=== PATIENT | female | born 1960 | race Caucasian/White ===

== ENCOUNTER 2019-07-25 11:08 | Outpatient (CLI) | payer OTHER, SELFPAY ==
--- NOTE | ~2019-07-25 | US_ITS ---
EXAMINATION: US abdomen limited EXAM DATE: 07/25/2019 11:52 INDICATION: Nausea, right upper quadrant pain, symptoms one week. TECHNIQUE: Multiple grayscale and Doppler images of the abdomen right upper quadrant were obtained (b y a technologist who performed the scan) and subsequently reviewed. There is no prior study for kiesha mock. FINDINGS: The pancreatic head and body are normal in appearance. The pancreatic tail is not visualized. The l iver has normal echogenicity and contour. There are no focal liver lesions identified. There is no evidence of intrahepatic biliary duct dilation. Portal venous flow was seen in the hepatopedal, nor mal direction and has normal Doppler waveform. No right-sided hydronephrosis. Common bile duct measures 5 mm, which is normal. The gallbladder wall is normal in thickness, with ex pected amount of distention. No sonographic evidence of pericholecystic fluid. There is no cholelit hiases. Technologist performing exam reports patient did not demonstrate sonographic Morrison's sign. Please note that this sign is less reliable in patients who have received pain medication. IMPRESSION: 1. Unremarkable abdominal ultrasound exam. Reviewed, dictated and finalized at location B. ODUCTION TECHNICIAN
--- NOTE | ~2019-07-25 | XR_ITS ---
EXAMINATION: XR abdomen/kub 1V EXAM DATE: 07/25/2019 11:35 INDICATION: Nausea. Right-sided abdominal pain. History of hernia repair. TECHNIQUE: Frontal projection(s) of the abdomen for interpretation. There is no prior study for kiesha mock. FINDINGS: There is expected amount of colonic stool and gas. No small bowel dilation, nonobstructiv e bowel gas pattern. There are no suspicious calcifications identified. There is no organomegaly suspected. Moderate disc disease L4-5. IMPRESSION: Unremarkable abdomen x-ray exam. Reviewed, dictated and finalized at location B. RONMENTAL COORDINATOR
== END 2019-07-25 11:09 | disposition home or self-care (01) ==
PROVIDERS: PCP Family Medicine; Visit Provider Family Medicine
DX: R10.11 Right upper quadrant pain (principal)
CPT/HCPCS: 74018; 76705

== ENCOUNTER 2020-11-23 10:15 | Emergency (ER) | payer OTHER, SELFPAY ==
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
[2020-11-23 10:23] VITALS: BP 116/70; PULSE 71; RESP 16; TEMP 36.3; O2SAT 99
== END 2020-11-23 10:44 | disposition home or self-care (01) ==
PROVIDERS: Emergency Provider Nurse Practitioner Family; PCP Family Medicine
DX: S05.02XA Injury of conjunctiva and corneal abrasion without foreign body, left eye, initial encounter (principal); X58.XXXA Exposure to other specified factors, initial encounter; Z85.3 Personal history of malignant neoplasm of breast
CPT/HCPCS: 99213; A9270; G0463

== ENCOUNTER 2021-01-13 11:58 | Outpatient (CLI) | payer OTHER, SELFPAY ==
--- NOTE | ~2021-01-13 | XR_ITS ---
EXAMINATION: XR chest 2V DATE: 01/13/2021 12:17 INDICATION: Shortness of breath. TECHNIQUE: Frontal and lateral views of the chest were obtained. COMPARISON: Chest 2 views 03/03/2018, CT abdomen and pelvis 03/03/2018 FINDINGS: There is mild atelectasis in left lower lung zone. No pleural effusion or pneumothorax. The heart size is normal. IMPRESSION: 1. Mild atelectasis in left lower lung zone. Reviewed, dictated and finalized at location B.
== END 2021-01-13 11:59 | disposition home or self-care (01) ==
LOC: ANHIMG 12:04
PROVIDERS: PCP Family Medicine; Visit Provider Family Medicine
DX: R09.89 Other specified symptoms and signs involving the circulatory and respiratory systems (principal); R06.02 Shortness of breath; R91.8 Other nonspecific abnormal finding of lung field
CPT/HCPCS: 71046

== ENCOUNTER → 2021-05-27 01:50 | Outpatient (CLI) | payer OTHER, SELFPAY ==
[2021-05-28 03:59] LABS: SARS-CoV-2 RNA PCR Negative
== END ==
PROVIDERS: PCP Family Medicine; Visit Provider Physician Assistant
DX: J02.9 Acute pharyngitis, unspecified (principal); R51.9 Headache, unspecified; Z20.822 Contact with and (suspected) exposure to COVID-19
CPT/HCPCS: C9803; U0003; U0005

== ENCOUNTER 2021-07-07 15:06 | Emergency (ER) | payer OTHER, SELFPAY ==
[2021-07-07 15:15] VITALS: BP 138/80; PULSE 74; RESP 16; TEMP 36.7; O2SAT 98
--- NOTE | 2021-07-07 15:16 | ED.URI ---
HPI - URI/Sore Throat General Chief Complaint: Upper Respiratory Infection Stated Complaint: Sinus headache, tight chest. Time Seen by Provider: 07/07/21 15:06 Source: patient and RN notes reviewed History of Present Illness HPI Narrative: Patient is 61-year-old female who presents the urgent care with complaints of 3-week history of sinus headache and drainage. Patient states that 2 weeks ago she was placed on a Z-Sandor and steroids. States that she finished a Z-Sandor and took 3 days of the steroids. States that ever since she took the steroid she has had a funny tight feeling in the chest . Patient states that her upper respiratory symptoms are her typical allergy-like symptoms . Denies of any recent fevers, nausea, vomiting or shortness of breath. Patient states that her PCP was supposed to order her an outpatient x-ray, which was not found in the computer system. Patient denies of any recent cough or exposures to illness. Denies of any chest pain or cardiac history. No other acute complaints. No acute distress noted. Patient read the plan of care. Some parts of this dictation were generated by voice recognition software and may contain typographical and/or grammatical inaccuracies. Related Data Home Medications Medication Instructions Recorded Confirmed alprazolam 0.5 mg tablet 0.5 mg PO DAILY 04/06/19 07/07/21 calcium carbonate 600 mg-vitamin 1 tablet PO DAILY 04/06/19 07/07/21 D3 20 mcg (800 unit) chewable tablet clonazepam 1 mg tablet 1 mg PO DAILY 04/06/19 07/07/21 coenzyme Q10 200 mg capsule 200 mg PO DAILY 04/06/19 07/07/21 famotidine 20 mg tablet 20 mg PO DAILY 04/06/19 07/07/21 fluticasone propionate 50 2 spray NASAL DAILY 04/06/19 07/07/21 mcg/actuation nasal spray,suspension sertraline 100 mg tablet 100 mg PO DAILY 04/06/19 07/07/21 Allergies Allergy/AdvReac Type Severity Reaction Status Date / Time Barbiturates Allergy Severe ANALPHALAXI Verified 07/07/21 15:20 S belladonna alkaloids Allergy Severe ANALPHALAXI Verified 07/07/21 15:20 S Cephalosporins Allergy Severe RASH Verified 07/07/21 15:20 cortisone Allergy Severe HIVES Verified 07/07/21 15:20 phenobarbital Allergy Severe ANALPHALAXI Verified 07/07/21 15:20 S cat dander Allergy Unknown Sneezing Verified 07/07/21 15:20 cephalexin Allergy Unknown serum Verified 07/07/21 15:20 sickness Corticosteroids Allergy Unknown Skin Verified 07/07/21 15:20 (Glucocorticoids) Reaction docetaxel Allergy Unknown Asthma Verified 07/07/21 15:20 mold Allergy Unknown Sneezing Verified 07/07/21 15:20 Penicillins Allergy Unknown Rash Verified 07/07/21 15:20 prochlorperazine Allergy Unknown dystonic Verified 07/07/21 15:20 reaction ciprofloxacin [From Cipro] Allergy Unknown Verified 07/07/21 15:20 ANTICHOLINERGICS,OTHER Allergy Severe ANALPHALAXI Uncoded 07/07/21 15:20 S Review of Systems Review of Systems: CONSTITUTIONAL: Denies fever, chills, or sweats. EYES: Denies visual changes, redness, or discharge. ENT: Reports of sinus pressure/headache, congestion and postnasal drainage CARDIOVASCULAR: Reports of a funny feeling in the chest . Denies chest pain, palpitations, or edema. RESPIRATORY: Denies cough or dyspnea. GASTROINTESTINAL: Denies abdominal pain, nausea, vomiting, or diarrhea. GENITOURINARY: Denies dysuria or hematuria. SKIN: Denies rash or itching. MUSCULOSKELETAL: Denies back pain, joint pain, or myalgia. NEUROLOGIC: Denies headache, numbness, or weakness. All other systems reviewed are negative, except as documented in HPI. [facility] Past Medical History Medical History (Updated 07/07/21 @ 16:10 by ÁNGELA Alex) Breast cancer (~2012) Cyst (~10/24/08) Encounter for HCV screening test for low risk patient (~09/24/17) History of bone density study (~07/19/12) Mammogram normal (~07/02/11) Surgical History Surgical History History of breast biopsy (~07/29/12) Hist
[2021-07-07 15:21] VITALS: BP 138/80; PULSE 74; RESP 16; TEMP 36.7; O2SAT 98
--- NOTE | 2021-07-07 15:39 | ECG_ITS ---
Measurements Intervals [place] Rate: 63 P: 23 VT: 179 QRS: -67 QRSD: 114 T: 1 QT: 465 QTc: 479 Interpretive Statements SINUS RHYTHM INCOMPLETE RIGHT BUNDLE BRANCH BLOCK LEFT ANTERIOR FASCICULAR BLOCK BORDERLINE T WAVE ABNORMALITY- INFERIOR LEADS BASELINE ARTIFACT- I, II, III, AVR, AVL, AVF ABNORMAL ECG Electronically Signed On 07-07-2021 16:44:06 CONTROL CLERK HEAD by Ady Still D.O.
== END 2021-07-07 16:15 | disposition home or self-care (01) ==
PROVIDERS: Emergency Provider Nurse Practitioner Family; PCP Family Medicine
DX: J32.9 Chronic sinusitis, unspecified (principal); Z85.3 Personal history of malignant neoplasm of breast
CPT/HCPCS: 93005; 99213; G0463

== ENCOUNTER → 2021-07-23 02:19 | Outpatient (CLI) | payer OTHER, SELFPAY ==
[2021-07-23 12:41] LABS: SARS-CoV-2 RNA PCR Positive
== END ==
PROVIDERS: PCP Family Medicine; Visit Provider Family Medicine
DX: U07.1 COVID-19 (principal)
CPT/HCPCS: C9803; U0003; U0005

== ENCOUNTER 2021-10-28 10:16 | Emergency (ER) | payer OTHER, SELFPAY ==
--- NOTE | ~2021-10-28 | CT_ITS ---
EXAMINATION: CT abdomen pelvis wo con DATE: 10/28/2021 11:38 INDICATION: Right lower quadrant abdominal pain TECHNIQUE: Computed tomography (CT) of the abdomen and pelvis was performed without intravenous contr ast. Automated exposure control and iterative reconstruction technique were employed. The dose-length product was 788.89 mGy-cm. COMPARISON: 03/03/2018 FINDINGS: Mild linear discoid atelectasis at the lingula. Heart size is normal. Atherosclerotic coronary artery calcific location. Aortic valve calcification. No pericardial or pleural effusion. Persistent wall t hickening at the distal esophagus. Changes consistent with prior right mastectomy and right breast im plant reconstruction. Liver, gallbladder, spleen, pancreas, right adrenal gland and kidney are normal . Postoperative changes interval left nephrectomy and adrenalectomy. Bladder is normal. The uterus an d right ovary are not identified and have likely been surgically resected. There are few scattered cl onic diverticula without adjacent inflammatory change to suggest diverticulitis. Small bowel and appe ndix are normal. No free intraperitoneal gas or fluid. No pathologically enlarged abdominal or pelvic lymphadenopathy. Severe spondylosis at L4-L5. IMPRESSION: 1. Normal appendix. No acute intra-abdominal/pelvic process. 2. Persistent wall thickening the distal esophagus suggestive of esophagitis which could be due to re flux. 3. Multiple postoperative changes as detailed above. Reviewed, dictated and finalized at location B. IMPRESSION: 1. Normal appendix. No acute intra-abdominal/pelvic process. 2. Persistent wall thickening the distal esophagus suggestive of esophagitis wh ich could be due to reflux. 3. Multiple postoperative changes as detailed above.
[2021-10-28 10:37] VITALS: BP 122/56; PULSE 65; RESP 14; TEMP 36.2; O2SAT 98
[2021-10-28 10:56] LABS: Basophils Absolute Auto 0.1 K/mm3 (0.0-0.1); Basophils Percent Auto 1.5 % (0.2-1.2); Eosinophils Absolute Auto 0.4 K/mm3 (0-0.3); Hematocrit 42.1 % (37.0-47.0); Hemoglobin 13.2 g/dL (12.0-15.0); Immature Granulocyte Absolute 0.05 K/mm3 (0.00-0.031); Immature Granulocyte Percent A 0.6 % (0-0.5); Lymphocytes Absolute Auto 2.93 K/mm3 (0.9-3.2); Lymphocytes Percent Auto 33.4 % (18.3-44.2); Mean Corpuscular HGB Conc 31.4 g/dl (32-36); Mean Corpuscular Volume 92.5 fl (80-100); Mean Platelet Volume 10.1 fl (7.4-10.4); Monocytes Absolute Auto 0.8 K/mm3 (0.1-0.6); Monocytes Percent Auto 8.8 % (2.6-8.5); Neutrophils Absolute Auto 4.5 K/mm3 (1.3-6.7); Neutrophils Percent Auto 50.7 % (45.5-73.1); Platelet Count Result 325 k/mm3 (150-375); Red Blood Count 4.55 M/mm3 (4.2-5.4); Red Cell Distribution Width 13.2 % (11.5-14.5); White Blood Count 8.8 K/mm3 (4.5-10.0)
[2021-10-28 11:04] LABS: Appearance Urine Clear (Clear); Bilirubin Urine Negative (Negative); Blood Urine Negative (Negative); Color Urine Yellow (Yellow); Glucose Urine UA Negative (Negative); Ketones Urine Negative (Negative); Leukocyte Esterase Ur Negative LEU/UL (Negative); Nitrate Urine Negative (Negative); Protein Urine Negative (Negative); Specific Grav Ur 1.015 (1.001-1.035); Urobilinogen Urine 0.2 mg/dL (<2.0); pH Urine 5.5 (5.0-9.0)
[2021-10-28 11:06] LABS: Chloride 104 mmol/L (98-107); Potassium 4.4 mmol/L (3.4-5.0); Sodium 139 mmol/L (137-145)
[2021-10-28 11:07] LABS: Add Urine Microscopic? NO; Alanine Aminotransferase 37 U/L (6-35); Albumin Level 4.6 g/dL (3.5-5.1); Alkaline Phosphatase 97 U/L (38-126); Anion Gap 9 mmol/L (8-16); Aspartate Amino Transferase 30 U/L (14-36); Bilirubin,Total 0.3 mg/dL (0.2-1.3); Blood Urea Nitrogen 18 mg/dL (7-17); Calcium 9.5 mg/dL (8.4-10.2); Carbon Dioxide 26 mmol/L (22-30); Estimated Glomerular Filt Rate 50; Glucose 94 mg/dL (65-110); Lipase 203 U/L (23-300)
[2021-10-28 12:25] VITALS: BP 123/69; PULSE 65; RESP 18; O2SAT 98
--- NOTE | 2021-10-28 12:44 | ED.ABDPAIN ---
HPI - Abdominal Pain General Chief Complaint: Abdominal Pain Stated Complaint: abd pain Time Seen by Provider: 10/28/21 11:26 History of Present Illness HPI narrative: 61-year-old female presenting with left lower quadrant pain, she has occasionally had pain like this before but this time she came in because it wasn't going away. She describes it as less of a pain and more like an annoyance, it does not radiate anywhere, she does not have any nausea, vomiting, or diarrhea or constipation, she is having normal bowel movements, no fevers no chills. No dysuria. Has taken some Tylenol at home which did improve her symptoms. Related Data Home Medications Medication Instructions Recorded Confirmed alprazolam 0.5 mg tablet (Xanax) 0.5 mg PO DAILY 04/06/19 10/13/21 calcium carbonate 600 mg-vitamin 1 tablet PO DAILY 04/06/19 10/13/21 D3 20 mcg (800 unit) chewable tablet (Caltrate 600 plus D) coenzyme Q10 200 mg capsule (Co 200 mg PO DAILY 04/06/19 10/13/21 Q-10) famotidine 20 mg tablet 20 mg PO DAILY 04/06/19 10/13/21 fluticasone propionate 50 2 spray intranasal DAILY 04/06/19 10/13/21 mcg/actuation nasal spray,suspension sertraline 100 mg tablet 100 mg PO DAILY 04/06/19 10/13/21 clonazepam 0.5 mg tablet (Klonopin) 0.5 mg PO DAILY 07/21/21 10/13/21 estradiol (Estrace) See Rx Instructions vaginal DAILY 07/21/21 10/13/21 Allergies Allergy/AdvReac Type Severity Reaction Status Date / Time Barbiturates Allergy Severe ANALPHALAXI Verified 10/13/21 09:30 S belladonna alkaloids Allergy Severe ANALPHALAXI Verified 10/13/21 09:30 S Cephalosporins Allergy Severe RASH Verified 10/13/21 09:30 cortisone Allergy Severe HIVES Verified 10/13/21 09:30 phenobarbital Allergy Severe ANALPHALAXI Verified 10/13/21 09:30 S cat dander Allergy Unknown Sneezing Verified 10/13/21 09:30 cephalexin Allergy Unknown serum Verified 10/13/21 09:30 sickness Corticosteroids Allergy Unknown Skin Verified 10/13/21 09:30 (Glucocorticoids) Reaction docetaxel Allergy Unknown Asthma Verified 10/13/21 09:30 mold Allergy Unknown Sneezing Verified 10/13/21 09:30 Penicillins Allergy Unknown Rash Verified 10/13/21 09:30 prochlorperazine Allergy Unknown dystonic Verified 10/13/21 09:30 reaction ciprofloxacin [From Cipro] Allergy Unknown Verified 10/13/21 09:30 ANTICHOLINERGICS,OTHER Allergy Severe ANALPHALAXI Uncoded 10/13/21 09:30 S Review of Systems Review of Systems: CONST: No fever. HEENT: No sore throat C/V: No chest pain RESP: No cough GI: Reports abdominal discomfort in the left lower quadrant : No dysuria. M/S: No joint pain. SKIN: No rash. NEURO: [No headache or focal numbness or weakness] PSYCH: [No depression] [facility] Past Medical History Medical History Breast cancer (~2012) Cyst (~10/24/08) Encounter for HCV screening test for low risk patient (~09/24/17) History of bone density study (~07/19/12) Mammogram normal (~07/02/11) Surgical History Surgical History History of breast biopsy (~07/29/12) History of section (~1987) History of colonoscopy (~06/21/09) History of hernia surgery (~05/29/19) History of kidney removal (~02/2018) History of shoulder surgery (~2004) History of vaginal hysterectomy (~09/24/17) Family History Family History Grandparent Family history of mental disorder Malignant neoplasm of prostate Family history of malignant neoplasm of breast Mother Hypertension Family history of malignant neoplasm Sibling Hypertension Cerebrovascular accident Father Cerebrovascular accident Malignant neoplasm of prostate Family history of coronary artery disease Diabetes mellitus Family history of cardiovascular disease Family history of malignant neoplasm of thyroid Other Family history of elevated blood lipids Soci
== END 2021-10-28 13:03 | disposition home or self-care (01) ==
PROVIDERS: Emergency Provider Emergency Medicine; PCP Family Medicine
DX: R10.32 Left lower quadrant pain (principal); Z85.3 Personal history of malignant neoplasm of breast
CPT/HCPCS: 36415; 74176; 80053; 81003; 83690; 85025; 99284

== ENCOUNTER → 2022-08-14 11:30 | Outpatient (CLI) | payer OTHER, SELFPAY ==
--- NOTE | ~2022-08-14 | XR_ITS ---
Lumbosacral Spine: AP, oblique, and lateral views Clinical History: Pain Findings: The normal lordotic curve is maintained. No fracture or subluxation seen. There is advanced degenerative disc narrowing at L4-L5. There is mild facet arthropathy from L4 through S1. The sacroi liac joints are normally outlined. Impression: Overall mild to moderate degenerative spondylosis, as detailed above. Reviewed, dictated and finalized at location . Impression: Overall mild to moderate degenerative spondylosis, as detailed above.
--- NOTE | ~2022-08-14 | XR_ITS ---
Thoracic spine: Clinical Indication: Back pain AP and lateral views were performed. No fracture is seen. There is normal alignment of the vertebrae. There is probable DISH of the lower thoracic spine. The intervertebral disc spaces appear normal. Paravertebral soft tissues appear norm al. Impression: DISH of the lower thoracic spine. Reviewed, dictated and finalized at location . Impression: DISH of the lower thoracic spine.
== END ==
PROVIDERS: PCP Family Medicine; Visit Provider Family Medicine
DX: M48.14 Ankylosing hyperostosis [Forestier], thoracic region (principal); M47.896 Other spondylosis, lumbar region
CPT/HCPCS: 72070; 72110

== ENCOUNTER 2023-02-04 08:41 | Outpatient (CLI) | payer OTHER, SELFPAY ==
--- NOTE | ~2023-02-04 | DEXA_ITS ---
Bone Density Report Name: JERROD MCCRAY Age: 62 Sex: Female Ethnicity: White Date of : 1960 Indication: postmenopausal; screening for osteoporosis; Referring Provider: IVELISSE BLEDSOE Study: Bone densitometry was performed. Exam Date: February 04, 2023 Accession number: [id number] Bone Density: Region BMD T-score Z-score Classification AP Spine(L1-L4) 0.994 -0.5 1.3 Normal Femoral Neck (Left) 0.696 -1.4 0.1 Osteopenia Total Hip (Left) 0.832 -0.9 0.3 Normal Femoral Neck (Right) 0.646 -1.8 -0.3 Osteopenia Total Hip (Right) 0.752 -1.6 -0.4 Osteopenia Total Hip Mean 0.792 -1.3 -0.1 Osteopenia World Health Organization criteria for BMD impression classify patients as: Normal (T-score at or above -1.0), Osteopenia (T-score between -1.0 and -2.5), or Osteoporosis (T-score at or below -2.5). 10-year Fracture Risk(1): Major Osteoporotic Fracture 9.2% Hip Fracture 1.1% Reported Risk Factors: [place] (), Neck BMD=0.646, BMI=34.4 (1) FRAX(R) Version 3.08. Fracture probability calculated for an untreated patient. Fracture probability may be lower if the patient has received treatment. Clinical Information Provided by Patient: Menopause Age: 38 Impression: The patient has low bone mass, based on the Right Femoral Neck T-score. The patient has an estimated ten-year risk of hip fracture of 1.1% and an estimated ten-year risk of major fracture of 9.2%, based on the WHO FRAX algorithm. Discussion: BONE DENSITY IS LOW AT ONE OR MORE SKELETAL SITES. This patient's lowest T-score is low at one or more skeletal sites. It meets the World Health Organization's (WHO) criteria for ?low bone mass? (T-score between -1.0 and -2.5). The patient's 10-year risk of fracture as calculated by FRAX is less than the threshold where pharmacological therapy is recommended by the National Osteoporosis Foundation (NOF). However, all treatment decisions require clinical judgment and consideration of individual patient factors, including patient preferences, comorbidities, previous drug use, risk factors not captured in the FRAX model (e.g., frailty, falls, vitamin D deficiency, increased bone turnover, interval significant decline in bone density) and possible under or overestimation of fracture risk by FRAX. The patient should follow a healthful lifestyle (good nutrition with adequate calcium and vitamin D, and appropriate weight-bearing exercise). Follow-Up: Consider repeating this study in 2 to 3 years to reassess this patient's status, or sooner if there is some new clinical indication. Reported by: DESIREE on 02/04/2023 9:27:00 AM. Reviewed, dictated and finalized at location AArthur SUNSHINE
--- NOTE | ~2023-02-04 | MM_ITS ---
CORRECTED REPORT Exam description change [facility] 02/04/23 This report was recreated on 02/04/23. Original report was EXAMINATION: MM screening primitivo LT w matt HISTORY: Screening mammogram TECHNIQUE: Craniocaudal and mediolateral oblique 3-D tomosynthesis images were obtained and synthetic 2-D images were generated. CAD analysis was submitted and interpreted. COMPARISON: July 22, 2012 diagnostic right mammogram and right breast ultrasound examination July 19, 2012 bilateral screening mammogram BREAST PARENCHYMAL COMPOSITION: The left breast is heterogeneously dense, which may obscure small masses. FINDINGS: There are a few scattered punctate benign-appearing microcalcifications. There is no evidence of suspicious mass, calcification, or architectural distortion to suggest malignancy. There has been no suspicious interval change. IMPRESSION: 1. Status post right mastectomy for breast cancer No mammographic evidence of malignancy of left breast. 2. Recommend routine screening mammography in one year. BI-RADS Category 2: Benign finding(s). Reviewed, dictated and finalized at location A. MTDD IMPRESSION: 1. Status post right mastectomy for breast cancer No mammographic evidence of m alignancy of left breast. 2. Recommend routine screening mammography in one year. BI-RADS Category 2: Benign finding(s).
== END 2023-02-04 08:42 | disposition home or self-care (01) ==
PROVIDERS: PCP Family Medicine; Visit Provider Family Medicine
DX: Z12.31 Encounter for screening mammogram for malignant neoplasm of breast (principal); Z78.0 Asymptomatic menopausal state; M85.852 Other specified disorders of bone density and structure, left thigh; M85.851 Other specified disorders of bone density and structure, right thigh
CPT/HCPCS: 77063; 77067; 77080

== ENCOUNTER → 2023-03-25 10:47 | Outpatient (CLI) | payer OTHER, SELFPAY ==
--- NOTE | ~2023-03-25 | US_ITS ---
EXAMINATION: US thyroid DATE: 03/25/2023 11:05 INDICATION: Nontoxic single thyroid nodule. TECHNIQUE: Multiple ultrasound images of the thyroid were obtained. COMPARISON: None. FINDINGS: The right thyroid lobe measures 5.3 x 2.1 x 1.6 cm. The left thyroid lobe measures 4.1 x 1.6 x 1.4 c m. There is normal echotexture and echogenicity throughout the thyroid gland. No discrete nodules id entified. Normal vascular flow is present. IMPRESSION: 1. Normal thyroid. Reviewed, dictated and finalized at location E. IMPRESSION: 1. Normal thyroid.
== END ==
PROVIDERS: PCP Nurse Practitioner; Visit Provider Nurse Practitioner
DX: E04.1 Nontoxic single thyroid nodule (principal)
CPT/HCPCS: 76536

== ENCOUNTER 2023-12-28 09:25 | Emergency (ER) | payer BC, SELFPAY ==
[2023-12-28] VITALS (39 sets, daily range): BP systolic 120–155; BP diastolic 59–88; PULSE 72–101; RESP 12–29; TEMP 36.3–37.4; O2SAT 96–100
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
--- NOTE | 2023-12-28 09:27 | ECG_ITS ---
Test Date: 2023-12-28 09:42:34 Measurements Intervals [place] Rate: 70 P: 17 WI: 169 QRS: -57 QRSD: 109 T: -1 QT: 422 QTc: 458 Interpretive Statements SINUS RHYTHM INCOMPLETE RIGHT BUNDLE BRANCH BLOCK LEFT ANTERIOR FASCICULAR BLOCK BORDERLINE T WAVE ABNORMALITY- INFERIOR LEADS BASELINE ARTIFACT- I, II, III, AVR, AVL, AVF, V1-V5 ABNORMAL ECG No previous ECG available for comparison Electronically Signed On 12-28-2023 10:22:16 CDT by Ady Still D.O.
[2023-12-28 09:56] LABS: Basophils Absolute Auto 0.1 K/mm3 (0.0-0.1); Basophils Percent Auto 0.9 % (0.2-1.2); Eosinophils Absolute Auto 0.6 K/mm3 (0-0.3); Eosinophils Percent Auto 4.2 % (0-4.4); Hematocrit 22.8 % (37.0-47.0); Immature Granulocyte Percent A 0.7 % (0-0.5); Lymphocytes Absolute Auto 2.62 K/mm3 (0.9-3.2); Lymphocytes Percent Auto 19.4 % (18.3-44.2); Mean Corpuscular HGB Conc 28.1 g/dl (32-36); Mean Corpuscular Hemoglobin 20.4 pg (26-34); Mean Corpuscular Volume 72.6 fl (80-100); Mean Platelet Volume 9.7 fl (7.4-10.4); Monocytes Absolute Auto 1.1 K/mm3 (0.1-0.6); Monocytes Percent Auto 7.8 % (2.6-8.5); Platelet Count Result 541 k/mm3 (150-375); Red Blood Count 3.14 M/mm3 (4.2-5.4); Red Cell Distribution Width 16.4 % (11.5-14.5); White Blood Count 13.5 K/mm3 (4.5-10.0)
--- NOTE | 2023-12-28 10:00 | ED.RECABL ---
HPI - Recheck/Abnormal Lab/Rx General Chief Complaint: Recheck/Abnormal Lab/Rx <Luann Schrader PA-C - Last Filed: 12/29/23 09:20> Stated Complaint: hgb recheck <Luann Schrader PA-C - Last Filed: 12/29/23 09:20> Time Seen by Provider: 12/28/23 09:27 <LEANNE Whitman Last Filed: 12/29/23 09:20> Source: patient <LEANNE Whitman Last Filed: 12/29/23 09:20> Mode of arrival: ambulatory <LEANNE Whitman Last Filed: 12/29/23 09:20> Limitations: no limitations <LEANNE Whitman Last Filed: 12/29/23 09:20> History of Present Illness HPI narrative: Patient is a 63-year-old female who presents the ED with report of abnormal labs. Patient reports over the last few weeks she has noticed increased fatigue, muscle fatigue with simple exercises, shortness of breath with exertion, chest tightness, intermittent lightheadedness. She had a routine appointment with her primary care doctor today and had labs drawn yesterday which showed a hemoglobin of 6.5. She was then return to the ED for further evaluation. Patient reports history of anemia as a child and after a hysterectomy several years ago, but denies known history recently. She had routine labs drawn in July which showed hemoglobin of 12.4. Patient denies any recent bleeding, vaginal bleeding, hematuria, epistaxis, rectal bleeding, melena. She had a colonoscopy in 2019 which was normal. States she is due for 1 next year. Denies current chest pain, nausea, vomiting, abdominal pain, headache, vision changes, focal weakness or numbness. <LEANNE Whitman Last Filed: 12/29/23 09:20> Related Data Home Medications: Home Medications Medication Instructions Recorded Confirmed calcium carbonate 600 mg-vitamin 1 tablet PO DAILY 04/06/19 12/22/23 D3 20 mcg (800 unit) chewable tablet (Caltrate 600 plus D) coenzyme Q10 200 mg capsule (Co 200 mg PO DAILY 04/06/19 12/22/23 Q-10) fluticasone propionate 50 2 spray intranasal DAILY 04/06/19 12/22/23 mcg/actuation nasal spray,suspension sertraline 100 mg tablet 100 mg PO DAILY 04/06/19 12/22/23 estradiol 0.01% (0.1 mg/gram) See Rx Instructions vaginal DAILY 07/21/21 12/22/23 vaginal cream (Estrace) clonazepam 0.5 mg tablet (Klonopin) 0.5 mg PO DAILY 02/12/22 12/22/23 alprazolam 0.5 mg tablet (Xanax) 0.5 mg PO DAILY PRN 03/09/22 12/22/23 cholecalciferol (vitamin D3) 25 25 mcg PO DAILY 07/07/22 12/22/23 mcg (1,000 unit) tablet Saccharomyces boulardii 250 mg 250 mg PO BID 03/29/23 12/22/23 capsule (Daily Probiotic (S. boulardii)) <Luann Schrader PA-C - Last Filed: 12/29/23 09:20> Allergies/Adverse Reactions: Allergies Allergy/AdvReac Type Severity Reaction Status Date / Time Barbiturates Allergy Severe ANALPHALAXI Verified 12/28/23 08:49 S belladonna alkaloids Allergy Severe ANALPHALAXI Verified 12/28/23 08:49 S Cephalosporins Allergy Severe RASH Verified 12/28/23 08:49 cortisone Allergy Severe HIVES Verified 12/28/23 08:49 phenobarbital Allergy Severe ANALPHALAXI Verified 12/28/23 08:49 S cat dander Allergy Unknown Sneezing Verified 12/28/23 08:49 cephalexin Allergy Unknown serum Verified 12/28/23 08:49 sickness Corticosteroids Allergy Unknown Skin Verified 12/28/23 08:49 (Glucocorticoids) Reaction docetaxel Allergy Unknown Asthma Verified 12/28/23 08:49 mold Allergy Unknown Sneezing Verified 12/28/23 08:49 Penicillins Allergy Unknown Rash Verified 12/28/23 08:49 prochlorperazine Allergy Unknown dystonic Verified 12/28/23 08:49 reaction ciprofloxacin [From Cipro] Allergy Unknown Verified 12/28/23 08:49 hydromorphone [From Dilaudid] AdvReac Severe hallucinati Verified 12/28/23 08:49 on ANTICHOLINERGICS,OTHER Allergy Severe ANALPHALAXI Uncoded 12/28/23 08:49 S <Luann Schrader PA-C - Last Filed: 12/29/23 09:20> Review of Systems Review of Sys
[2023-12-28 10:07] LABS: Alanine Aminotransferase 25 U/L (6-35); Albumin Level 4.3 g/dL (3.5-5.1); Alkaline Phosphatase 135 U/L (38-126); Anion Gap 8 mmol/L (4-12); Aspartate Amino Transferase 29 U/L (14-36); Bilirubin,Total 0.3 mg/dL (0.2-1.3); Blood Urea Nitrogen 17 mg/dL (7-17); Calcium 9.6 mg/dL (8.4-10.2); Carbon Dioxide 28 mmol/L (22-30); Chloride 99 mmol/L (98-107); Estimated CRCL calculation 61 ml/min; Estimated Glomerular Filt Rate > 60; Glucose 102 mg/dL (65-110); Potassium 4.5 mmol/L (3.4-5.0); Sodium 135 mmol/L (137-145)
[2023-12-28 10:08] LABS: Partial Thromboplastin Time 22.8 Seconds (22.3-36.8); Prothrombin Time 13.4 Seconds (11.1-14.7)
[2023-12-28 10:12] LABS: Iron 20 ug/dL (37-170)
[2023-12-28 10:13] LABS: Transferrin 416 mg/dL (206-381)
[2023-12-28 10:17] LABS: Hemoglobin 6.4 g/dL (12.0-15.0); Hypochromasia 3+; Platelet Estimate Increased (Adequate)
[2023-12-28 10:18] LABS: Anisocytosis 2+; Microcytosis 1+ (NORMAL); Ovalocytes 2+; Poikilocytosis 2+; Schistocytes None Seen; Target Cells 1+
[2023-12-28 10:25] LABS: NT Pro B Type Natriuretic Pept 61 pg/mL (19.9-100); Percent Iron Saturation 4 % (20-50); Troponin I < 0.012 ng/mL (0.000-0.034)
[2023-12-28 10:43] LABS: Thyroid Stimulating Hormone Reflex 0.638 uIU/mL (0.465-4.68)
[2023-12-28 10:47] LABS: Ferritin 4.05 ng/mL (11.1-264)
[2023-12-28 11:09] LABS: Appearance Urine Clear (Clear); Bilirubin Urine Negative (Negative); Blood Urine Negative (Negative); Color Urine Yellow (Yellow); Glucose Urine UA Negative (Negative); Ketones Urine Negative (Negative); Leukocyte Esterase Ur Negative LEU/UL (Negative); Nitrate Urine Negative (Negative); Protein Urine Negative (Negative); Specific Grav Ur 1.019 (1.001-1.035); Urobilinogen Urine 0.2 mg/dL (<2.0); pH Urine 6.5 (5.0-9.0)
[2023-12-28 11:13] LABS: Folic Acid 6.5 ng/mL (2.76->20)
[2023-12-28 11:18] LABS: Add Urine Microscopic? NO
--- NOTE | 2023-12-28 11:30 | PC.NURSE ---
blood consent signed and in chart
[2023-12-28] MEDS: SODIUM CHLORIDE 0.9% IV 250 ML 30 ML IV CONT (11:45)
--- NOTE | 2023-12-28 17:42 | PC.NURSE ---
1740 Spoke with Manuela from [facility]. Gave her an updated set of vitals and she states we should get a bed tonight.
--- NOTE | 2023-12-28 18:00 | PC.NURSE ---
Dinner tray ordered for pt.
[2023-12-28 18:58] LABS: Hematocrit 27.5 % (37.0-47.0); Hemoglobin 8.2 g/dL (12.0-15.0)
--- NOTE | 2023-12-28 19:53 | PC.NURSE ---
This RN assumed care of pt @[id number]
[2023-12-28] MEDS: ACETAMINOPHEN 500 MG TABLET 1000 MG PO (19:59)
== END 2023-12-29 00:27 | disposition short-term general hospital (02) ==
PROVIDERS: Physician Assistant; Emergency Provider Student in an Organized Health Care Education/Training Program; PCP Family Medicine
DX: D64.9 Anemia, unspecified (principal); R16.0 Hepatomegaly, not elsewhere classified; K92.2 Gastrointestinal hemorrhage, unspecified; Z85.3 Personal history of malignant neoplasm of breast; Z90.710 Acquired absence of both cervix and uterus; Z90.5 Acquired absence of kidney; Z79.899 Other long term (current) drug therapy; I45.2 Bifascicular block; R94.31 Abnormal electrocardiogram [ECG] [EKG]
CPT/HCPCS: 36415; 36430; 71046; 74177; 80053; 81003; 82607; 82728; 82746; 83540; 83550; 83880; 84443; 84466; 84484; 85014; 85018; 85025; 85610; 85730; 86850; 86900; 86901; 86920; 93005; 96360; 99285; A9270; J7050; P9016; Q9967

== ENCOUNTER 2024-06-10 14:04 | Emergency (ER) | payer OTHER, BC, SELFPAY ==
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
[2024-06-10 14:35] VITALS: BP 118/54; PULSE 78; RESP 18; TEMP 36.7; O2SAT 98
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
[2024-06-10 20:22] VITALS: BP 120/62; PULSE 73; RESP 18; O2SAT 98
== END 2024-06-10 20:59 | disposition home or self-care (01) ==
PROVIDERS: Emergency Provider Physician Assistant; PCP Family Medicine
DX: S16.1XXA Strain of muscle, fascia and tendon at neck level, initial encounter (principal); V49.40XA Driver injured in collision with unspecified motor vehicles in traffic accident, initial encounter
CPT/HCPCS: 70450; 72125; 72128; 72131; 73030; 99284

== ENCOUNTER 2024-10-19 08:19 | Outpatient (CLI) | payer BC, SELFPAY ==
--- NOTE | ~2024-10-19 | MM_ITS ---
EXAMINATION: MM screening primitivo LT w matt HISTORY: Screening TECHNIQUE: Craniocaudal and mediolateral oblique 3-D tomosynthesis images were obtained and synthetic 2-D images were generated. CAD analysis was submitted and interpreted. COMPARISON: Comparison to multiple prior studies sequentially, with oldest reviewed study dated 07/19. BREAST PARENCHYMAL COMPOSITION: Dense: The breasts are heterogeneously dense, which may obscure small masses FINDINGS: There is a new focal asymmetry in the upper outer quadrants of the left breast, posterior t hird. There are adjacent new calcifications which are indeterminate. There are no suspicious areas of architectural distortion. IMPRESSION: 1. New focal left breast asymmetry upper outer quadrant of the left breast, posterior third. There ar e adjacent indeterminate clustered calcifications. 2. Additional mammographic views and possible breast ultrasound are recommended. BI-RADS Category 0: Incomplete: Needs additional imaging evaluation. Reviewed, dictated and finalized at location [] IMPRESSION: 1. New focal left breast asymmetry upper outer quadrant of the left breast, pos terior third. There are adjacent indeterminate clustered calcifications. 2. Additional mammographic views and possible breast ultrasound are recommended . BI-RADS Category 0: Incomplete: Needs additional imaging evaluation.
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
--- OUTSIDE RECORDS SUMMARY | 2024-10-19 08:24 | XMS_ITS | Continuity of Care Document ---
Author Organization [facility] Address [address] [place] [address] Phone Care Team Providers Care Ap Operator Name Role Phone Myers OD, Farzad Unavailable Unavailable Advance Directives Directive Yes / No Effective Date File Name No Information Encounters Encounter Description Practice Location Reason(s) For Visit Diagnoses Date Provider Providers Copied on Encounter [facility], [address], [place], [place], [id number], [place] tel:[phone] [facility] No Information Sep-0 5-200 6 Myers OD Farzad. [address] , [address], [place], [address], [place]. tel:[phone] Family History Family Member Type Diagnosis Age At Onset No Information Payers Payer name Insurance type Covered green party ID Authoriza tion(s) No Information Social History Type Description Quantity Date Captured Comments Sex Female Smoking Status No Information Chief Complaint And Reason For Visit No Information Reason For Referral Reason For Referral No Information History Of Present Illness Encounter Date Complaint History Of Prese nt Illness No Information Functional Status Date Functional Assessmen t No Information Instructions Date Instruction Additional Infor mation No Information Assessments Type Assessment Date No Information Patient Care Teams Name Effective Dates (start - stop) Status Members No Information
--- OUTSIDE RECORDS SUMMARY | 2024-10-19 08:24 | XMS_ITS | Clinical Summary ---
Author Organization [facility] Medical [facility] 1 Address [address] [place] [address] Care Team Providers Care Stable Helper Name Role Phone Ashwini Enciso DO Primary Care Provider [phone] Allergies Active Allergy Reactions Criticality Noted Date Comments Cat Hair Std Allergenic Ext Other (See comments) Low 07/28/2012 Hay Fever Cephalexin Other (See comments),Rash Medium 10/29/2007 Red serum syndrome Ciprofloxacin Rash Medium 08/29/2012 And burning Cortisone Hives,Rash Medium 07/28/2012 Cortisone injection Hydrocortisone Urticaria Medium 10/29/2007 Injection only Docetaxel Nausea And Vomiting,Other (See comments),Shortness of breath High 10/13/2012 Facial flushing Mold Extracts Other (See comments) Low 07/28/2012 Hay fever Penicillins Rash Medium 07/28/2012 Prochlorperazine Anaphylaxis High 10/29/2007 Medications ALPRAZolam (XANAX) 1 mg tabletIndicatio ns:anxiety Take 1 mg by mouth daily as needed. 3 01/24/2018 Active cholecalciferol (VITAMIN D-3) 2,000 unit capsuleIndicati ons:Vitamin D Deficiency Take 1 capsule by mouth every morning. 02/13/2016 Active clonazePAM (KlonoPIN) 1 mg tabletIndicatio ns:Panic Disorder,Also takes 0.5mg nightly Take 1 mg by mouth 2 (two) times a day 1mg in am and 0.5 nightly Active coenzyme Q10 100 mg capsule Take 200 mg by mouth every morning. Active famotidine (PEPCID) 20 mg tabletIndicatio ns:gastroesopha geal reflux disease Take 20 mg by mouth every morning 08/31/2012 Active sertraline (ZOLOFT) 100 mg tabletIndicatio ns:Generalized Anxiety Disorder Take 100 mg by mouth nightly. Active metoprolol (LOPRESSOR) 50 mg tabletIndicatio ns:hypertension Take 50 mg by mouth 2 (two) times a day. Active calcium carbonate (CALCIUM 600 ORAL)Indication s:SUPPLEMENT Take 1 tablet by mouth nightly. Active estradiol (ESTRACE) 0.01 % (0.1 mg/gram) vaginal cream Insert 2 g into the vagina as needed Active lisinopril-hydr oCHLOROthiazide (ZESTORETIC) 10-12.5 mg per tablet Take by mouth 10/29/2007 Active atorvastatin (LIPITOR) 20 mg tablet TK 1 T PO D 04/11/2020 Active Active Problems Problem Noted Date Diagnosed Date Incisional hernia, without obstruction or gangre ne 02/16/2019 Overview (02/16/2019): Added automatically from request for surgery [id number] Renal mass 03/04/2018 Overview (03/04/2018): Added automatically from request for surgery [id number] Acute postoperative abdominal pain Hx of total cystectomy Immunizations Immunization Administration Dates Next Due Influenza, Unspecified 02/14/2019 Surgical History Surgery Date Site/Laterality Comments HYSTERECTOMY SECTION OOPHERECTOMY 05/31/2007 - 05/30/2008 MASTECTOMY Right BREAST RECONSTRUCTION SHOULDER SURGERY Left for shoulder adhesiolysis PORTACATH PLACEMENT PORT REMOVAL 09/28/2013 - 10/28/2013 COLONOSCOPY EMBOLIZATION ORGAN ISCHEMIA OR INFARCTION 03/10/2018 N/A NEPHRECTOMY RADICAL 03/10/2018 Left TONSILLECTOMY 05/31/1963 - 05/30/1964 INCISIONAL HERNIA REPAIR 05/29/2019 Robotic repair Medical History Medical History Date Comments Hypertension Breast cancer (HCC) Anxiety History of chemotherapy 08/2013 right br east cancer Depression Hyperlipidemia Anemia Renal mass GERD (gastroesophageal reflux disease) Panic attacks Hernia of abdominal cavity incis ional-LLQ Motion sickness PONV (postoperative nausea and vomiting) has not occurred with her most recent surgeries Gastric reflux Family History Medical History Relation Name Comments Coronary artery disease Brother Cancer Father Coronary artery disease Father Hypertension Father Stomach cancer Father Stroke Father Thyroid cancer Father Anemia Mother Heart failure Mother Heart disease Other Stroke Sister Anesthesia problems Neg Hx Relation Name Status Comments Brother Father Mother Other Sister Social History Tobacco Use Types Packs/Day Years Used Date Smoking Tobacco: Never Smokeless Tobacco: Never Alcohol Use Standard Drinks/Week Comments Yes 0 (1 standard drink = 0.6 oz pur e alcohol) rare/social Comments No Sex and Gender Information Value Date Recorded Sex Assigned at Not on file Legal Sex Female 6:25 AM [employer] Gender Identity Not on file Sexual Orientation Not on file Obstetrics History Last Filed Vital Signs Vital Sign Reading Time Taken Comments Blood Pressure 113/73 06/18/2020 8:35 AM [employer] Pulse 72 06/18/2020 8:35 AM [employer] Temperature 36.4 C (97.5 F) 06/18/2020 8:35 AM [employer] Respiratory Rate 15 06/01/2019 9:05 AM CLERK [employer] Oxygen Saturation 93% 06/01/2019 9:05 AM [employer]ERK [employer] Inhaled Oxygen Concentration - - Weight 93.9 kg (207 lb) 06/18/2020 8:35 AM [employer] Height 167.6 cm (5' 6 ) 06/18/2020 8:35 AM CL[employer] Body Mass Index 33.41 06/18/2020 8:35 AM CLERK [employer] Plan of Treatment Health Maintenance Due Date Last Done Comments Breast Cancer Screening-Mammogram 1958 Colon Cancer Screening-Colonoscopy 1960 Depression Screening 1958 Fall Risk Assessment 1958 Hepatitis C Screening 1958 Osteoporosis Screening-Bone Density Scan 1958 DTaP/Tdap/Td Vaccine (1 - Tdap) 1969 Hepatitis B Screening 1976 Pneumococcal vaccine 65+ (1 of 1 - PCV) 2008 Zoster Vaccine (1 of 2) 2008 Well Visit 65+ 2023 Influenza Vaccine (Season Ended) 2025 02/28/2019, 02/14/2019, 04/18/2018 Medical Devices Implanted Type Area [employer]er [employer] Dies Device Identifier Shelf Expiration Date Model / Serial / Lot [employer] Inc/C R Bard [id number] Bard Marlex [id number] Monofilament Gold Standard Flat Sheet - [id number] Implanted:Qty: 1 on 05/29/2019 by Robb Maier MD at [facility] Mesh N/A: Abdomen [employer]/C R Bard [id number] 04/27/2022 [id number] / / [id number] [employer] [id number] Carter 6mm 14cm 7.4 Loop Catheter End Hole Arterial Venous Coil - [id number] Implanted:Qty: 1 on 03/10/2018 at [facility] [employer] 08/28/2021 [id number] / / [id number] [employer] [id number] Carter 6mm 14cm 7.4 Loop Catheter End Hole Arterial Venous Coil - [id number] Implanted:Qty: 1 on 03/10/2018 at [facility] [employer] 08/28/2021 [id number] / / [id number] [employer] [id number] Carter 6mm 14cm 7.4 Loop Catheter End Hole Arterial Venous Coil - [id number] Implanted:Qty: 1 on 03/10/2018 at [facility] [employer] 08/28/2021 [id number] / / [id number] [employer] [id number] Carter 6mm 14cm 7.4 Loop Catheter End Hole Arterial Venous Coil - [id number] Implanted:Qty: 1 on 03/10/2018 at [facility] [employer] 07/28/2022 [id number] / / [id number] [employer] [id number] Carter 6mm 14cm 7.4 Loop Catheter End Hole Arterial Venous Coil - [id number] Implanted:Qty: 1 on 03/10/2018 at [facility] [employer] 06/05/2020 [id number] / / [id number] [employer] [id number] Carter 6mm 14cm 7.4 Loop Catheter End Hole Arterial Venous Coil - [id number] Implanted:Qty: 1 on 03/10/2018 at [facility] [employer] 08/13/2021 [id number] / / [id number] [employer] [id number] Angio-Seal Vip [employer]-Plus 6fr .035in 70cm Hemostatic Latex Free - [id number] Implanted:Qty: 1 on 03/10/2018 at [facility] [employer] 10/28/2018 [id number] / / [id number] Insurance [facility] H[facility]/PPO Address: [address] [place] [address] CHO[facility] H[facility]/PPO Address: [address] [place] [address] [employer] [facility] HMO/PPO Address: [address] [address] [place] [address] Advance Directives For more information, please contact: [phone] Documents on File Type Date Recorded Patient 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
--- OUTSIDE RECORDS SUMMARY | 2024-10-19 08:24 | XMS_ITS | Encounter Summary ---
Author Organization [employer] Address [address] [place] [address] Care Team Providers Care Residential Treatment Counselor Name Role Phone Ashwini Enciso DO Primary Care Provider +1- [phone] Reason for Referral * CT Scan (Routine) - Closed Specialty Diagnoses / Procedures Referred By Kimberley le Referred To Contact Diagnoses Cecal cancer (CMS/HCC) Mouth sores Encounter for antineoplastic chemotherapy Procedures CT CHEST ABDOMEN PELVIS W CONT Ness Guzman MD [address] [place] [address] Phone: tel: fax: [facility] [address] [place] [address] Phone: tel: fax: Referral ID Status Reason Start Date Expiration Date Visits Re quested Visits Authorized [id number] Closed 10/10/2024 12/08/2024 1 1 Reason for Visit * CT Scan (Routine) - Closed Specialty Diagnoses / Procedures Referred By Kimberley le Referred To Contact Diagnoses Cecal cancer (CMS/HCC) Mouth sores Encounter for antineoplastic chemotherapy Procedures CT CHEST ABDOMEN PELVIS W Ness Ferreira MD [address] [facility] [place] [address] Phone: tel: fax: [facility] [address] [place] [address] Phone: tel: fax: Referral ID Status Reason Start Date Expiration Date Visits Re quested Visits Authorized [id number] Closed 10/10/2024 12/08/2024 1 1 Encounter Details Date Type Department Care Team (Latest Contact Info) Description 10/17/2024 11:43 AM CDT - 10/17/2024 11:59 PM CDT Hospital Encounter [facility] Imaging Services [address] [place] [id number] Ness Guzman MD [address] [place], [place] [id number] Arrived Discharge Disposition: Home or Self Care Social History Tobacco Use Types Packs/Day Years Used Date Smoking Tobacco: Never Smokeless Tobacco: Never Alcohol Use Standard Drinks/Week Comments Yes 0 (1 standard drink = 0.6 oz pur e alcohol) rare Feeling Safe Answer Date Recorded Are you in a relationship wi th someone who hurts you emotionally and/or physically? 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 180 Tablet 10/07/2024 3:43 PM CDT 10/06/2024 omeprazole (PriLOSEC) 20 mg Capsule, Delayed Release(E.C.) Take 1 Capsule (20 mg) by mouth daily. 90 Capsule 1 09/13/2024 9:37 AM CDT 09/12/2024 sertraline (ZOLOFT) 100 mg tablet Take 1 Tablet (100 mg) by mouth daily. 90 Tablet 1 08/29/2024 11:43 AM CDT 08/28/2024 metoprolol tartrate (LOPRESSOR) 50 mg tablet Take 1 Tablet (50 mg) by mouth 2 times daily (every 12 hours). 180 Tablet 1 08/26/2024 10:56 AM CDT 08/25/2024 PEG-Electrolyte Soln (NULYTELY) 420 g Recon Soln Take 4,000 mL by mouth see administration instructions. 4000 mL 08/11/2024 3:10 PM CDT 08/08/2024 ALPRAZolam (XANAX) 1 mg tablet Take 1 Tablet (1 mg) by mouth 1 time daily as needed. 30 Tablet 5 07/07/2024 3:09 PM WEB ANALYST 07/06/2024 lidocaine-alumi num-magnesium hydroxide-simet hicone-diphenhy drAMINE mouthwash Swish and spit or swish and swallow 5 mL by mouth every 6 hours as needed for mouth sores. 300 mL 3 06/28/2024 8:21 AM WEB ANALYST 06/27/2024 VITAMIN B COMPLEX ORAL Take by mouth. atorvastatin (LIPITOR) 20 mg tablet Take 1 Tablet (20 mg) by mouth daily. 90 Tablet 1 04/19/2024 9:35 AM WEB ANALYST 01/10/2024 clonazePAM (KlonoPIN) 0.5 mg Tablet Take 1 Tablet (0.5 mg) by mouth 2 times daily. 180 Tablet 1 04/07/2024 9:53 AM WEB ANALYST 01/06/2024 omeprazole (PriLOSEC) 20 mg Capsule, Delayed Release(E.C.) Take 20 mg by mouth daily. estradioL (Estrace) 0.01% (0.1 mg/g) vaginal creamIndication s:Vaginal dryness INSERT 1 GRAM VAGINALLY 2 TO 3 TIMES EVERY WEEK NEEDED 42.5 Gram 3 03/20/2020 triamcinolone acetonide (NASACORT BOTH NOSTRIL) Administer in each nostril. Cholecalciferol , Vitamin D3, (VITAMIN D3) 2,000 unit Capsule Take 1 Capsule by mouth daily. 02/13/2016 coenzyme Q10 100 mg Capsule Take 200 mg by mouth daily. metoprolol tartrate (LOPRESSOR) 50 mg Oral tablet Take 50 mg by mouth 2 times daily. sertraline (ZOLOFT) 100 mg tablet Take 100 mg by mouth daily. documented as of this encounter Progress Notes * Aleida Roper, RT - 10/17/2024 12:30 PM CDT Computed Tomography Medication and Flush Protocol - Imaging Services [facility] THIS PROTOCOL IS IMPLEMENTED WHEN AN APPROVED PROVIDER ORDERS A CT SCAN WITH CONTRAST BY PAPER OR ELECTRONIC ORDER. ORDERS ARE ENTERED ???PER PROTOCOL OR STANDING - COSIGN REQUIRED.?? Enter the protocol in the patient's electronic health record using [employer] Communication Orders: For ordered imaging procedures requiring intravenous access: Initiate a peripheral IV, if not already in place, and discontinue IV prior to discharge. Medication Orders: *Any exception to these contrast protocols must be approved by a Radiologist and documented in the EHR Progress notes. When multiple medications are listed with the comment ???OR?? them, select the first option until challenges from product availability make this option unavailable Local anesthetic for use to initiate IV: ADULT Lidocaine 4% topical cream (L.M.X.4) applied topically ONE TIME prior to IV catheter insertion PRN (L.M.X.4 % should be applied 15 minutes prior to procedure) PEDIATRIC Lidocaine 4% topical cream (L.M.X.4) applied topically ONE TIME prior to IV catheter insertion PRN (apply 30 minutes prior to procedure) Sucrose 24% (Squirts) given PO prior to IV catheter insertion (administer 1 - 2 minutes prior to procedure) OR Sucrose 24% (Tootsweet; Sweet-Ease) oral solution 0.2 mL oral (apply to tongue on pacifier or clean, gloved finger), ONE TIME 2 minutes prior to painful procedure. May repeat dose x1 PRN to complete procedure. Sodium chloride 0.9% (normal saline) flush up to 10 mLs PRN for IV evaluation, saline lock, or medication administration. Sodium chloride 0.9% (normal saline) bolus up to 200 mLs PRN for power injection IV evaluation and IV Contrast flush. For all invasive procedures: obtain Lidocaine 1% for intra-procedure administration. If Lidocaine 1% unavailable, may substitute Lidocaine 2%. Procedure Specific Medications: When multiple medications are listed with the comment ???OR?? them, select the first option until challenges from product availability make this option unavailable. CT ORAL CONTRAST PROTOCOLS FOR ADULTS Use Iopamidol 76% (Isovue 370) [370 mg/mL organically bound iodine] OR Iopamidol 61% (Isovue 300) [300 mg/mL organically bound iodine] OR Iohexol (Omnipaque) [240 mg/ml organically bound iodine] (SUBJECT TO AVAILABILITY) for CT scan unless patient has a documented allergy to contrast dye. If allergy present, use Barium Sulfate (Creamy Vanilla Smoothie Readi-Cat 2 OR EZ Paque) for procedure. If at any time the [place] Operator has a question about which option to administer, seek clarification from a Radiologist. Iopamidol 76% (Isovue 370) [370 mg/mL organically bound iodine]: 15ml added to 900mL of clear liquid of patient's choice. Preferred route is oral. May use nasoenteric tube if needed. Administer 900mLof the diluted Iopamidol (Isovue- 370), orally, one time only. Iopamidol 61% (Isovue 300) [300 mg/mL organically bound iodine]: 300mg/ml: 30ml added to 960mL of clear liquid of patient's choice. Preferred route is oral. May use nasoenteric tube if needed. Administer 960mL of the diluted Isovue 300, orally, one time only. Iohexol (Omnipaque) [240 mg/ml organically bound iodine]: 50ml added to 960mL of clear liquid of patient's choice. Preferred route is oral. May use nasoenteric tube if needed. (SUBJECT TO AVAILABILITY). Administer 960mL of the diluted Omipaque, orally, one time only. Barium Sulfate (Creamy Vanilla Smoothie Readi-Cat 2) oral suspension: Preferred route is oral. May use nasoenteric tube if needed. Administer 450mL of barium sulfate, orally, one time only. OR Barium Sulfate (EZ Paque /Vanilla Silq) 96% oral suspension: Preferred route is oral. May use nasoenteric tube if needed. Administer 900mL of barium sulfate, orally, one time only. Bariatric Patient: Post-Surgery to 1 year - 50 mL total volume. NO carbonated liquids lopamidol 61% (Isovue 300) [300 mg/mL organically bound iodine]: mixed with water. Draw 50 mL of mixed solution for patient. Preferred route is orally. May use nasoenteric tube if needed. OR lohexol (Omnipaque) 240 mg/mL [organically bound iodine]: mixed with water. Draw 50mL of mixed solution for patient. Preferred route is orally. May use nasoenteric tube if needed. (SUBJECT TO AVAILABILITY) After 1 year - no more than 236 mL (8oz) total volume. NO carbonated liquids. lopamidol 61% (Isovue 300) 300 mg/mL [organically bound iodine]: mixed with water OR lohexol (Omnipaque) 240 mg/mL organically bound iodine: mixed with water (SUBJECT TO AVAILABILITY) For Enterography, give patient 450ml Breeza, a flavored beverage. For Cystogram (CT Pelvis): Iopamidol 61% (Isovue 300) 300 mg/mL [organically bound iodine] 50mL, diluted with 250mL of sterileNS. Inject Isovue into 250mL bag of NS. Clamp vora catheter prior to instilling solution via catheter. Instill up to 300mL of Isovue and NS solution into bladder via catheter, one time CT ORAL CONTRAST PROTOCOLS FOR PEDIATRICS When multiple medications are listed with the comment ???OR?? them, select the first option until challenges from product availability make this option unavailable. Pediatrics = up to age 18 Pediatric Radiologist will approve of one of the following products selected for procedure. Barium Sulfate (Creamy Vanilla Smoothie Readi-Cat 2 OR EZ Paque 96% oral suspension: preferred route is oral. May use nasoenteric tube if needed. [place] to 3 months Administer up to 90mL of Barium Sulfate, orally, one time only 4 months to 1 year old Administer up to 240mL of Barium sulfate, orally, one time only 1 year old to 5 years old Administer up to 360mL of Barium sulfate, orally, one time only 5 years old to 10 years old Administer up to 480mL of Barium sulfate, orally, one time only Over 10 years old Administer up to 600mL of Barium sulfate, orally, one time only Iopamidol 76% (Isovue 370) [370 mg/mL organically bound iodine] oral solution OR Iohexol (Omnipaque) [240 mg/ml organically bound iodine]: oral solution (SUBJECT TO AVAILABILITY) Dilute 25mL of Iopamidol with 480mL of clear liquid of patient's choice. Administer the diluted solution per age as follows: Preferred route is orally. May use nasoenteric tube if needed. Send any remaining diluted Iopamidol (Isovue 370) OR Iohexol (Omnipaque) solution with the patient to CT. Administer 45mL of diluted Iopamidol (Isovue 370) OR Iohexol (Omnipaque) oral solution, orally every 30 minutes x 2 doses. 1 month to 1 year old Administer 120mL of diluted Iopamidol (Isovue 370) OR Iohexol (Omnipaque) oral solution, orally every 30 min x 2 doses. 1 year old to 5 years old Administer 180mL of diluted Iopamidol (Isovue 370) OR Iohexol (Omnipaque)orally every 30 min x 2 doses. 5 years old to 10 years old Administer 240mL of diluted Iopamidol (Isovue 370) OR Iohexol (Omnipaque) orally every 30 min x 2 doses. Over 10 years old Administer 300mL of diluted Iopamidol (Isovue 370) OR Iohexol (Omnipaque) orally every 30 min x [address] RECTAL CONTRAST PROTOCOLS When multiple medications are listed with the comment ???OR?? them, select the first option until challenges from product availability make this option unavailable. ADULTS: Iopamidol 61% (Isovue 300) [300 mg/mL organically bound iodine]: Dilute 30mL of Isovue with 900mL of warm water in an enema bag. Administer the diluted solution rectally via gravity per patient's tolerance, up to 950mLs, one time only. OR Iohexol (Omnipaque) [240 mg/ml organically bound iodine]: Dilute 50mL of Omnipaque with 900mL of warm water in an enema bag. Administer the diluted solution rectally via gravity per patient's tolerance, up to 950mLs, one time only. (SUBJECT TO AVAILABILITY) CT IV CONTRAST PROTOCOLS When multiple medications are listed with the comment ???OR?? them, select the first option until challenges from product availability make this option unavailable. Multiple doses of iodine contrast within a 24-hour period are a risk factor for ANU and should be avoided if possible. Emergent or other unusual circumstances where multiple doses of contrast are required in a short interval time should prompt consideration by the referring professional and radiologist to discuss the risks and benefits of contrast media administration. ADULTS: (If patient is less than 55kg and confirm dose with radiologist) Iopamidol Injection 76% (Isovue 370) [370 mg/mL organically bound iodine]: Administer up to 2.2mL/kg (to MAX of 200mL) of Iopamidol 76%, intravenously, one time only. OR Iopamidol Injection 61% (Isovue 300) [300 mg/mL organically bound iodine]: Administer 2.2mL/kg of Iopamidol 61%, intravenously, one time only. If the exam has been completed before the entire dose has been administered, stop the injection. PEDIATRICS: Use weight-based dosing if patient is less than 55kg and confirm dose with radiologist. to 15 years old Administer up to 2.2mL/kg (to MAX of 80 mL) of Iopamidol Injection 76% (Isovue 370) [370 mg/mL organically bound iodine] intravenously, one time only. 15 years old and older Administer up to 2.2mL/kg (to MAX of 125mL) of Iopamidol Injection 76% (Isovue 370) [370 mg/mL organically bound iodine] intravenously, one time only. Initiating Department: Imaging Services - CT Approved by: P&T Committee 02.03.2024 Approved by: [facility] Committee 02.03.2024 Approved by: Zeke Garcia MD 02.03.2024 Approved by: Vicky Acuna RN [facility] 02.03.2024 Approved by: Tanvir Ayala Appraisal TechnicianLegal Stenographer 02.03.2024 documented in this encounter Plan of Treatment Upcoming Encounters Date Type Department Care Team (Latest Contact Info) Description 10/25/2024 1:00 PM CDT Office Visit [facility] Oncology and Hematology [facility] [address] [address] [place] [address] Ness Guzman MD [address] [facility] [address] [place], [place] [id number] 11/03/2024 12:30 PM CDT Office Visit [facility] Surgical Spec [place] [address] [place] [address] Oma Patten MD [address] [facility] [address] [place] [address] 01/03/2025 7:00 AM CDT Hospital Encounter [facility] GI Lab [address] [facility] [address] [place] [address] Oma Patten MD [address] [facility] [address] [place] [address] Personal history of colon cancer 01/03/2025 7:00 AM CDT - 01/03/2025 7:45 AM CDT Surgery [facility] GI Lab [address] [facility] [address] [place] [address] Oma Patten MD [address] [facility] [address] [place] [address] COLONOSCOPY Scheduled Procedures Name Priority Associated Diagnoses Date/Ti me COLONOSCOPY Personal history of colon cancer 01/03/2025 7:00 AM CDT documented as of this encounter Procedures Procedure Name Priority Date/Time Associated Diagnosis Comments CT CHEST ABDOMEN PELVIS W CONT Routine 10/17/2024 12:25 PM CDT Cecal cancer (CMS/HCC) Mouth sores Encounter for antineoplastic chemotherapy POC CREATININE Routine 10/17/2024 12:12 PM CDT documented in this encounter Results * CT CHEST ABDOMEN PELVIS W CONT (10/17/2024 12:25 PM CDT) Anatomical Region Laterality Modality Chest Computed Tomogra phy 10/17/2024 12:1 4 PM CDT Impressions 10/17/2024 12:56 PM CDT IMPRESSION: 1. Postoperative changes as above. 2. No evidence of metastatic disease. DICTATION LOCATION: Location [address] [place] [address] 10/17/2024 12:[address] CHEST, ABDOMEN , AND PELVIS WITH IV CONTRAST DATE: 10/17/2024 12:25 PM HISTORY: colon cancer staging TECHNIQUE: Transaxial computed tomographic images of the chest, abdomen, and pelvis were obtained following the uneventful administration of 80 ml Isovue 370 according to standard protocol. The examination was performed with the adjustment of mA according to the patient size and/or the use of Iterative Reconstruction Technique. FINDINGS: Comparison is made to exam 12/30/2023. Chest: Coronary artery calcifications are present.A port is present in the right chest wall with catheter terminating in the cavoatrial junction. Right mastectomy change with right breast implant in place. No pulmonary nodule. No pleural effusion is present. No adenopathy is present in the chest. Abdomen/pelvis: The liver, gallbladder, pancreas, spleen adrenals and right kidney normal. The left. Postsurgical changes seen in the right colon. There is atherosclerosis of the aorta. No abdominal or pelvic adenopathy. There is mild degenerative change present at the L4-L5 level. Procedure Note Jorgito Irene MD - 10/17/2024 CT CHEST, ABDOMEN , AND PELVIS WITH IV CONTRAST DATE: 10/17/2024 12:25 PM HISTORY: colon cancer staging TECHNIQUE: Transaxial computed tomographic images of the chest, abdomen, and pelvis were obtained following the uneventful administration of 80 ml Isovue 370 according to standard protocol. The examination was performed with the adjustment of mA according to the patient size and/or the use of Iterative Reconstruction Technique. FINDINGS: Comparison is made to exam 12/30/2023. Chest: Coronary artery calcifications are present.A port is present in the right chest wall with catheter terminating in the cavoatrial junction. Right mastectomy change with right breast implant in place. No pulmonary nodule. No pleural effusion is present. No adenopathy is present in the chest. Abdomen/pelvis: The liver, gallbladder, pancreas, spleen adrenals and right kidney normal. The left. Postsurgical changes seen in the right colon. There is atherosclerosis of the aorta. No abdominal or pelvic adenopathy. There is mild degenerative change present at the L4-L5 level. IMPRESSION: 1. Postoperative changes as above. 2. No evidence of metastatic disease. DICTATION LOCATION: Location [address] [place] [address] [place] Ness Guzman MD CT ORDERABLES Final Result * POC CREATININE (10/17/2024 12:12 PM CDT) CREATININE POC 1.00 0.60 - 1.30 mg/dL 10/17/2024 12:[address] [facility] GFR POC >60 >=60 mL/min/1.7 3 sq meter 10/17/2024 12:[address] [facility] Comment:eGFR calculated with 2020 CKD-EPI equation. Vegetarian diet, extremely high or low muscle mass, and may affect results. Cystatin C with Glomerular Filtration Rate is a suitable alternative for these patients. Blood, whole 10/17/2024 12:1 2 PM CDT 10/17/2024 3:05 PM CDT us Ness Guzman MD POINT OF CARE TESTING Final Res ult [facility] CLIA# [id number] [address] [place] [address] documented in this encounter Visit Diagnoses Diagnosis Cecal cancer (CMS/HCC) Malignant neoplasm of cecum Mouth sores Other and unspecified diseases of the oral soft tissues Encounter for antineoplastic chemotherapy Personal history of colon cancer Personal history of malignant neoplasm of large intestine documented in this encounter Administered Medications Inactive Administered Medications - up to 3 most recent administrations Medication Order MAR Action Action Date Dose Rate Site iopamidoL (ISOVUE-370) 76% injection (drawn from multi-use bulk pack) 70 mL 70 mL, IV, INTRA-PROCEDURE ONCE, 1 dose, Starting on Tu10/17/24 at 1202, Until Tu10/17/24 at 1217, Routine Contrast Given 10/17/2024 12:17 PM CDT 70 mL documented in this encounter Care Teams Residential Treatment Counselor Relationship Specialty Start Date End Date Ashwini Enciso DO [address] [place] [address] PCP - General Family Practice 01/06/21 documented as of this encounter
--- OUTSIDE RECORDS SUMMARY | 2024-10-19 08:24 | XMS_ITS | Encounter Summary ---
Author Organization [facility] Address 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 Oncology and Hematology [facility] [address] [place] [address] Ness Guzman MD [address] [place] [address] 11/03/2024 12:30 PM CDT Office Visit [facility] Surgical Spec [place] [address] [facility] [address] [place] [address] Oma Patten MD [address] [place] [address] [place] [address] 01/03/2025 7:00 AM CDT Hospital Encounter [facility] [address] [place] [address] Oma Patten MD [address] [place] [address] [address] [facility] [place] [address] Personal history of colon cancer 01/03/2025 7:00 AM CDT - 01/03/2025 7:45 AM CDT Surgery [facility] [address] [place] [address] Oma Patten MD [address] [place] [address] [place] [address] COLONOSCOPY Scheduled Procedures Name Priority Associated Diagnoses Date/Ti me COLONOSCOPY Personal history of colon cancer 01/03/2025 7:00 AM CDT documented as of this encounter Visit Diagnoses Not on filedocumented in this encounter Care Teams Weigh Machine Operator Relationship Specialty Start Date End Date Ashwini Enciso DO [address] [place] [address] PCP - General Family Practice 01/06/21 documented as of this encounter
--- OUTSIDE RECORDS SUMMARY | 2024-10-19 08:24 | XMS_ITS | Clinical Summary ---
Author Organization [facility] Address [address] [place] [address] Phone Care Team Providers Care Plate Conditioner Name Role Phone ReinaldoberhaneAshwini loving Primary Care Provider [phone] Allergies Active Allergy Reactions Criticality Noted Date Comments Cat Hair Std Allergenic Ext Other (See Comments) 07/28/2012 Allergies Cephalexin Other (See Comments) 07/28/2012 Red serum syndrome Ciprofloxacin Rash Low 08/29/2012 Cortisone Rash Low 07/28/2012 Docetaxel Shortness of Breath/Wheezing,Nause a and Vomiting,Other (See Comments) High 10/13/2012 Facial flushing Hydromorphone (Bulk) Hallucination Low 01/17/2024 Mold Extracts Other (See Comments) 07/28/2012 Morphine Other (See Comments) 01/17/2024 Makes me vomit Penicillins Rash Low 07/28/2012 Prochlorperazine Anaphylaxis High 07/28/2012 Medications metoprolol tartrate (LOPRESSOR) 50 mg Oral tablet Take 50 mg by mouth 2 times daily. Active sertraline (ZOLOFT) 100 mg tablet Take 100 mg by mouth daily. Active coenzyme Q10 100 mg Capsule Take 200 mg by mouth daily. Active Cholecalcifero l, Vitamin D3, (VITAMIN D3) 2,000 unit Capsule Take 1 Capsule by mouth daily. 6 Active triamcinolone acetonide (NASACORT BOTH NOSTRIL) Administer in each nostril. Active estradioL (Estrace) 0.01% (0.1 mg/g) vaginal creamIndicatio ns:Vaginal dryness INSERT 1 GRAM VAGINALLY 2 TO 3 TIMES EVERY WEEK NEEDED 42.5 Gram 3 10/21/202 0 Active omeprazole (PriLOSEC) 20 mg Capsule, Delayed Release(E.C.) Take 20 mg by mouth daily. Active clonazePAM (KlonoPIN) 0.5 mg Tablet Take 1 Tablet (0.5 mg) by mouth 2 times daily. 180 Tablet 1 04/07/2024 9:53 AM PUMP SERVICER SUPERVISOR 4 Active atorvastatin (LIPITOR) 20 mg tablet Take 1 Tablet (20 mg) by mouth daily. 90 Tablet 1 04/19/2024 9:35 AM PUMP SERVICER SUPERVISOR 4 Active VITAMIN B COMPLEX ORAL Take by mouth. Ac tive lidocaine-alum inum-magnesium hydroxide-virginia thicone-diphen hydrAMINE mouthwash Swish and spit or swish and swallow 5 mL by mouth every 6 hours as needed for mouth sores. 300 mL 3 06/28/2024 8:21 AM PUMP SERVICER SUPERVISOR 5 Active ALPRAZolam (XANAX) 1 mg tablet Take 1 Tablet (1 mg) by mouth 1 time daily as needed. 30 Tablet 5 07/07/2024 3:09 PM PUMP SERVICER SUPERVISOR 5 Active PEG-Electrolyt e Soln (NULYTELY) 420 g Recon Soln Take 4,000 mL by mouth see administration instructions. 4000 mL 08/11/2024 3:10 PM CDT 5 Active metoprolol tartrate (LOPRESSOR) 50 mg tablet Take 1 Tablet (50 mg) by mouth 2 times daily (every 12 hours). 180 Tablet 1 08/26/2024 10:56 AM CDT 5 Active sertraline (ZOLOFT) 100 mg tablet Take 1 Tablet (100 mg) by mouth daily. 90 Tablet 1 08/29/2024 11:43 AM CDT 5 Active omeprazole (PriLOSEC) 20 mg Capsule, Delayed Release(E.C.) Take 1 Capsule (20 mg) by mouth daily. 90 Capsule 1 09/13/2024 9:37 AM CDT 5 Active clonazePAM (KlonoPIN) 0.5 mg Tablet Take 1 Tablet (0.5 mg) by mouth 2 times daily. 180 Tablet 10/07/2024 3:43 PM CDT 5 Active Active Problems Patient Care Coordination No te Formatting of this note migh t be different from the original. 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 67% Surgeon: Graham/Hussein [...] year Assessment & Plan (07/19/2013 9:39 AM PUMP SERVICER SUPERVISOR): Herceptin until August 30 On AI ECHO Feb 61% mammo Left Jul 27 Assessment & Plan (06/07/2013 2:18 PM PUMP SERVICER SUPERVISOR): Herceptin u8ntil Apirl On AI - belly fat; hair not growing ECHO due mammo left October Seroma right breast Assessment & Plan (04/26/2013 10:14 AM PUMP SERVICER SUPERVISOR): hercetpin until August On AI ECHO 65% [...] chemo HTN (hypertension) Hyperlipidemia Panic anxiety syndrome Encounters Date Type Department Care Team Description 10/17/2024 11:43 AM CDT - 10/17/2024 11:59 PM CDT Hospital Encounter [facility] [address] [place] [address] Ness Guzman MD Arrived Discharge Disposition: Home or Self Care 10/17/2024 External Device Data STL ABSTRACTION Provider, Abstract 09/05/2024 External Device Data STL ABSTRACTION Provider, Abstract 08/29/2024 External Device Data STL ABSTRACTION Provider, Abstract 08/29/2024 External Device Data STL ABSTRACTION Provider, Abstract 08/28/2024 External Device Data STL ABSTRACTION Provider, Abstract 08/27/2024 External Device Data STL ABSTRACTION Provider, Abstract 08/26/2024 External Device Data STL ABSTRACTION Provider, Abstract 08/25/2024 External Device Data STL ABSTRACTION Provider, Abstract 08/24/2024 External Device Data STL ABSTRACTION Provider, Abstract 08/23/2024 External Device Data STL ABSTRACTION Provider, Abstract 08/22/2024 External Device Data STL ABSTRACTION Provider, Abstract 08/21/2024 External Device Data STL ABSTRACTION Provider, Abstract 08/20/2024 External Device Data STL ABSTRACTION Provider, Abstract 08/19/2024 External Device Data STL ABSTRACTION Provider, Abstract 08/18/2024 External Device Data STL ABSTRACTION Provider, Abstract 08/17/2024 External Device Data STL ABSTRACTION Provider, Abstract 08/16/2024 External Device Data STL ABSTRACTION Provider, Abstract 08/16/2024 External Device Data STL ABSTRACTION Provider, Abstract 08/15/2024 External Device Data STL ABSTRACTION Provider, Abstract 08/14/2024 External Device Data STL ABSTRACTION Provider, Abstract 08/13/2024 External Device Data STL ABSTRACTION Provider, Abstract 08/12/2024 External Device Data STL ABSTRACTION Provider, Abstract 08/11/2024 External Device Data STL ABSTRACTION Provider, Abstract 08/10/2024 External Device Data STL ABSTRACTION Provider, Abstract 08/09/2024 External Device Data STL ABSTRACTION Provider, Abstract 08/08/2024 Telephone [facility] Surgical Spec [place] [address] [place] [address] Oma Patten MD Colonoscopy 08/08/2024 External Device Data STL ABSTRACTION Provider, Abstract 08/07/2024 External Device Data STL ABSTRACTION Provider, Abstract 08/06/2024 External Device Data STL ABSTRACTION Provider, Abstract 08/05/2024 External Device Data STL ABSTRACTION Provider, Abstract 08/05/2024 External Device Data STL ABSTRACTION Provider, Abstract 08/04/2024 12:30 PM PUMP SERVICER SUPERVISOR Office Visit [facility] Surgical Spec [place] [address] [place] [address] Oma Patten MD History of colon cancer (Primary Dx) 08/04/2024 External Device Data STL ABSTRACTION Provider, Abstract 08/04/2024 External Device Data STL ABSTRACTION Provider, Abstract 08/03/2024 External Device Data STL ABSTRACTION Provider, Abstract 08/02/2024 External Device Data STL ABSTRACTION Provider, Abstract 08/01/2024 External Device Data STL ABSTRACTION Provider, Abstract 07/31/2024 External Device Data STL ABSTRACTION Provider, Abstract 07/30/2024 External Device Data STL ABSTRACTION Provider, Abstract 07/29/2024 External Device Data STL ABSTRACTION Provider, Abstract 07/28/2024 External Device Data STL ABSTRACTION Provider, Abstract 07/27/2024 11:28 AM PUMP SERVICER SUPERVISOR - 07/27/2024 11:59 PM PUMP SERVICER SUPERVISOR Hospital Encounter [facility] [address] [facility] [address] [facility] [place] [address] Ness Guzman MD Discharge Disposition: Home or Self Care 07/27/2024 External Device Data STL ABSTRACTION Provider, Abstract 07/26/2024 External Device Data STL ABSTRACTION Provider, Abstract 07/25/2024 10:38 AM PUMP SERVICER SUPERVISOR - 07/25/2024 11:59 PM PUMP SERVICER SUPERVISOR Hospital Encounter [facility] 3rd Fl [address] [place] [address] Ness Guzman MD Discharge Disposition: Home or Self Care 07/25/2024 10:15 AM PUMP SERVICER SUPERVISOR [facility] [address] [facility] [address] [place] [address] Ness Guzman MD Cecal cancer (CMS/HCC) (Primary Dx); Mouth sores; Encounter for antineoplastic chemotherapy 07/25/2024 9:15 AM PUMP SERVICER SUPERVISOR - 07/25/2024 11:59 PM PUMP SERVICER SUPERVISOR Hospital Encounter [facility] [address] [place] [address] Ness Guzman MD Discharge Disposition: Home or Self Care 07/25/2024 External Device Data STL ABSTRACTION Provider, Abstract 07/24/2024 External Device Data STL ABSTRACTION Provider, Abstract 07/23/2024 External Device Data STL ABSTRACTION Provider, Abstract 07/22/2024 External Device Data STL ABSTRACTION Provider, Abstract from Last 3 Months Family History Medical History Relation Name Comments Healthy Brother x2 Heart Disease Brother x2 Cancer Father thyroid 40's stomach cancer Heart Disease Father thyroid 40's Breast Cancer Maternal Cousin 40 Cancer Mother MDS alive age 77y Breast Cancer Paternal Aunt alive aeg 85y Cancer Paternal Cousin melanoma 32 Cancer Paternal Grandfather prostate 70's Breast Cancer Paternal Grandmother Stroke Sister 1 Healthy Sister 2 Ovarian Cancer Neg Hx Uterine Cancer Neg Hx Relation Name Status Comments Brother x2 Father thyroid 40's Maternal Cousin 40 Alive Mother MDS Alive Paternal Aunt Alive Paternal Cousin melanoma 32 Alive Paternal Grandfather prostate 70's Paternal Grandmother Sister 1 Sister 2 Social History Tobacco Use Types Packs/Day Years Used Date Smoking Tobacco: Never Smokeless Tobacco: Never Tobacco Cessation:Counseling Given: Not Answered Alcohol Use Standard Drinks/Week Comments Yes 0 [...] on file Legal Sex Female 8:11 AM PUMP SERVICER SUPERVISOR Gender Identity Not on file Sexual Orientation Not on file 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 Not on file Not on file Not on file Last Filed Vital Signs Vital Sign Reading Time Taken Comments Blood Pressure 102/64 08/04/2024 12:29 PM PUMP SERVICER SUPERVISOR Pulse 66 07/27/2024 11:35 AM PUMP SERVICER SUPERVISOR Temperature 36.4 C (97.6 F) 07/27/2024 11:35 AM PUMP SERVICER SUPERVISOR Respiratory Rate 16 07/13/2024 11:0 5 AM PUMP SERVICER SUPERVISOR Oxygen Saturation 95% 07/25/2024 10: 03 AM PUMP SERVICER SUPERVISOR Inhaled Oxygen Concentration - - Weight 78.8 kg (173 lb 12.8 oz) 025 12:29 PM PUMP SERVICER SUPERVISOR Height 167.6 cm (5' 6 ) 08/04/2024 12:2 9 PM PUMP SERVICER SUPERVISOR Body Mass Index 28.05 08/04/2024 12:29 PM PUMP SERVICER SUPERVISOR Plan of Treatment Upcoming Encounters Date Type Department Care Team (Latest Contact Info) Description 10/25/2024 1:00 PM CDT Office Visit [facility] Oncology and Hematology [facility] [address] [facility] [address] [place] [address] Ness Guzman MD [address] [facility] [address] [place] [address] 11/03/2024 12:30 PM CDT Office Visit [facility] Surgical Spec [place] [address] [facility] [address] [place] [address] Oma Patten MD [address] [facility] [address] [place] [address] 01/03/2025 7:00 AM CDT Hospital Encounter [facility] [address] [place] [address] Oma Patten MD [address] [facility] [address] [place] [address] Personal history of colon cancer 01/03/2025 7:00 AM CDT - 01/03/2025 7:45 AM CDT Surgery [facility] [address] [place] [address] Oma Patten MD [address] [facility] [address] [place] [address] COLONOSCOPY Scheduled Procedures Name Priority Associated Diagnoses Date/Ti me COLONOSCOPY Personal history of colon cancer 01/03/2025 7:00 AM CDT Health Maintenance Due Date Last Done Comments Pre-Diabetes and Diabetes Screening 1960 DTAP/TDAP/TD VACCINES (1 - Tdap) 1977 PNEUMOCOCCAL VACCINE 50+ YEA RS (1 of 1 - PCV) 2008 ZOSTER VACCINE (1 of 2) 2008 BREAST CANCER SCREENING 02/03/2023 02/04/20 22, 01/20/2021, 12/27/2019, Additional history exists INFLUENZA VACCINE (#1) 2023 02/28/2020 OSTEOPOROSIS SCREENING 08/26/2025 , 02/12/2016, 07/02/2012 RSV VACCINE (60+ or ) (1 - 1-dose 75+ series) 2033 COLORECTAL SCREENING Discontinued 12/30/2023, 12/30/19 24 Colorectal Cancer Screening Discontinued FIT-DNA Q 3 years Discontinued FIT/FOBT Q 1 year Discontinued Flex Sig/CT Colonography Q 5 years Discontinued Medical Devices Implanted Type Area Industrial Real Estate Agent Device Identifier Shelf Expiration Date Model / Serial / Lot Clip Hemolok Lrg [id number] - Csc - [id number] Implanted:Qty : 1 on 01/18/2024 by Oma Patten MD at [facility] Clip N/A: Abdomen TELEFLEX- WECK CLOSURE SYS 05/10/2027 [id number] / / [id number] Clip Hemolok Lrg [id number] - Csc - [id number] Implanted:Qty : 1 on 01/18/2024 by Oma Patten MD at [facility] Clip N/A: Abdomen TELEFLEX- WECK CLOSURE SYS 05/06/2028 [id number] / / [id number] Mammary Silicone Gel 421ml 15-421 - [id number] Implanted:Qty : 1 on 09/01/2013 by Bon Savage MD [place] [facility] Mammary Right: Breast ALLERGAN- MEDICAL 07/28/2018 [id number] / [id number] / Port Powerport Clearvue 8fr Mri [id number] - [id number] Implanted:Qty : 1 on 02/10/2024 by Oma Patten MD at [facility] Port N/A: Chest BARD AARON VASC 06/30/2025 [id number] / / [id number] Explanted Type Area Industrial Real Estate Agent Device Identifier Shelf Expiration Date Model / Serial / Lot Disaster Recovery Analyst Tissue Mammary 500ml [id number]-13 - [id number] Implanted:Qty : 1 on 08/10/2012 by Bon [place] [facility] [place]ed:Qty : 1 on 09/01/2013 by Bon Savage MD [place] [facility] Mammary Right: Breast ALLERGAN- MEDICAL 04/12/2016 [id number] / [id number] / [id number] Description:Filled with 180 ml saline Port Pwrprt Slim Chrnflx Cath 6fr [id number] - [id number] Implanted:Qty : 1 on 08/26/2012 by Ellyn Rod MD [place] [facility] Explanted:Qty : 1 on 09/01/2013 by Bon Savage MD [place] [facility] Port Left: Chest 03/28/2014 [id number] / [id number] / [id number] Procedures Procedure Name Priority Date/Time Associated Diagnosis Comments CT CHEST ABDOMEN PELVIS W CONT Routine 10/17/2024 12:25 PM CDT Cecal cancer (CMS/HCC) Mouth sores Encounter for antineoplastic chemotherapy POC CREATININE Routine 10/17/2024 12:12 PM CDT CBC WITH DIFFERENTIAL Stat 07/25/2024 9:45 AM PUMP SERVICER SUPERVISOR Cecal cancer (CMS/HCC) COMPREHENSIVE METABOLIC PANEL Stat 07/25/2024 9:45 AM PUMP SERVICER SUPERVISOR Cecal cancer (CMS/HCC) COLONOSCOPY REPORT 12/30/2023 11 :20 AM CDT MAMMO 3D JESSICA SCREEN UNI LT W OR WO CAD Routine 02/03/2022 7:54 AM CDT History of kidney cancer Personal history of malignant neoplasm of breast XR DEXA BONE DENSITY AXIAL 1 OR MORE SITES Routine 08/26/2020 8:39 AM CDT Personal history of malignant neoplasm of breast History of kidney cancer Osteoporosis screening Post-menopausal from Last 3 Months or Most Recently Relevant to Health Maintenance Results * CT CHEST ABDOMEN PELVIS W CONT (10/17/2024 12:25 PM CDT) Anatomical Region Laterality Modality Chest Computed Tomogra phy 10/17/2024 12:1 4 PM CDT Impressions 10/17/2024 12:56 PM CDT IMPRESSION: 1. Postoperative changes as above. 2. No evidence of metastatic disease. DICTATION LOCATION: Location [address] [place] [address] 10/17/2024 12:[address] CHEST, ABDOMEN [...] No evidence of metastatic disease. DICTATION LOCATION: [address] [place] Ness Guzman MD CT ORDERABLES Final Result * POC CREATININE (10/17/2024 12:12 PM CDT) CREATININE POC 1.00 0.60 - 1.30 mg/dL 10/17/2024 12:12 PM CDT [facility] GFR POC >60 >=60 mL/min/1.7 3 sq meter 10/17/2024 12:12 PM CDT [facility] Comment:eGFR calculated with 2020 CKD-EPI equation. Vegetarian diet, extremely high or low muscle mass, and may affect results. Cystatin C with Glomerular Filtration Rate is a suitable alternative for these patients. Blood, whole 10/17/2024 12:1 2 PM CDT 10/17/2024 3:05 PM CDT us Ness Guzman MD POINT OF CARE TESTING Final Res ult [facility] CLIA# [id number] [address] [place] [address] * (ABNORMAL) CBC WITH DIFFERENTIAL (07/25/2024 9:45 AM PUMP SERVICER SUPERVISOR) WBC 4.5 4.0 - 9.8 K/uL 07/25/2024 10:24 AM PUMP SERVICER SUPERVISOR [facility] RBC 3.74(L) 3.90 - 4.90 M/uL 07/25/2024 10:24 AM PUMP SERVICER SUPERVISOR [facility] - [facility] HEMOGLOBIN 12.1 11.8 - 14.8 g/dL 07/25/2024 10:24 AM PUMP SERVICER SUPERVISOR [facility] - [facility] HEMATOCRIT 36.8 35.5 - 44.0 % 07/25/2024 10:24 AM [facility] [email or web address] - [facility] MCV 98.4 82.0 - 99.0 fL 07/25/2024 10:24 AM PUMP SERVICER SUPERVISOR [facility] MCH 32.4 27.2 - 32.6 pg 07/25/2024 10:24 AM [facility] - [facility] MCHC 32.9 31.5 - 35.5 g/dL 07/25/2024 10:24 AM [facility] - [facility] RDW 16.6(H) 11.5 - 14.5 % 07/25/2024 10:24 AM [facility] RDW-STDEV 59.5(H) 37.1 - 48.7 fL 07/25/2024 10:24 AM PUMP SERVICER SUPERVISOR [facility] - [facility] PLATELETS 91(L) 140 - 350 K/uL 07/25/2024 10:24 AM [facility] Comment:Platelets verified b y smear review. MPV 9.4 9.3 - 12.4 fL 07/25/2024 10:24 AM [facility] NEUTROPHILS 43 % 07/25/2024 10:24 AM [facility] - . [facility] LYMPHOCYTES 33 % 07/25/2024 10:24 AM [facility] [employer] [facility] - . [facility] MONOCYTES 20 % 07/25/2024 10:24 AM [facility] EOSINOPHILS 3 % 07/25/2024 10:24 AM [facility] - [facility] BASOPHILS 1 % 07/25/2024 10:24 AM [facility] - [facility] IMMATURE GRANULOCYTES 0 % 07/25/2024 10:24 AM [facility] - [facility] NEUTROPHIL ABSOLUTE 1.94 1.90 - 7.00 K/uL 07/25/2024 10:24 AM [facility] - [facility] LYMPHOCYTE ABSOLUTE 1.51 0.70 - 4.50 K/uL 07/25/2024 10:24 AM PUMP SERVICER SUPERVISOR [facility] MONOCYTE ABSOLUTE 0.90 0.10 - 1.30 K/uL 07/25/2024 10:24 AM [facility] - [facility] EOSINOPHIL ABSOLUTE 0.14 0.00 - 0.70 K/uL 07/25/2024 10:24 AM PUMP SERVICER SUPERVISOR [facility] BASOPHILS ABSOLUTE 0.03 0.00 - 0.20 K/uL 07/25/2024 10:24 AM PUMP SERVICER SUPERVISOR [facility] - [facility] IMMATURE GRANULOCYTES ABSOLUTE 0.01 0.00 - 0.03 K/uL 07/25/2024 10:24 AM PUMP SERVICER SUPERVISOR [facility] Blood Venipuncture / Unknown 07/25/2024 9:45 AM PUMP SERVICER SUPERVISOR 07/25/2024 9:57 AM PUMP SERVICER SUPERVISOR Ness Guzmna MD HEMATOLOGY ORDERABLES Final Res ult [facility]# [id number] [address] [facility] [address] [place], [place] [address] * (ABNORMAL) COMPREHENSIVE METABOLIC PANEL (07/25/2024 9:45 AM PUMP SERVICER SUPERVISOR) SODIUM 137 136 - 145 mmol/L 07/25/2024 10:46 AM [facility] [place] POTASSIUM 4.2 3.5 - 5.0 mmol/L 07/25/2024 10:46 AM PUMP SERVICER SUPERVISOR [email or web address] - [facility] [place] CHLORIDE 102 98 - 107 mmol/L 07/25/2024 10:46 AM [facility] [place] CO2 25 22 - 29 mmol/L 07/25/2024 10:46 AM [facility] [place] CALCIUM 9.6 8.6 - 10.2 mg/dL 07/25/2024 10:46 AM [facility] BUN 8 8 - 23 mg/dL 07/25/2024 10:46 AM [facility] CREATININE 0.79 0.51 - 0.95 mg/dL 07/25/2024 10:46 AM [facility] GLUCOSE 112(H) 74 - 99 mg/dL 07/25/2024 10:46 AM [facility] TOTAL PROTEIN 6.7 6.7 - 8.6 g/dL 07/25/2024 10:46 AM [facility] ALBUMIN 4.1 3.5 - 5.2 g/dL 07/25/2024 10:46 AM [facility] BILIRUBIN TOTAL 0.6 0.2 - 1.1 mg/dL 07/25/2024 10:46 AM [facility] ALKALINE PHOSPHATASE 199(H) 35 - 104 U/L 07/25/2024 10:46 AM [facility] AST 78(H) <33 U/L 07/25/2024 10:46 AM [facility] ALT 52(H) <34 U/L 07/25/2024 10:46 AM [facility] GFR >60 >=60 mL/min/1.7 3 sq meter 07/25/2024 10:46 AM [facility] Comment:eGFR calculated with 2020 CKD-EPI equation. Vegetarian diet, extremely high or low muscle mass, and may affect results. Cystatin C with Glomerular Filtration Rate is a suitable alternative for these patients. ANION GAP 10 8 - 16 mmol/L 07/25/2024 10:46 AM [facility] Blood Venipuncture / Unknown 07/25/2024 9:45 AM PUMP SERVICER SUPERVISOR 07/25/2024 9:58 AM PUMP SERVICER SUPERVISOR Narrative [facility] - 07/25/2024 10:46 AM PUMP SERVICER SUPERVISOR Samples containing indocyanine green cause interferences on Total and/or Direct Bilirubin and must not be measured. Ness Guzman MD CHEMISTRY ORDERABLES [id number] [address] [place] [address] * COLONOSCOPY REPORT (12/30/2023 11:20 AM CDT) Narrative Procedure Note Sandi Hernandez MD - 12/30/2023 11:20 AM CDT [facility] Endoscopy Patient Name: Pamela Peralta Procedure Date: 12/30/2023 Date of : 1960 Attending MD: Sandi Hernandez MD, Procedure: Colonoscopy Indications: Iron deficiency anemia Providers: Sandi Hernandez MD Referring MD: Medicines: Monitored Anesthesia Care Complications: No immediate complications. Procedure: Informed consent was obtained for the procedure, including moderate sedation after risks were discussed. Based on the pre-procedure assessment, including review of the patient's medical history, medications, allergies, and review of systems, the patient was deemed to be an appropriate candidate for sedation. A timeout was performed. Continuous ECG monitoring, pulse oximetry, blood pressure monitoring, and direct observation were performed. The Colonoscope was introduced through the anus and advanced to the terminal ileum. The colonoscopy was performed without difficulty. The patient tolerated the procedure well. The quality of the bowel preparation was good. The terminal ileum, ileocecal valve, appendiceal orifice, and rectum were photographed. Estimated Blood Loss: Estimated blood loss was minimal. Findings: Hemorrhoids were found on perianal exam. The terminal ileum appeared normal. Right at the junction of the cecum and ascending, there was an infiltrative non-obstructing medium-sized mass was found in the ascending colon. The mass cratered with heaped up edges and measured ~3x3cm. Oozing was present. This was biopsied with a cold forceps for histology. The exam was otherwise without abnormality on direct and retroflexion views. Impression: - Hemorrhoids found on perianal exam. - The examined portion of the ileum was normal. - Likely malignant ulcerated mass at the junction of the cecum and ascending colon with active oozing. Biopsied. - The examination was otherwise normal on direct and retroflexion views. Recommendation: - [facility] for [facility]. - Await pathology results. - Check CEA and proceed with staging CT for evaluation for metastatic disease. - Oncology +/- CRS evaluation prior to discharge. Sandi Hernandez MD 12/30/2023 11:20:33 AM This report has been signed electronically. Number of Addenda: [address]; [place] [address] us Sandi Hernandez MD GI PROCEDURE ORDERABLES F inal Result * MAMMO SCRN UNI LT 3D JESSICA W OR WO CAD (02/03/2022 7:54 AM CDT) Anatomical Region Laterality Modality Breast Left Mammography 02/03/2022 7:55 AM CDT Impressions 02/03/2022 9:55 AM CDT IMPRESSION: No mammographic evidence of malignancy. RECOMMENDATIONS: Routine screening mammogram in one year. DICTATION LOCATION: [facility] 02/03/2022 9:55 AM CDT EXAM: LEFT UNILATERAL FULL-FIELD DIGITAL SCREENING MAMMOGRAM WITH CAD WITH 3D TOMOSYNTHESIS DATE: 02/03/2022 7:54 AM HISTORY: Personal history of right breast cancer treated with mastectomy. TECHNIQUE: Full-field digital craniocaudad and mediolateral oblique views were obtained of the left breast. Low dose full field digital breast tomosynthesis examination was performed with 2D and 3D acquisitions. Examination is read in conjunction with computer aided detection. COMPARISON: July 2015 through December 2020. BREAST COMPOSITION: Heterogeneously dense, which limits the sensitivity of mammography. FINDINGS: No suspicious mass, suspicious microcalcifications or architectural distortion is identified in the left breast. Since the prior study, there has been no significant interval change. CAD detects no significant abnormality. OVERALL FINAL ASSESSMENT: BI-RADS CATEGORY 1 - Negative Procedure Note Farzad Larson MD - 02/03/2022 EXAM: LEFT UNILATERAL FULL-FIELD DIGITAL SCREENING MAMMOGRAM WITH CAD WITH 3D TOMOSYNTHESIS DATE: 02/03/2022 7:54 AM HISTORY: Personal history of right breast cancer treated with mastectomy. TECHNIQUE: Full-field digital craniocaudad and mediolateral oblique views were obtained of the left breast. Low dose full field digital breast tomosynthesis examination was performed with 2D and 3D acquisitions. Examination is read in conjunction with computer aided detection. COMPARISON: July 2015 through December 2020. BREAST COMPOSITION: Heterogeneously dense, which limits the sensitivity of mammography. FINDINGS: No suspicious mass, suspicious microcalcifications or architectural distortion is identified in the left breast. Since the prior study, there has been no significant interval change. CAD detects no significant abnormality. OVERALL FINAL ASSESSMENT: BI-RADS CATEGORY 1 - Negative IMPRESSION: No mammographic evidence of malignancy. RECOMMENDATIONS: Routine screening mammogram in one year. DICTATION LOCATION: [facility] Arvind Nolasco MD MAMMO ORDERABLES Final Result * XR DEXA BONE DENSITY AXIAL 1 OR MORE SITES (08/26/2020 8:39 AM CDT) Anatomical Region Laterality Modality Digital Radiogra phy 08/26/2020 8:39 AM CDT Impressions 08/26/2020 8:46 AM CDT IMPRESSION: This is a summary page. Please refer to the complete detailed report found in the Imaging Section of the [facility] EMR. Osteopenia. Lumbar Spine: T-Score: -0.3 Left Femoral Neck: T-Score: -1.8 Left Total Femur: T-Score: -1.4 Right Femoral Neck: T-Score: -2.0 Right Total Femur: T-Score: -1.9 Statistical change: No significant change in BMD since the prior exam. FRAX FRACTURE RISK ASSESSMENT: (Only valid Between 40-89 Years Of Age) Risk factors: None. 10 Year Probability Of Fracture Major Osteoporotic: 9.5 % Hip: 1.2 % Comparison population: [place], Race: White A major osteoporotic fracture is defined as a fracture of the spine, forearm, hip or shoulder. Definitions: Normal: T-score above -1.0 Osteopenia T-score less than -1.0 and above -2.5 Osteoporosis: T-score <= -2.5 Follow-up Recommendations: Patients without high risk factors for osteoporosis T-score -1.0 to -1.5 - Consider repeat BMD in 5-10 years T-score -1.5 to - 2.0 - Consider repeat BMD in 3-5 years T-score -2.0 to - 2.5 - Consider repeat BMD every 2 years Patients on treatment for osteoporosis 1-2 years after initiation of treatment and every 2 years thereafter D[address] Dr[address] Farzad Le MD DICTATION LOCATION: 08/26/2020 8:46 AM CDT EXAMINATION: BONE DENSITY STUDY (DXA) DATE: 08/26/2020 8:39 AM HISTORY: 60 years Female. Postmenopausal. PROCEDURE: Planar images of the lumbar spine and hip(s) using a LUNDesti DEXA scanner for bone mineral density determination (BMD). Prior bone density: 02/12/2016 FINDINGS: Lumbar Spine (L1-L4): T-Score: -0.3 1.142 g/sq cm Prior: 1.140 g/sq cm Left Femoral Neck: T-Score: -1.8 0.789 g/sq cm Prior: 0.795 g/sq cm Left Total Femur: T-Score: -1.4 Right Femoral Neck: T-Score: -2.0 0.766 g/sq cm Prior: 0.789 g/sq cm Right Total Femur: T-Score: -1.9 INCIDENTAL FINDINGS: None. Procedure Note Farzad Le MD - 08/26/2020 EXAMINATION: BONE DENSITY STUDY (DXA) DATE: 08/26/2020 8:39 AM HISTORY: 60 years Female. Postmenopausal. PROCEDURE: Planar images of the lumbar spine and hip(s) using a LUNAR DEXA scanner for bone mineral density determination (BMD). Prior bone density: 02/12/2016 FINDINGS: Lumbar Spine (L1-L4): T-Score: -0.3 1.142 g/sq cm Prior: 1.140 g/sq cm Left Femoral Neck: T-Score: -1.8 0.789 g/sq cm Prior: 0.795 g/sq cm Left Total Femur: T-Score: -1.4 Right Femoral Neck: T-Score: -2.0 0.766 g/sq cm Prior: 0.789 g/sq cm Right Total Femur: T-Score: -1.9 INCIDENTAL FINDINGS: None. IMPRESSION: This is a summary page. Please refer to the complete detailed report found in the Imaging Section of the [facility] EMR. Osteopenia. Lumbar Spine: T-Score: -0.3 Left Femoral Neck: T-Score: -1.8 Left Total Femur: T-Score: -1.4 Right Femoral Neck: T-Score: -2.0 Right Total Femur: T-Score: -1.9 Statistical change: No significant change in BMD since the prior exam. FRAX FRACTURE RISK ASSESSMENT: (Only valid Between 40-89 Years Of Age) Risk factors: None. 10 Year Probability Of Fracture Major Osteoporotic: 9.5 % Hip: 1.2 % Comparison population: [place], Race: White A major osteoporotic fracture is defined as a fracture of the spine, forearm, hip or shoulder. Definitions: Normal: T-score above -1.0 Osteopenia T-score less than -1.0 and above -2.5 Osteoporosis: T-score <= -2.5 Follow-up Recommendations: Patients without high risk factors for osteoporosis T-score -1.0 to -1.5 - Consider repeat BMD in 5-10 years T-score -1.5 to - 2.0 - Consider repeat BMD in 3-5 years T-score -2.0 to - 2.5 - Consider repeat BMD every 2 years Patients on treatment for osteoporosis 1-2 years after initiation of treatment and every 2 years thereafter D[address] by Dr[address] Farzad Le MD DICTATION LOCATION: [address] [facility] Arvind Nolasco MD DIAGNOSTIC IMAGING ORDERABLES Final Result from Last 3 Months or Most Recently Relevant to Health Maintenance Insurance RX 12Return Commercial RX [employer] Commercial RX [employer] PLANS (INTERNAL) [facility] Plans MEDICARE PART A HOSPITAL ONLY BCBS OUT OF STATE [facility] Advance Directives For more information, please contact: [phone] * Full Code (Latest Code Status on File) Date Activated Date Inactivated Comments 02/10/2024 12:26 PM 02/10/2024 7:58 PM * Full Code Date Activated Date Inactivated Comments 01/18/2024 5:10 PM 01/20/2024 4:34 PM * Full Code Date Activated Date Inactivated Comments 01/18/2024 5:09 PM 01/18/2024 5:10 PM * Full Code Date Activated Date Inactivated Comments 01/18/2024 2:53 PM 01/18/2024 5:09 PM * Full Code Date Activated Date Inactivated Comments 12/29/2023 2:53 AM 12/31/2023 7:55 PM Care Teams Plate Conditioner Relationship Specialty Start Date End Date Ashwini Enciso DO [address] [place] [id number] PCP - General Family Practice 01/06/21
--- OUTSIDE RECORDS SUMMARY | 2024-10-19 08:24 | XMS_ITS | Referral Summary ---
Author Organization [facility] Medical [facility] 1 Address [address] [place] [address] Care Team Providers Care Historical Society Director Name Role Phone Ashwini Enciso DO Primary Care Provider +1- [phone] Allergies Active Allergy Reactions Criticality Noted Date [...] (02/16/2019): Added automatically from request for surgery [id number] Renal mass 03/04/2018 Overview (03/04/2018): Added automatically from request for surgery [id number] Acute postoperative abdominal pain Hx of total cystectomy Immunizations Immunization Administration Dates Next Due Influenza, Unspecified 02/14/2019 Social History Tobacco Use Types Packs/Day Years Used Date Smoking Tobacco: Never Smokeless Tobacco: Never Alcohol Use Standard Drinks/Week Comments Yes 0 (1 standard drink = 0.6 oz pur e alcohol) rare/social Comments No Sex and Gender Information Value Date Recorded Sex Assigned at Not on file Legal Sex Female 6:25 AM METER 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 Gender Identity Not on file Sexual Orientation Not on file Last Filed Vital Signs Vital Sign Reading Time Taken Comments Blood Pressure 113/73 06/18/2020 8:35 AM METER REPAIRER Pulse 72 06/18/2020 8:35 AM METER REPAIRER Temperature 36.4 C (97.5 F) 06/18/2020 8:35 AM METER REPAIRER Respiratory Rate 15 06/01/2019 9:05 AM METER REPAIRER Oxygen Saturation 93% 06/01/2019 9:05 AM METER REPAIRER Inhaled Oxygen Concentration - - Weight 93.9 kg (207 lb) 06/18/2020 8:35 AM METER REPAIRER Height 167.6 cm (5' 6 ) 06/18/2020 8:35 AM METER REPAIRER Body Mass Index 33.41 06/18/2020 8:35 AM METER REPAIRER Plan of Treatment Not on file Medical Devices Implanted Type Area Staging Technician Device Identifier Shelf Expiration Date Model / Serial / Lot Davol Inc/C R Bard [id number] Bard Marlex [id number] Monofilament Gold Standard Flat Sheet - [id number] Implanted:Qty: 1 on 05/29/2019 by Robb Maier MD at [facility] Mesh N/A: Abdomen [employer] Inc/C R Bard [id number] 04/27/2022 [id number] / / [id number] [employer] [id number] Carter 6mm 14cm 7.4 Loop Catheter End Hole Arterial Venous Coil - [id number] Implanted:Qty: 1 on 03/10/2018 at [facility] [employer] 08/28/2021 [id number] / / [id number] [employer] [id number] Carter 6mm 14cm 7.4 Loop Catheter End Hole Arterial Venous Coil - [id number] Implanted:Qty: 1 on 03/10/2018 at [facility] [employer] 08/28/2021 [id number] / / [id number] [employer] [id number] Carter 6mm 14cm 7.4 Loop Catheter End Hole Arterial Venous Coil - [id number] Implanted:Qty: 1 on 03/10/2018 at [facility] [employer] 08/28/2021 [id number] / / [id number] [employer] [id number] Carter 6mm 14cm 7.4 Loop Catheter End Hole Arterial Venous Coil - [id number] Implanted:Qty: 1 on 03/10/2018 at [facility] [employer] 07/28/2022 [id number] / / [id number] [employer] [id number] Carter 6mm 14cm 7.4 Loop Catheter End Hole Arterial Venous Coil - [id number] Implanted:Qty: 1 on 03/10/2018 at [facility] [employer] 06/05/2020 [id number] / / [id number] [employer] [id number] Carter 6mm 14cm 7.4 Loop Catheter End Hole Arterial Venous Coil - [id number] Implanted:Qty: 1 on 03/10/2018 at [facility] [employer] 08/13/2021 [id number] / / [id number] [employer] [id number] Angio-Seal Vip Bondek-Plus 6fr .035in 70cm Hemostatic Latex Free - [id number] Implanted:Qty: 1 on 03/10/2018 at [facility] [employer] 10/28/2018 [id number] / / [id number] Insurance [facility] H[facility]/PPO Address: [address] [address] [place] [address] [facility] H[facility]/PPO Address: [address] [address] [place] [address] [facility] H[facility]/PPO Address: [facility] [address] [place] [address] Advance Directives For more information, please contact: [phone] Documents on File Type Date Recorded Patient Air Hammer Operator Expl anation ADVANCE DIRECTIVE 05/29/2019 11:54 AM Tawny ing Will * Full Code (Latest Code Status on File) Date Activated Date Inactivated Comments 05/29/2019 8:26 PM 06/01/2019 5:22 PM * Full Code Date Activated Date Inactivated Comments 03/10/2018 7:38 AM 03/14/2018 1:48 PM Care Teams Historical Society Director Relationship Specialty Start Date End Date Ashwini Enciso DO PCP - General Family Medicine 09/22/19
== END 2024-10-19 08:20 | disposition home or self-care (01) ==
LOC: ANHIMG 08:21
PROVIDERS: PCP Family Medicine; Visit Provider Family Medicine
DX: Z12.31 Encounter for screening mammogram for malignant neoplasm of breast (principal); Z98.82 Breast implant status
CPT/HCPCS: 77063; 77067

== ENCOUNTER 2024-11-06 09:30 | Outpatient (CLI) | payer BC, SELFPAY ==
--- NOTE | ~2024-11-06 | XR_ITS ---
Left Shoulder Technique: AP and scapular Y views were obtained. Clinical History: Pain Findings: No fracture or dislocation is seen. Osseous alignment is anatomic. The glenohumeral and acr omioclavicular joint spaces are preserved. Soft tissues are unremarkable. Impression: Unremarkable left shoulder radiographs. Reviewed, dictated and finalized at [facility]. Impression: Unremarkable left shoulder radiographs.
--- NOTE | ~2024-11-06 | XR_ITS ---
Left Hand Technique: PA, oblique, and lateral views were obtained. Clinical History: Pain Findings: There is dorsal dislocation of the third PIP joint. There is an associated displaced, obliq ue, intra-articular fracture at the palmar aspect of the base of the third middle phalanx.. Soft tiss ues are unremarkable. Impression: Dorsal dislocation of the third PIP joint. Associated displaced intra-articular oblique fracture of the palmar aspect of the base of the third m iddle phalanx. Reviewed, dictated and finalized at location M. Impression: Dorsal dislocation of the third PIP joint. Associated displaced intra-articular oblique fracture of the palmar aspect of t he base of the third middle phalanx.
== END 2024-11-06 09:31 | disposition home or self-care (01) ==
LOC: GOSHIMG 09:30
PROVIDERS: PCP Family Medicine; Visit Provider Nurse Practitioner
DX: M79.642 Pain in left hand (principal); M25.512 Pain in left shoulder; S63.095A Other dislocation of left wrist and hand, initial encounter; S62.623A Displaced fracture of middle phalanx of left middle finger, initial encounter for closed fracture
CPT/HCPCS: 73030; 73130

== ENCOUNTER 2024-11-06 10:47 | Outpatient (CLI) | payer BC, SELFPAY ==
--- NOTE | ~2024-11-06 | CT_ITS ---
EXAMINATION: CT brain wo con DATE: 11/06/2024 11:05 INDICATION: Head injury TECHNIQUE: Computed tomography (CT) of the head was performed without intravenous contrast. Sagittal and coronal reconstructions were performed. The mA was adjusted according to patient size. Iterative reconstruction technique was employed. The dose-length product was 681.00 mGy-cm. COMPARISON: head CT dated 06/10/24 FINDINGS: No fracture. No acute intracranial hemorrhage, acute infarction or abnormal extra axial fluid collect ion. Ventricles are normal and symmetric. No mass/mass effect. The orbits, paranasal sinuses and mast oid air cells are normal. IMPRESSION: 1. Normal head CT with no fracture or acute intracranial process. Reviewed, dictated and finalized at location A.
--- OUTSIDE RECORDS SUMMARY | 2024-11-06 12:07 | XMS_ITS ---
Author Organization [facility] Medical [facility] 1 Address [address] [place] [address] Care Team Providers Care Supervisor Grower Name Role Phone Ashwini Enciso DO Primary Care Provider +1- [phone] Active Problems Problem Noted Date Diagnosed Date HTN (hypertension) 11/05/2024 Hyperlipidemia 11/05/2024 Panic anxiety syndrome 11/05/2024 Cecal cancer 12/31/2023 Acute anemia 12/29/2023 Iron deficiency anemia due to chronic blood loss 12/29/2023 Incisional hernia, without obstruction or gangre ne 02/16/2019 Overview (02/16/2019): Added automatically from request for surgery [id number] Renal mass 03/04/2018 Overview (03/04/2018): Added automatically from request for surgery [id number] Ganglion cyst 08/07/2015 S/P MARCIAL (total abdominal hysterectomy) 3 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 Past Treatment and Therapy Plans No past plan information found. Lifetime Dose Tracking * Chemical Lifetime Dose Automatic Entry Manual Entr y Fluoro Time 12 minutes 12 minutes 0 minutes Air kerma at the reference point (Ka,r) 459 mGy 4 59 mGy 0 mGy DLP 4,201 mGycm 4,201 mGycm 0 mGycm
--- OUTSIDE RECORDS SUMMARY | 2024-11-06 12:07 | XMS_ITS | Referral Summary ---
Author Organization [facility] Medical [facility] 1 Address [address] [place] [address] Care Team Providers Care Trolley Worker Name Role Phone Ashwini Enciso DO Primary Care Provider +1- [phone] Encounters Date Type Department Care Team Description 11/05/2024 8:00 AM CDT Office Visit [facility] at [address] [address] Gabriela Rosario NP Left hand pain (Primary Dx); Acute pain of left shoulder; Fall, initial encounter from Last 3 Months Allergies Active Allergy Reactions Criticality Noted Date Comments Cat Hair Std Allergenic Ext Other (See comments) Low 07/28/2012 Hay Fever Cephalexin Other (See comments),Rash Medium 10/29/2007 Red serum syndrome Ciprofloxacin Rash Medium 08/29/2012 And burning Cortisone Hives,Rash Medium 07/28/2012 Cortisone injection Hydrocortisone Urticaria Medium 10/29/2007 Injection only Docetaxel Nausea And Vomiting,Other (See comments),Shortness of breath High 10/13/2012 Facial flushing Hydromorphone (Bulk) Hallucinations Medium 01/17/2024 Mold Extracts Other (See comments) Low 07/28/2012 Hay fever Morphine Other (See comments) 01/17/2024 Makes me vomit Penicillins Rash Medium 07/28/2012 Prochlorperazine Anaphylaxis High 10/29/2007 Medications cholecalcifero l (VITAMIN D-3) 2,000 unit capsuleIndicat ions:Vitamin D Deficiency Take 1 capsule by mouth every morning. 6 Active coenzyme Q10 100 mg capsule Take 200 mg by mouth every morning. Active sertraline (ZOLOFT) 100 mg tabletIndicati ons:Generalize d Anxiety Disorder Take 100 mg by mouth nightly. Active metoprolol (LOPRESSOR) 50 mg tabletIndicati ons:hypertensi on Take 50 mg by mouth 2 (two) times a day. Active calcium carbonate (CALCIUM 600 ORAL)Indicatio ns:SUPPLEMENT Take 1 tablet by mouth nightly. Active estradiol (ESTRACE) 0.01 % (0.1 mg/gram) vaginal cream Insert 2 g into the vagina as needed Active lisinopril-hyd roCHLOROthiazi de (ZESTORETIC) 10-12.5 mg per tablet Take by mouth 8 Active atorvastatin (LIPITOR) 20 mg tablet TK 1 T PO D 0 Active clonazePAM (KlonoPIN) 0.5 mg tablet 5 Active polyethylene glycol-electro lytes 420 gram solution Take 4,000 mL by mouth 5 Active omeprazole (PriLOSEC) 20 mg capsule Take 1 capsule (20 mg total) by mouth daily 5 Active ALPRAZolam (XANAX) 1 mg tabletIndicati ons:anxiety Take 1 mg by mouth daily as needed. 3 8 11/06/19 25 Discontinued clonazePAM (KlonoPIN) 1 mg tabletIndicati ons:Panic Disorder,Also takes 0.5mg nightly Take 1 mg by mouth 2 (two) times a day 1mg in am and 0.5 nightly 11/06/19 25 Discontinued famotidine (PEPCID) 20 mg tabletIndicati ons:gastroesop hageal reflux disease Take 20 mg by mouth every morning 3 11/06/19 25 Discontinued Active Problems Problem Noted Date Diagnosed Date HTN (hypertension) 11/05/2024 Hyperlipidemia 11/05/2024 Panic anxiety syndrome 11/05/2024 Cecal cancer 12/31/2023 Acute anemia 12/29/2023 Iron deficiency anemia due to chronic blood loss 12/29/2023 Incisional hernia, without obstruction or gangre ne 02/16/2019 Overview (02/16/2019): Added automatically from request for surgery [id number] Renal mass 03/04/2018 Overview (03/04/2018): Added automatically from request for surgery [id number] Ganglion cyst 08/07/2015 S/P MARCIAL (total abdominal hysterectomy) 3 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 Breast cancer 08/01/2012 Overview (11/05/2024): Stage: T2 N0 Date of diagnosis: 07/28/12 Diagnosis: right 3.2 cm IDC 0/1 LN ER 5/8 NE - HER2/deo 6.5 Ki67 67% Surgeon: Graham/Hussein [...] on file Legal Sex Female 6:25 AM PET 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 Gender Identity Not on file Sexual Orientation Not on file Last Filed Vital Signs Vital Sign Reading Time Taken Comments Blood Pressure 125/78 11/05/2024 8:15 AM CDT Pulse 80 11/05/2024 8:15 AM CDT Temperature 37 C (98.6 F) 11/05/2024 8:15 AM CDT Respiratory Rate 21 11/05/2024 8:15 AM CDT Oxygen Saturation 98% 11/05/2024 8:15 AM CDT Inhaled Oxygen Concentration - - Weight 76.2 kg (168 lb) 11/05/2024 8:15 AM CDT Height 172.7 cm (5' 8) 11/05/2024 8:15 AM CDT Body Mass Index 25.54 11/05/2024 8:15 AM CDT Plan of Treatment Not on file Medical Devices Implanted Type Area Regional Director Device Identifier Shelf Expiration Date Model / Serial / Lot Davol Inc/C R Bard [id number] Bard Marlex [id number] Monofilament Gold Standard Flat Sheet - [id number] Implanted:Qty: 1 on 05/29/2019 by Robb Maier MD at [facility] Mesh N/A: Abdomen [employer]ol Inc/C R Bard [id number] 04/27/2022 [id number] / / [id number] [employer] [id number] Carter 6mm 14cm 7.4 Loop Catheter End Hole Arterial Venous Coil - [id number] Implanted:Qty: 1 on 03/10/2018 at [facility] [employer] 08/28/2021 [id number] / / [id number] [employer] [id number] Carter 6mm 14cm 7.4 Loop Catheter End Hole Arterial Venous Coil - [id number] Implanted:Qty: 1 on 03/10/2018 at [facility] [employer] 08/28/2021 [id number] / / [id number] [employer] [id number] Carter 6mm 14cm 7.4 Loop Catheter End Hole Arterial Venous Coil - [id number] Implanted:Qty: 1 on 03/10/2018 at [facility] [employer] 08/28/2021 [id number] / / [id number] [employer] [id number] Carter 6mm 14cm 7.4 Loop Catheter End Hole Arterial Venous Coil - [id number] Implanted:Qty: 1 on 03/10/2018 at [facility] [employer] 07/28/2022 [id number] / / [id number] [employer] [id number] Carter 6mm 14cm 7.4 Loop Catheter End Hole Arterial Venous Coil - [id number] Implanted:Qty: 1 on 03/10/2018 at [facility] [employer] 06/05/2020 [id number] / / [id number] [employer] [id number] Carter 6mm 14cm 7.4 Loop Catheter End Hole Arterial Venous Coil - [id number] Implanted:Qty: 1 on 03/10/2018 at [facility] [employer] 08/13/2021 [id number] / / [id number] [employer] [id number] Angio-Seal Vip Bondek-Plus 6fr .035in 70cm Hemostatic Latex Free - [id number] Implanted:Qty: 1 on 03/10/2018 at [facility] [employer] 10/28/2018 [id number] / / [id number] Insurance CHOICE PLUS CHOICE PLUS CHOICE PLUS BL CHOICE PRF PPO [place] Advance Directives For more information, please contact: [phone] Documents on File Type Date Recorded Patient Commercial Collections Driver Expl anation ADVANCE DIRECTIVE 05/29/2019 11:54 AM Tawny ing Will * Full Code (Latest Code Status on File) Date Activated Date Inactivated Comments 05/29/2019 8:26 PM 06/01/2019 5:22 PM * Full Code Date Activated Date Inactivated Comments 03/10/2018 7:38 AM 03/14/2018 1:48 PM Care Teams Trolley Worker Relationship Specialty Start Date End Date Ashwini Enciso DO PCP - General Family Medicine 09/22/19
--- OUTSIDE RECORDS SUMMARY | 2024-11-06 12:07 | XMS_ITS ---
Author Organization [facility] Address [address] [place] [address] Phone Care Team Providers Care Pin Cleaner Name Role Phone Ashwini Enciso DO Primary Care Provider +1- [phone] Active Problems Patient Care Coordination No te Formatting of this note migh t be different from the original. Primary Care: Sg Mendoza MD Referring Provider: Sg Mendoza MD [address] [address] Other: Dr Jaylene Stevenson Problem Noted Date [...] 3.2 cm IDC 0/1 LN ER 5/8 NM - HER2/deo 6.5 Ki67 67% Surgeon: Graham/Hussein [...] year Assessment & Plan (07/19/2013 9:39 AM BUILDING INSULATION SUPERVISOR): Herceptin until August 30 On AI ECHO Jul 61% mammo Left Jul 27 Assessment & Plan (06/07/2013 2:18 PM BUILDING INSULATION SUPERVISOR): Herceptin u8ntil Apirl On AI - belly fat; hair not growing ECHO due mammo left October Seroma right breast Assessment & Plan (04/26/2013 10:14 AM BUILDING INSULATION SUPERVISOR): hercetpin until August On AI ECHO [...]
--- OUTSIDE RECORDS SUMMARY | 2024-11-06 12:07 | XMS_ITS | Continuity of Care Document ---
Author Organization [facility] Address [address] [place] [address] Phone Care Team Providers Care Group Product Manager Name Role Phone Myers OD, Farzad Unavailable Unavailable Advance Directives Directive Yes / No Effective Date File Name No Information Encounters Encounter Description Practice Location Reason(s) For Visit Diagnoses Date Provider Providers Copied on Encounter [facility], [address], [place], [place], [id number], [place] tel:[phone] [facility] No Information Sep-0 5-200 6 Myers OD Farzad. [address] , [address], [place], [address], [place]. tel:[phone] Family History Family Member Type Diagnosis Age [...]
--- OUTSIDE RECORDS SUMMARY | 2024-11-06 12:07 | XMS_ITS | Clinical Summary ---
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 Breast cancer 08/01/2012 Overview (11/05/2024): Stage: T2 N0 Date of diagnosis: 07/28/12 Diagnosis: 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.5 Ki67 67% Surgeon: Graham/Hussein Surgery: 08/10/12 right Tm/SLN and TE Medical Oncologist: Stefanlin --> Gaurav Chemotherapy: TCH x 3 then Carbo HERCEPTIN UNTIL August 2013 Radiation: none Hormonal therapy: Aromasin switched 01/2015 (changed from letrozole 01/25/13) Acute postoperative abdominal pain Hx of total cystectomy Encounters Date Type Department Care Team Description 11/05/2024 8:00 AM CDT Office Visit [facility] Medical [facility] Care at [address] [address] Gabriela Rosario NP Left hand pain (Primary Dx); Acute pain of left shoulder; Fall, initial encounter from Last 3 Months Immunizations Immunization Administration Dates Next Due Influenza, Unspecified 02/14/2019 Surgical History Surgery Date Site/Laterality Comments HYSTERECTOMY SECTION OOPHERECTOMY 05/31/2007 - 05/30/2008 MASTECTOMY Right BREAST RECONSTRUCTION SHOULDER SURGERY Left for shoulder adhesiolysis PORTACATH PLACEMENT PORT REMOVAL 09/28/2013 - 10/28/2013 COLONOSCOPY EMBOLIZATION ORGAN ISCHEMIA OR INFARCTION 03/10/2018 N/A NEPHRECTOMY RADICAL 03/10/2018 Left TONSILLECTOMY 05/31/1963 - 05/30/1964 INCISIONAL HERNIA REPAIR 05/29/2019 Robotic repair BREAST BIOPSY 07/28/2012 Right Medical History Medical History Date Comments Hypertension [...] on file 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 Gender Identity Not on file Sexual Orientation [...] 11/05/2024 8:15 AM CDT Plan of Treatment Health Maintenance Due Date Last Done Comments Colon Cancer Screening-Colonoscopy 1960 Depression Screening 1958 Fall Risk Assessment 1960 Hepatitis C Screening 1960 DTaP/Tdap/Td Vaccine (1 - Tdap) 1969 Hepatitis B Screening 1976 Pneumococcal vaccine 65+ (1 of 1 - PCV) 2008 Zoster Vaccine (1 of 2) 2008 Osteoporosis Screening-Bone Density Scan 08/26/2022 08/26/2020, 08/26/2020, 02/12/2016, Additional history exists Breast Cancer Screening-Mammogram 02/03/2023 022, 01/20/2021 Well Visit 65+ 2023 Influenza Vaccine (Season Ended) 2025 02/28/2019, 02/14/2019, 04/18/2018 Medical Devices Implanted Type Area Oil [employer] Equipment Mechanic Supervisor Device Identifier Shelf Expiration Date Model / Serial / Lot [employer]/C R Bard [id number] Bard Marlex [id number] Monofilament Gold Standard Flat Sheet - [id number] Implanted:Qty: 1 on 05/29/2019 by Robb Maier MD at [facility] Mesh N/A: Abdomen [employer]/C R Bard [id number] 04/27/2022 [id number] / / [id number] [id number] Carter 6mm 14cm 7.4 Loop Catheter End Hole Arterial Venous Coil - [id number] Implanted:Qty: 1 on 03/10/2018 at [facility] [employer] 08/28/2021 [id number] / / [id number] [employer] [id number] Carter 6mm 14cm 7.4 Loop Catheter End Hole Arterial Venous Coil - [id number] Implanted:Qty: 1 on 03/10/2018 at [facility] [employer] 08/28/2021 [id number] / / [id number] [employer] [id number] Carter 6mm 14cm 7.4 Loop Catheter End Hole Arterial Venous Coil - [id number] Implanted:Qty: 1 on 03/10/2018 at [facility] [employer] 08/28/2021 [id number] / / [id number] [employer] [id number] Carter 6mm 14cm 7.4 Loop Catheter End Hole Arterial Venous Coil - [id number] Implanted:Qty: 1 on 03/10/2018 at [facility] [employer] 07/28/2022 [id number] / / [id number] [employer] [id number] Carter 6mm 14cm 7.4 Loop Catheter End Hole Arterial Venous Coil - [id number] Implanted:Qty: 1 on 03/10/2018 at [facility] [employer] 06/05/2020 [id number] / / [id number] [employer] [id number] Carter 6mm 14cm 7.4 Loop Catheter End Hole Arterial Venous Coil - [id number] Implanted:Qty: 1 on 03/10/2018 at [facility] [employer] 08/13/2021 [id number] / / [id number] Daig [employer] [id number] Angio-Seal Vip Bondek-Plus 6fr .035in 70cm Hemostatic Latex Free - [id number] Implanted:Qty: 1 on 03/10/2018 at [facility] [employer] 10/28/2018 [id number] / / [id number] Insurance CHOICE PLUS CHOICE PLUS CHOICE PLUS BL CHOICE PRF PPO [place] Advance Directives For more information, please contact: [phone] Documents on File Type Date Recorded Patient Over Hauler Helper Expl anation ADVANCE DIRECTIVE 05/29/2019 11:54 AM Tawny ing Will * Full Code (Latest Code Status on File) Date Activated Date Inactivated Comments 05/29/2019 8:26 PM 06/01/2019 5:22 PM * Full Code Date Activated Date Inactivated Comments 03/10/2018 7:38 AM 03/14/2018 1:48 PM Care Teams Sample Finisher Relationship Specialty Start Date End Date Ashwini Enciso DO PCP - General Family Medicine 09/22/19
--- OUTSIDE RECORDS SUMMARY | 2024-11-06 12:07 | XMS_ITS | Clinical Summary ---
Author Organization [facility] Address [address] [place] [address] Phone Care Team Providers Care In Store Demonstrator Name Role Phone ReinaldoberhaneAshwini loving Primary Care Provider [phone] Allergies Active Allergy Reactions Criticality Noted Date [...] daily. 180 Tablet 1 04/07/2024 9:53 AM CANE PACKER 4 Active atorvastatin (LIPITOR) 20 mg tablet Take 1 Tablet (20 mg) by mouth daily. 90 Tablet 1 04/19/2024 9:35 AM CANE PACKER 4 Active VITAMIN B COMPLEX ORAL Take by mouth. Ac tive ALPRAZolam (XANAX) 1 mg tablet Take 1 Tablet (1 mg) by mouth 1 time daily as needed. 30 Tablet 5 07/07/2024 3:09 PM CANE PACKER 5 Active PEG-Electrolyt e Soln (NULYTELY) 420 [...] Tablet 10/07/2024 3:43 PM CDT 5 Active atorvastatin (LIPITOR) 20 mg tablet TAKE 1 TABLET BY MOUTH DAILY 90 Tablet 1 10/24/2024 1:11 PM CDT 5 Active HYDROcodone-ac etaminophen (NORCO) 5-325 mg tablet Take 1 Tablet by mouth every 8 hours as needed for pain. Max Daily Amount: 3 Tablets 14 Tablet 5 Active Active Problems Patient Care Coordination No te Formatting of this note migh t be different from the original. Primary Care: Sg Mendoza MD Referring Provider: Sg Mendoza MD [address] [place] [address] Other: Dr Jaylene Stevenson Problem Noted Date [...] 3.2 cm IDC 0/1 LN ER 5/8 AK - HER2/deo 6.5 Ki67 67% Surgeon: Graham/Hussein [...] year Assessment & Plan (07/19/2013 9:39 AM CANE PACKER): Herceptin until August 30 On AI ECHO b 61% mammo Left Jul 27 Assessment & Plan (06/07/2013 2:18 PM CANE PACKER): Herceptin u8ntil Apirl On AI - belly fat; hair not growing ECHO due mammo left October Seroma right breast Assessment & Plan (04/26/2013 10:14 AM CANE PACKER): hercetpin until August On AI ECHO 65% [...] ROV cycle 2 PLAN - herceptin tomorrow [facility] Assessment & Plan (08/24/2012 2:26 PM CDT): IOV abn mammo cancer throast 10 years ago TCH x 6 Panic attacks, benadryl, compazine allergy ROV chemo HTN (hypertension) Hyperlipidemia Panic anxiety syndrome Encounters Date Type Department Care Team Description 11/03/2024 12:30 PM CDT Office Visit [facility] Surgical Spec [place] [address] [facility] [address] [place] [address] Oma Patten MD History of colon cancer (Primary Dx) 11/01/2024 9:40 AM CDT - 11/01/2024 11:59 PM CDT Hospital Encounter [facility] Medical [place] [address] [facility] [address] [place] [address] Nses Guzman MD Discharge Disposition: Home or Self Care 11/01/2024 Chart Note [facility] [address] [place] [address] Lesley Perry, NATHALIE Breast Problem (Left breast calcifications) 10/31/2024 External Device Data STL ABSTRACTION Provider, Abstract 10/25/2024 1:00 PM CDT Office Visit [facility] Oncology and Hematology [facility] [address] [facility] [address] [place] [address] Ness Guzman MD 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); Abnormal mammogram; Hormone receptor positive malignant neoplasm of right breast ([facility]/HCC) 10/25/2024 11:45 AM CDT - 10/25/2024 11:59 PM CDT Hospital Encounter [facility] Center 2nd Fl [address] [place] [address] Ness Guzman MD Discharge Disposition: Home or Self Care 10/25/2024 Orders Only [facility] Oncology [facility] [address] [facility] [address] [place] [address] Ness Guzman MD 10/24/2024 External Device Data STL ABSTRACTION Provider, Abstract 10/19/2024 10:00 AM CDT - 10/19/2024 11:59 PM CDT Hospital Encounter [facility] [place] [address] [place] [address] [facility], External Provider Discharge Disposition: Home or Self Care 10/19/2024 External Device Data STL ABSTRACTION Provider, Abstract 10/18/2024 External Device Data STL ABSTRACTION Provider, Abstract 10/17/2024 11:43 AM CDT - 10/17/2024 11:59 PM CDT Hospital Encounter [facility] Imaging Services [address] [place] [address] Ness Guzman MD Discharge Disposition: Home or Self Care 10/17/2024 [...] Data STL ABSTRACTION Provider, Abstract 08/08/2024 Telephone [facility] Surgical Spec [place] [address] [place] [address] Oma Patten MD Colonoscopy 08/08/2024 External Device [...] on file Legal Sex Female 8:11 AM CANE PACKER Gender Identity Not on file Sexual Orientation Not on file 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 Not on file Not on file Not on file Last Filed Vital Signs Vital Sign Reading Time Taken Comments Blood Pressure 112/72 11/03/2024 12:31 PM CDT Pulse 71 10/25/2024 12:41 PM CDT Temperature 36.7 C (98.1 F) 10/25/2024 12:41 PM CDT Respiratory Rate 16 07/13/2024 11:05 AM CANE PACKER Oxygen Saturation 97% 10/25/2024 12:41 PM CDT Inhaled Oxygen Concentration - - Weight 81 kg (178 lb 9.6 oz) 11/03/2024 12:31 PM CDT Height 167.6 cm (5' 6) 11/03/2024 12:31 PM CDT Body Mass Index 28.83 11/03/2024 12:31 PM CDT Plan of Treatment Upcoming Encounters Date Type Department Care Team (Latest Contact Info) Description 11/14/2024 1:[address] [facility] [place] [address] [facility] [address] [place] [address] Ness Guzman MD [address] [facility] [address] [place] [address] 01/03/2025 7:00 AM CDT Hospital Encounter [facility] GI Lab S [facility] [address] [place] [address] Oma Patten MD [address] [facility] [address] [place] [address] Personal history of colon cancer 01/03/2025 7:00 AM CDT - 01/03/2025 7:45 AM CDT Surgery [facility] GI Lab S [facility] [address] [place] [address] Oma Patten MD [address] [facility] [address] [place] [address] COLONOSCOPY 01/18/2025 12:30 PM CDT Appointment [facility] Imaging Services [facility] [address] [place] [address] Ness Guzman MD [address] [facility] [address] [place] [address] 02/05/2025 1:30 PM CDT Office Visit [facility] Surgical Spec [place] [address] [facility] [address] [place] [address] Oma Patten MD [address] [facility] [address] [place] [address] Scheduled Procedures Name Priority Associated Diagnoses Date/Ti me COLONOSCOPY Personal history of colon cancer 01/03/2025 7:00 AM CDT Health Maintenance Due Date Last Done Comments Pre-Diabetes and Diabetes Screening 1960 DTAP/TDAP/TD VACCINES (1 - Tdap) 1977 PNEUMOCOCCAL VACCINE 50+ YEA RS (1 of 1 - PCV) 2008 ZOSTER VACCINE (1 of 2) 2008 INFLUENZA VACCINE (#1) 2023 02/28/2020 OSTEOPOROSIS SCREENING 08/26/2025 1, 02/12/2016, 07/02/2012 BREAST CANCER SCREENING 11/01/2025 11/02/19 25, 02/03/2022, 01/20/2021, Additional history exists RSV VACCINE (60+ or ) (1 - 1-dose 75+ series) 2033 COLORECTAL SCREENING Discontinued 12/30/2023, 12/30/19 24 Colorectal Cancer Screening Discontinued FIT-DNA Q 3 years Discontinued FIT/FOBT Q 1 year Discontinued Flex Sig/CT Colonography Q 5 years Discontinued Medical Devices Implanted Type Area General Manager [employer] Device Identifier Shelf Expiration Date Model / Serial / Lot Clip Hemolok Lrg [id number] - [facility] [place] [id number] Implanted:Qty : 1 on 01/18/2024 by Oma Patten MD at [facility] Clip N/A: Abdomen TELEFLEX- WECK CLOSURE SYS 05/10/2027 [id number] / / [id number] Clip Hemolok Lrg [id number] - Csc - [id number] Implanted:Qty : 1 on 01/18/2024 by Oma Patten MD at [facility] Clip N/A: Abdomen TELEFLEX- WECK CLOSURE SYS 05/06/2028 [id number] / / [id number] Mammary Silicone Gel 421ml [id number] - [id number] Implanted:Qty : 1 on 09/01/2013 by Bon Savage MD at [facility] Mammary Right: Breast ALLERGAN- MEDICAL 07/28/2018 [id number] / [id number] / Port Powerport Clearvue 8fr Mri [id number] - [id number] Implanted:Qty : 1 on 02/10/2024 by Oma Patten MD at [facility] Port N/A: Chest BARD AARON VASC 06/30/2025 [id number] / / [id number] Explanted Type Area General Manager [employer] Device Identifier Shelf Expiration Date Model / Serial / Lot Db2 Developer Tissue Mammary 500ml [id number]-13 - [id number] Implanted:Qty : 1 on 08/10/2012 by Bon Savage MD at [facility] Explanted:Qty : 1 on 09/01/2013 by Bon Savage MD at [facility] Mammary Right: Breast ALLERGAN- MEDICAL 04/12/2016 [id number] / [id number] / [id number] Description:Filled with 180 ml saline Port Pwrprt Slim Chrnflx Cath 6fr [id number] - [id number] Implanted:Qty : 1 on 08/26/2012 by Ellyn Rod MD at [facility] Explanted:Qty : 1 on 09/01/2013 by Bon Savage MD at [facility] Port Left: Chest 03/28/2014 [id number] / [id number] / [id number] Procedures Procedure Name Priority Date/Time Associated Diagnosis Comments MAMMO DIAG UNI LEFT 3D JESSICA W OR WO CAD Stat 11/01/2024 10:40 AM CDT Cecal cancer (CMS/HCC) Abnormal mammogram Hormone receptor positive malignant neoplasm of right breast (CMS/HCC) COMPREHENSIVE METABOLIC PANEL Stat 10/25/2024 1:27 PM CDT Cecal cancer (CMS/HCC) Mouth sores Encounter for antineoplastic chemotherapy CBC WITH DIFFERENTIAL Stat 10/25/2024 1:27 PM CDT Cecal cancer (CMS/HCC) Mouth sores Encounter for antineoplastic chemotherapy CEA Stat 10/25/2024 1:27 PM CDT Cecal cancer (CMS/HCC) Mouth sores Encounter for antineoplastic chemotherapy MAMMO PRIOR STUDY Routine 10/19/2024 10: 00 AM CDT Follow-up examination CT CHEST ABDOMEN PELVIS W CONT Routine 10/17/2024 12:25 PM CDT Cecal cancer (CMS/HCC) Mouth sores Encounter for antineoplastic chemotherapy POC CREATININE Routine 10/17/2024 12:12 PM CDT COLONOSCOPY REPORT 12/30/2023 11 :20 AM CDT XR DEXA BONE DENSITY AXIAL 1 OR MORE SITES Routine 08/26/2020 8:39 AM CDT Personal history of malignant neoplasm of breast History of kidney cancer Osteoporosis screening Post-menopausal from Last 3 Months or Most Recently Relevant to Health Maintenance Results * (ABNORMAL) MAMMO 3D JESSICA DIAGNOSTIC UNI LT W OR WO CAD (11/01/2024 10:40 AM CDT) Anatomical Region Laterality Modality Breast Left Mammography 11/01/2024 10:4 0 AM CDT Impressions 11/01/2024 11:03 AM CDT IMPRESSION: New grouped microcalcifications in the central inferior left breast RECOMMENDATIONS: Stereotactic biopsy left breast DICTATION LOCATION: [facility] Narrative 11/01/2024 11:03 AM CDT EXAM: LEFT BREAST FULL-FIELD DIGITAL DIAGNOSTIC MAMMOGRAM WITH CAD WITH 3D TOMOSYNTHESIS DATE: 11/01/2024 10:40 AM HISTORY: Recent abnormal screening mammogram. TECHNIQUE: Spot tomographic and lateral imaging left breast. Magnification views left breast COMPARISON: 2024, 2022, 2021, 2020 BREAST COMPOSITION: The breasts are heterogeneously dense, which may obscure small masses. FINDINGS: The asymmetry. Of concern on the screening mammogram. Has similar appearance to previous mammograms with additional imaging. Coarse calcifications in the lateral breast likely represent a degenerating fibroadenoma. A second group of microcalcifications seen more centrally and inferiorly in the breast in the posterior third best seen on the MLO view are indeterminate. These were not present on previous mammograms. OVERALL FINAL ASSESSMENT: BI-RADS CATEGORY 4: Suspicious Findings Ness Guzman MD MAMMO ORDERABLES Final Result * CBC WITH DIFFERENTIAL (10/25/2024 1:27 PM CDT) WBC 8.3 4.0 - 9.8 K/uL 10/25/2024 1:55 PM CDT [employer] [facility] - [facility] RBC 4.18 3.90 - 4.90 M/uL 10/25/2024 1:55 PM CDT [employer] [facility] - [facility] HEMOGLOBIN 12.7 11.8 - 14.8 g/dL 10/25/2024 1:55 PM CDT [employer] [facility] - [facility] HEMATOCRIT 38.5 35.5 - 44.0 % 10/25/2024 1:55 PM CDT [employer] [facility] - [facility] MCV 92.1 82.0 - 99.0 fL 10/25/2024 1:55 PM CDT [employer] [facility] - [facility] MCH 30.4 27.2 - 32.6 pg 10/25/2024 1:55 PM CDT [employer] [facility] - [facility] MCHC 33.0 31.5 - 35.5 g/dL 10/25/2024 1:55 PM CDT [employer] [facility] - [facility] RDW 13.2 11.5 - 14.5 % 10/25/2024 1:55 PM CDT [facility] RDW-STDEV 44.9 37.1 - 48.7 fL 10/25/2024 1:55 PM CDT [employer] [facility] - [facility] PLATELETS 198 140 - 350 K/uL 10/25/2024 1:55 PM CDT [employer] [facility] - [facility] MPV 10.2 9.3 - 12.4 fL 10/25/2024 1:55 PM CDT [employer] [facility] - [facility] NEUTROPHILS 51 % 10/25/2024 1:55 PM CDT [facility] - . [facility] LYMPHOCYTES 33 % 10/25/2024 1:55 PM CDT [facility] [place] MONOCYTES 11 % 10/25/2024 1:55 PM CDT [facility] - . [place] EOSINOPHILS 4 % 10/25/2024 1:55 PM CDT [facility] LABORATORY SERVICES - . [place] BASOPHILS 1 % 10/25/2024 1:55 PM CDT [facility] LABORATORY SERVICES - . [facility] IMMATURE GRANULOCYTES 0 % 10/25/2024 1:55 PM CDT [facility]ORY SERVICES - . [place] NEUTROPHIL ABSOLUTE 4.26 1.90 - 7.00 K/uL 10/25/2024 1:55 PM CDT [facility] - . [facility] LYMPHOCYTE ABSOLUTE 2.71 0.70 - 4.50 K/uL 10/25/2024 1:55 PM CDT [facility] LABORATORY SERVICES - . [facility] MONOCYTE ABSOLUTE 0.90 0.10 - 1.30 K/uL 10/25/2024 1:55 PM CDT [facility] LABORATORY SERVICES - . [facility] EOSINOPHIL ABSOLUTE 0.32 0.00 - 0.70 K/uL 10/25/2024 1:55 PM CDT [facility] - [facility] [place] BASOPHILS ABSOLUTE 0.08 0.00 - 0.20 K/uL 10/25/2024 1:55 PM CDT [facility] LABORATORY SERVICES - . [facility] IMMATURE GRANULOCYTES ABSOLUTE 0.03 0.00 - 0.03 K/uL 10/25/2024 1:55 PM CDT [facility]ORATORY [facility] - [facility] Blood Collection / Unknown 10/25/2024 1:27 PM CDT 10/25/2024 1:50 PM CDT us Ness Guzman MD HEMATOLOGY ORDERABLES Final Res ult [facility]ORATORY SERVICES - [facility] CLIA# [id number] [address] [place], [place] [address] * CEA (10/25/2024 1:27 PM CDT) CEA <2.0 See Note: ng/mL [facility] [employer] Comment: Reference Range: Non-Smoker: <2.5 Smoker: <5.0 This test was performed using the Siemens chemiluminescent method. Values obtained from different assay methods cannot be used interchangeably. CEA levels, regardless of value, should not be interpreted as absolute evidence of the presence or absence of disease. Test Performed at: [facility] [id number] [place] [phone] Seymour Snow MD Blood 10/25/2024 1:27 PM CDT 10/25/2024 2:52 PM CDT Ness Guzman MD CHEMISTRY ORDERABLES Final Resu lt [facility] [phone] [address] * (ABNORMAL) COMPREHENSIVE METABOLIC PANEL (10/25/2024 1:27 PM CDT) [facility] SODIUM 131(L) 136 - 145 mmol/L 10/25/2024 2:39 PM CDT [facility] LABORATORY SERVICES [facility] POTASSIUM 4.2 3.5 - 5.0 mmol/L 10/25/2024 2:39 PM CDT [facility] LABORATORY SERVICES [facility] CHLORIDE 95(L) 98 - 107 mmol/L 10/25/2024 2:39 PM CDT [facility] - [facility] CO2 26 22 - 29 mmol/L 10/25/2024 2:39 PM CDT [employer] [facility] - [facility] CALCIUM 9.7 8.6 - 10.2 mg/dL 10/25/2024 2:39 PM CDT [employer] [facility] - [facility] BUN 11 8 - 23 mg/dL 10/25/2024 2:39 PM CDT [employer] [facility] - [facility] CREATININE 0.79 0.51 - 0.95 mg/dL 10/25/2024 2:39 PM CDT [facility] - [facility] GLUCOSE 107(H) 74 - 99 mg/dL 10/25/2024 2:39 PM CDT [employer] [facility] - [facility] [place] TOTAL PROTEIN 7.4 6.7 - 8.6 g/dL 10/25/2024 2:39 PM [facility] ALBUMIN 4.5 3.5 - 5.2 g/dL 10/25/2024 2:39 PM [facility] BILIRUBIN TOTAL 0.5 0.0 - 1.1 mg/dL 10/25/2024 2:39 PM T [facility] ALKALINE PHOSPHATASE 276(H) 35 - 104 U/L 10/25/2024 2:39 PM [facility] AST 81(H) <33 U/L 10/25/2024 2:39 PM [facility] ALT 91(H) <34 U/L 10/25/2024 2:39 PM [facility] GFR >60 >=60 mL/min/1.7 3 sq meter 10/25/2024 2:39 PM [facility] Comment:eGFR calculated with 2020 CKD-EPI equation. Vegetarian diet, extremely high or low muscle mass, and may affect results. Cystatin C with Glomerular Filtration Rate is a suitable alternative for these patients. ANION GAP 10 8 - 16 mmol/L 10/25/2024 2:39 PM T [facility] Blood Collection / Unknown 10/25/2024 1:27 PM CDT 10/25/2024 2:00 PM CDT Narrative [facility] - 10/25/2024 2:39 PM CDT Samples containing indocyanine green cause interferences on Total and/or Direct Bilirubin and must not be measured. us Ness Guzman MD CHEMISTRY ORDERABLES Final Resu lt [facility] CLIA# [id number] [address] [facility] [address] [place] [address] * MAMMO PRIOR STUDY (10/19/2024 10:00 AM CDT) Narrative 11/01/2024 9:58 AM CDT This exam was auto finalized to allow images to be scanned to PACS. External Provider [facility] DIAGNOSTIC IMAGING ORDER NURYS Final Result * CT CHEST ABDOMEN PELVIS W CONT (10/17/2024 12:25 PM CDT) Anatomical Region Laterality Modality Chest Computed Tomogra phy 10/17/2024 12:1 4 PM CDT Impressions 10/17/2024 12:56 PM CDT IMPRESSION: 1. Postoperative changes as above. 2. No evidence of metastatic disease. DICTATION LOCATION: Location [address] [place] [address] Narrative 10/17/2024 12:[address] CHEST, ABDOMEN [...] evidence of metastatic disease. DICTATION LOCATION: Location [address] [place] [address] us Ness Guzman MD CT ORDERABLES Final Result * POC CREATININE (10/17/2024 12:12 PM CDT) CREATININE POC 1.00 0.60 - 1.30 mg/dL 10/17/2024 12:12 PM CDT [facility] GFR POC >60 >=60 mL/min/1.7 3 sq meter 10/17/2024 12:12 PM CDT [facility] Comment:eGFR calculated with 2020 CKD-EPI equation. Vegetarian diet, extremely high or low muscle mass, and may affect results. Cystatin C with Glomerular Filtration Rate is a suitable alternative for these patients. Blood, whole 10/17/2024 12:1 2 PM CDT 10/17/2024 3:05 PM CDT us Ness Guzman MD POINT OF CARE TESTING Final Res ult [facility] CLIA# [id number] [address] [place] [address] * COLONOSCOPY REPORT (12/30/2023 11:20 AM CDT) Narrative Procedure Note Sandi Hernandez MD - 12/30/2023 11:20 AM CDT [facility] Patient Name: Pamela Peralta Procedure Date: [...] of Addenda: [address]; [place] [address] us Sandi Hernandez MD GI PROCEDURE ORDERABLES F inal Result * XR DEXA BONE DENSITY AXIAL 1 OR MORE SITES (08/26/2020 8:39 AM CDT) Anatomical Region Laterality Modality Digital Radiogra phy 08/26/2020 8:39 AM CDT Impressions 08/26/2020 8:46 AM CDT IMPRESSION: This is a summary page. Please refer to the complete detailed report found in the Imaging Section of the [facility] EMR. Osteopenia. Lumbar Spine: T-Score: [...] Dr. Farzad Le MD DICTATION LOCATION: 1 Narrative 08/26/2020 8:46 AM CDT EXAMINATION: BONE DENSITY STUDY (DXA) DATE: 08/26/2020 8:39 AM HISTORY: 60 years Female. Postmenopausal. PROCEDURE: Planar images of the lumbar spine and hip(s) using a [employer] DEXA scanner for bone mineral density determination [...] the lumbar spine and hip(s) using a [employer] DEXA scanner for bone mineral density determination [...] found in the Imaging Section of the [facility] EMR. Osteopenia. Lumbar Spine: T-Score: [...] Dr. Farzad Le MD [facility] DI[facility]ING ORDERABLES Final Result from Last 3 Months or Most Recently Relevant to Health Maintenance Insurance RX [employer] Commercial RX [employer] Commercial RX GARC[employer]A PLANS (INTERNAL) [facility] Plans MEDICARE PART A HOSPITAL ONLY BCBS OUT OF STATE Advance Directives For more information, please contact: [phone] * Full Code (Latest Code Status on [...] 2:53 AM 12/31/2023 7:55 PM Care Teams In Store Demonstrator Relationship Specialty Start Date End Date Ashwini Enciso DO [address] [place] [phone] PCP - General Family Practice 01/06/21
--- OUTSIDE RECORDS SUMMARY | 2024-11-06 12:08 | XMS_ITS | Encounter Summary ---
Author Organization [facility] Address [address] [place] [address] Care Team Providers Care Company Doctor Name Role Phone Reinaldoberhanefabienne Ashwini You Primary Care Provider [phone]- [phone] Reason for Referral * Consultation (Routine) - Pending Review Specialty Diagnoses / Procedures Referred By Kimberley le Referred To Contact Orthopedic Surgery Diagnoses Left hand pain Gabriela Rosario NP [address] [place] [address] Phone: tel: [facility] [address] [place] [address] Phone: tel: fax: Referral ID Status Reason Start Date Expiration Date Visits Requested Visits Authorized [id number] Pending Review Specialty Services Required 11/05/2024 12/05/2025 1 1 Question Answer Please select the performing region: [facility] [[id number]] Please select the performing department: [facility] [[id number]] # of visits: 1 * Diagnostic Imaging (Routine) - Authorized Specialty Diagnoses / Procedures Referred By Contkathy t Referred To Contact Diagnoses Acute pain of left shoulder Procedures XR Shoulder Left 2 or More Views Gabriela Rosario NP [address] [place] [address] Phone: tel: [facility] Referral ID Status Reason Start Date Expiration Date V isits Requested Visits Authorized [id number] Authorized 11/05/2024 12/05/2025 1 1 * Diagnostic Imaging (Routine) - Authorized Specialty Diagnoses / Procedures Referred By Kimberley le Referred To Contact Diagnoses Left hand pain Procedures XR Hand Left 3+ Vw Gabriela Rosario NP [address] [place] [address] [address] [place] [address] Phone: tel: [facility] Referral ID Status Reason Start Date Expiration Date V isits Requested Visits Authorized [id number] Authorized 11/05/2024 12/05/2025 1 1 Reason for Visit * Reason Comments Hand Pain Patient here for c/o left hand pain after fall at 1 am Encounter Details Date Type Department Care Team (Late st Contact Info) Description 11/05/2024 8:00 AM CDT Office Visit [facility] Convenient Care at [address] [address] Gabriela Rosario NP [address] [place] [address] Left hand pain (Primary Dx); Acute pain of left shoulder; Fall, initial encounter Social History Tobacco Use Types Packs/Day Years Used Date Smoking Tobacco: Never Smokeless Tobacco: Never Alcohol Use Standard Drinks/Week Comments Yes 0 (1 standard drink = 0.6 oz pur e alcohol) rare/social Comments No Sex and Gender Information Value Date Recorded Sex Assigned at Not on file 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 Gender Identity Not on file Sexual Orientation Not on file documented as of this encounter Last Filed Vital Signs Vital Sign Reading [...] Mass Index 25.54 11/05/2024 8:15 AM CDT documented in this encounter Patient Instructions * Patient Instructions* Gabriela Rosario NP - 11/05/2024 8:00 AM CDT --Referral placed to orthopedics --Placed patient in TKO brace --May take tylenol or ibuprofen for pain, use as directed --Ice to injured site to help reduce swelling and pain --Elevated on pillows at or above the level of the heart --Monitor symptoms and if they worsen follow up with primary doctor, orthopedics, or in the ER if needed. * Attachments The following attachments cannot be sent through Care Everywhere. * Fall Prevention (Store Receiving Clerk) (Qatari) documented in this encounter Progress Notes * Gabriela Rosario NP - 11/05/2024 8:00 AM CDT Images from the original note were not included. Subjective/Objective Patient ID: Pamela Peralta is a 64 y.o. female. Chief Complaint Hand Pain (Patient here for c/o left hand pain after fall at 1 am) Patient presents to the clinic with reports of left hand and left shoulder pain after a fall that occurred at 1:00 a.m. today. Patient denies loss of sensation, numbness, and open/broken skin. Patient is right-hand dominant. Patient has not taken anything [id number] but has applied ice to herinjuries. Review of Systems Constitutional: Negative for chills, fatigue and fever. Respiratory: Negative for cough. Cardiovascular: Negative for chest pain. Musculoskeletal: Positive for arthralgias. Neurological: Negative for weakness and headaches. Physical Exam Vitals reviewed. Constitutional: General: She is not in acute distress. Appearance: Normal appearance. She is not ill-appearing. HENT: Head: Normocephalic. Mouth/Throat: Lips: [place]. Cardiovascular: Rate and Rhythm: Normal rate. Pulmonary: Effort: Pulmonary effort is normal. Breath sounds: Normal breath sounds. Musculoskeletal: Left shoulder: Tenderness (with bruising) present. Left hand: Swelling (and bruising) and tenderness present. Skin: General: Skin is warm. Neurological: Mental Status: She is alert and oriented to person, place, and time. Psychiatric: Mood and Affect: Mood normal. Vitals: 11/05/24 0815 BP: 125/78 Pulse: 80 Resp: 21 Temp: 37 ??C (98.6 ??F) SpO2: 98% Weight: 76.2 kg (168 lb) Height: 172.7 cm (5' 8) Assessment/Plan --Referral placed to orthopedics --Placed patient in TKO brace --May take tylenol or ibuprofen for pain, use as directed --Ice to injured site to help reduce swelling and pain --Elevated on pillows at or above the level of the heart --Monitor symptoms and if they worsen follow up with primary doctor, orthopedics, or in the ER if needed. Diagnoses and all orders for this visit: Left hand pain (Primary) - XR Hand Left 3+ Vw; Future - Ambulatory referral to Orthopedic Hand; Future Acute pain of left shoulder - XR Shoulder Left 2 or More Views; Future Fall, initial encounter Patient Education: Disposition Treatment plan including expectations, follow up, and return precautions discussed with patient/parent, verbalizes understanding. Medication dosage, use, and potential adverse reactions discussed with patient/parent. Advised to follow up with PCP if symptoms do not resolve as expected or sooner if condition worsens. Signs/symptoms warranting ER evaluation reviewed. Patient and/or guardian was given an opportunity to ask questions, questions answered. Gabriela Rosario NP 11/05/24 8:33 AM This office note has been partially dictated using CURRENT*[employer] software, and as a result portions of the record may have been created with this software. Occasional wrong-word or 'abpah-j-qxzu' substitutions may have occurred due to the inherent limitations of voice recognition software. Read the chartcarefully and recognize, using context, where substitutions have occurred. documented in this encounter Plan of Treatment Scheduled Orders Name Type Priority Associated Diagnoses Orde r Schedule XR Hand Left 3+ Vw Imaging Schedule JAZ , Read JAZ (Appt Today, Awaiting Results) Left hand pain Expected: 11/05/2024, Expires: 11/05/2025 XR Shoulder Left 2 or More Views Imaging Schedule JAZ, Read JAZ (Appt Today, Awaiting Results) Acute pain of left shoulder Expected: 11/05/2024, Expires: 11/05/2025 Scheduled Referrals Name Type Priority Associated Diagnoses Order Schedule Ambulatory referral to Orthopedic Hand Outpatient Referral Routine Left hand pain 1 Occurrences starting 11/05/2024 until 11/05/2025 documented as of this encounter Visit Diagnoses Diagnosis Left hand pain- Primary Pain in soft tissues of limb Acute pain of left shoulder Fall, initial encounter documented in this encounter Discontinued Medications Medication Sig Discontinue Reason Start Date End Da te ALPRAZolam (XANAX) 1 mg tabletIndications:anxiet y Take 1 mg by mouth daily as needed. 01/24/2018 11/05/2024 clonazePAM (KlonoPIN) 1 mg tabletIndications:Panic Disorder,Also takes 0.5mg nightly Take 1 mg by mouth 2 (two) times a day 1mg in am and 0.5 nightly 11/05/2024 famotidine (PEPCID) 20 mg tabletIndications:gastro esophageal reflux disease Take 20 mg by mouth every morning 08/31/2012 11/05/2024 documented as of this encounter Historical Medications * This list may reflect changes made after this encounter. omeprazole (PriLOSEC) 20 mg capsule Take 1 capsule (20 mg total) by mouth daily 09/12/2024 polyethylene glycol-electrolyt es 420 gram solution Take 4,000 mL by mouth 08/08/2024 clonazePAM (KlonoPIN) 0.5 mg tablet 10/06/2024 added in this encounter Care Teams Company Doctor Relationship Specialty Start Date End Date Ashwini Enciso DO PCP - General Family Medicine 09/22/19 documented as of this encounter
== END 2024-11-06 10:48 | disposition home or self-care (01) ==
PROVIDERS: PCP Family Medicine; Visit Provider Nurse Practitioner
DX: S09.90XA Unspecified injury of head, initial encounter (principal)
CPT/HCPCS: 70450

== ENCOUNTER 2024-11-09 04:51 | Day surgery (SDC) | payer BC, SELFPAY ==
[2024-11-07 13:45] VITALS: BMI 27.6
--- NOTE | 2024-11-07 14:16 | PC.NURSE ---
Addendum entered by Patricia Carrera RN 11/08/24 08:05: CORRECTION:NO FOOD OR DRINK FOR 8HR PRIOR TO SURGERY PER YOUR VERBAL INSTRUCTION Original Note: Report to the Outpatient Waiting Room, entrance under the green pavilion located off [facility], at time _1030 on date _11/09/24 . Planned Procedure Time: _1230 .? Time changes happen often and if your time is changed the preop area will call you the afternoon before. - You and your visitor will be asked to self-screen and do not enter if you have any COVID symptoms. Please call surgeon if you need to reschedule. - A mask is optional within the hospital at this time. Patients may have clear liquids (water, carbonated beverages, clear teas, apple juice) until 3 hours prior to surgery with a maximum of 20 ounces. - No food from midnight until time of surgery and no smoking, or chewing tobacco (or any form of nicotine). No chewing gum, candy or mints. Take only the following medications with a SIP of water on the morning of surgery: ____METOPROLOL, SERTRALINE, ALPRAZOLAM, CLONAZEPAM DO NOT STOP ANY OF YOUR OTHER PRESCRIPTION MEDICATIONS PRIOR TO SURGERY EXCEPT THE FOLLOWING Hold all vitamins and supplements for 3 days per anesthesiologist. Medications to discontinue per physician ___11/07/24 Date to take last dose Please no make-up, nail thai, hairspray, perfume, deodorant, or body powder the day of surgery.? No jewelry (including any body piercings) or valuables the day of surgery, leave them at home.? Please take a shower or bath the night before, or the morning of, surgery with an antibacterial soap.? Wear comfortable, loose fitting clothing.? - Jewelry must be removed prior to entering the operating room.? Rings and piercings that are not removed may be cut off. - The hospital will not accept responsibility for valuables.? - Please leave all valuables, including medications, at home the day of surgery. If you are going home after surgery, a licensed armored car driver must drive you home.? - NO public transportation without another adult if you receive anesthesia. - We recommend that an adult stay with you for 24 hours following discharge. - We also recommend that you do not drive, make important decision, drink alcoholic beverages, or take any drugs that were not prescribed by your health care provider for at least 24 hours after your discharge time. Follow any additional instructions given to you from your surgeon. Telephone instructions given to __TRACEY and asked if any additional questions and then verbalized understanding. Patient advised to call surgeon office or pre surgery nurse liaison [phone] if any additional questions.
--- NOTE | ~2024-11-09 | XR_ITS ---
XR surgery orthopedic Ordering provider: Philipp Powers MD History: . LEFT 3RD DIGIT FIXATION . Comparison: None. FINDINGS/impression: Fluoroscopy time is 11 seconds. Radiation dose is 0.0542 mGy. Status post reduction of a dislocated 3rd finger. Fracture at the base of the middle phalanx anterior ly is noted. Reviewed, dictated and finalized at location A.
--- OUTSIDE RECORDS SUMMARY | 2024-11-09 04:55 | XMS_ITS | Referral Summary ---
Author Organization [facility] Medical [facility] 1 Address [address] [place] [address] Care Team Providers Care Clinical Coordinator Name Role Phone Ashwini Enciso DO Primary Care Provider [phone]- [phone] Encounters Date Type Department Care Team Description 11/06/2024 Telephone [facility] Convenient Care at [address] [address] [place] Media 11/05/2024 8:00 AM CDT Office Visit [facility] Convenient Care at [address] [address] Gabriela Rosario NP Left hand [...] (02/16/2019): Added automatically from request for surgery [id number] Renal mass 03/04/2018 Overview (03/04/2018): Added automatically from request for surgery [id number] Ganglion cyst 08/07/2015 S/P MARCIAL (total abdominal hysterectomy) 3 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 Breast cancer 08/01/2012 Overview (11/05/2024): Stage: T2 N0 Date of diagnosis: 07/28/12 Diagnosis: right 3.2 cm IDC 0/1 LN ER 5/8 NH - HER2/deo 6.5 Ki67 67% Surgeon: Graham/Hussein [...] file 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 Gender Identity Not on file Sexual Orientation [...] on file Medical Devices Implanted Type Area Customer Experience Manager Device Identifier Shelf Expiration Date Model / Serial / Lot [employer]/C R Bard [id number] Bard Marlex 38x96ld Monofilament Gold Standard Flat Sheet - [id number] Implanted:Qty: 1 on 05/29/2019 by Robb Maier MD at [facility] Mesh N/A: Abdomen [employer]/C R Bard [id number] 04/27/2022 [id number] / / [id number] [employer] [id number] Carter 6mm 14cm 7.4 Loop Catheter End Hole Arterial Venous Coil - [id number] Implanted:Qty: 1 on 03/10/2018 at [facility] [employer] 08/28/2021 [id number] / / [id number] [employer] [id number] Catrer 6mm 14cm 7.4 Loop Catheter End Hole Arterial Venous Coil - [id number] Implanted:Qty: 1 on 03/10/2018 at [facility] [employer] 08/28/2021 [id number] / / [id number] [employer] [id number] Carter 6mm 14cm 7.4 Loop Catheter End Hole Arterial Venous Coil - [id number] Implanted:Qty: 1 on 03/10/2018 at [facility] [employer] 08/28/2021 [id number] / / [id number] [employer] [id number] Carter 6mm 14cm 7.4 Loop Catheter End Hole Arterial Venous Coil - [id number] Implanted:Qty: 1 on 03/10/2018 at [facility] [employer] 07/28/2022 [id number] / / [id number] [employer] [id number] Carter 6mm 14cm 7.4 Loop Catheter End Hole Arterial Venous Coil - [id number] Implanted:Qty: 1 on 03/10/2018 at [facility] [employer] 06/05/2020 [id number] / / [id number] [employer] [id number] Carter 6mm 14cm 7.4 Loop Catheter End Hole Arterial Venous Coil - [id number] Implanted:Qty: 1 on 03/10/2018 at [facility] [employer] 08/13/2021 [id number] / / [id number] [employer] [id number] Angio-Seal Vip [employer]-Plus 6fr .035in 70cm Hemostatic Latex Free - [id number] Implanted:Qty: 1 on 03/10/2018 at [facility] [employer] 10/28/2018 [id number] / / [id number] Insurance [facility] Address: [address] [address] [place] [address] [facility] PLUS [facility]PP[facility] Address: [address] [address] [place] [address] [facility] CHO[facility] PLUS [facility] Address: [address] [address] [place] [address] CHOICE [place] Advance Directives For more information, please contact: [phone] Documents on File Type Date Recorded Patient Burling And Joining Supervisor Expl anation ADVANCE DIRECTIVE 05/29/2019 11:54 AM Tawny ing Will * Full Code (Latest Code Status on File) Date Activated Date Inactivated Comments 05/29/2019 8:26 PM 06/01/2019 5:22 PM * Full Code Date Activated Date Inactivated Comments 03/10/2018 7:38 AM 03/14/2018 1:48 PM Care Teams Clinical Coordinator Relationship Specialty Start Date End Date Ashwini Enciso DO PCP - General Family Medicine 09/22/19
--- OUTSIDE RECORDS SUMMARY | 2024-11-09 04:55 | XMS_ITS | Clinical Summary ---
Author Organization [facility] [place] Address [address] [place] [address] Phone Care Team Providers Care Procedures Rn Name Role Phone ReinaldoberhaneAshwini loving Primary Care Provider +1- [phone] Allergies Active Allergy Reactions Criticality Noted Date [...] daily. 180 Tablet 1 04/07/2024 9:53 AM SHADER AND TONER 4 Active atorvastatin (LIPITOR) 20 mg tablet Take 1 Tablet (20 mg) by mouth daily. 90 Tablet 1 04/19/2024 9:35 AM SHADER AND TONER 4 Active VITAMIN B COMPLEX ORAL Take by mouth. Ac tive ALPRAZolam (XANAX) 1 mg tablet Take 1 Tablet (1 mg) by mouth 1 time daily as needed. 30 Tablet 5 07/07/2024 3:09 PM SHADER AND TONER 5 Active PEG-Electrolyt e Soln (NULYTELY) 420 [...] Max Daily Amount: 3 Tablets 14 Tablet 11/06/2024 1:12 PM CDT 5 Active Active Problems Patient Care Coordination No te Formatting of this note migh t be different from the original. Primary Care: Sg Mendoza MD Referring Provider: Sg Mendoza MD [address] [place] [address] Other: Dr Jaylene Stevenson Problem Noted Date Diagnosed Date Cecal cancer 12/31/2023 Acute blood loss anemia 12/30/2023 Acute anemia 12/29/2023 Iron deficiency anemia due to chronic blood loss 12/29/2023 Ganglion cyst 08/07/2015 Personal history of malignant neoplasm of breast 10/05/2012 S/P MARICAL /BSO - 1 ovary 08/24/2012 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 Breast cancer 08/01/2012 Overview (08/10/2015): Stage: T2 N0 Date of diagnosis: 07/28/12 Diagnosis: right 3.2 cm IDC 0/1 LN ER 5/8 [place] - HER2/deo 6.5 Ki67 67% Surgeon: Graham/Hussein [...] year Assessment & Plan (07/19/2013 9:39 AM SHADER AND TONER): Herceptin until August 30 On AI ECHO b 61% mammo Left Jul 27 Assessment & Plan (06/07/2013 2:18 PM SHADER AND TONER): Herceptin u8ntil Apirl On AI - belly fat; hair not growing ECHO due mammo left October Seroma right breast Assessment & Plan (04/26/2013 10:14 AM SHADER AND TONER): hercetpin until August On AI ECHO 65% -repeat in May mammo left October Port/implant on right is hard - get u/s Assessment & Plan (03/15/2013 10:24 AM CDT): 9 month out On AI On Hercetpin until August ECHO in Dec Assessment & Plan (01/25/2013 10:36 AM CDT): [...] Description 11/03/2024 12:30 PM CDT Office Visit [facility] Surgical Spec [place] [address] [place] [address] Oma Patten MD History of colon cancer (Primary Dx) 11/01/2024 9:40 AM CDT - 11/01/2024 11:59 PM CDT Hospital Encounter [facility] Medical [place] [address] [place] [address] Ness Guzman MD Discharge Disposition: Home or Self Care 11/01/2024 Chart Note [facility] Radiology [facility] Area [address] [facility] [address] [place] [address] Lesley Perry, NATHALIE Breast Problem (Left breast calcifications) 10/31/2024 External Device Data STL ABSTRACTION Provider, Abstract 10/25/2024 1:00 PM CDT Office Visit [facility] Oncology and Hematology [facility] [address] [facility] [address] [place] [address] Ness Guzman MD Cecal cancer ([facility]/HCC) (Primary Dx); Abnormal mammogram; Hormone receptor positive malignant neoplasm of right breast ([facility]/HCC) 10/25/2024 11:45 AM CDT - 10/25/2024 11:59 PM CDT Hospital Encounter Anand Arellano [facility] 2nd Fl [address] [place] [address] Ness Guzman MD Discharge Disposition: Home or Self Care 10/25/2024 Orders Only [facility] Oncology [facility] [address] [facility] [address] [place] [address] Ness Guzman MD 10/24/2024 External Device Data STL ABSTRACTION Provider, Abstract 10/19/2024 10:00 AM CDT - 10/19/2024 11:59 PM CDT Hospital Encounter [facility] Medical [place] [address] [place] [address] [facility], External Provider Discharge Disposition: Home or Self Care 10/19/2024 External Device Data STL ABSTRACTION Provider, Abstract 10/18/2024 External Device Data STL ABSTRACTION Provider, Abstract 10/17/2024 11:43 AM CDT - 10/17/2024 11:59 PM CDT Hospital Encounter [facility] Imaging Services [address] [place] [address] Ness Guzman MD Discharge Disposition: Home or [...] on file Legal Sex Female 8:11 AM SHADER AND TONER Gender Identity Not on file Sexual Orientation Not on file 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 Not on file Not on file Not on file Last Filed Vital Signs Vital Sign Reading Time Taken Comments Blood Pressure 112/72 11/03/2024 12:31 PM CDT Pulse 71 10/25/2024 12:41 PM CDT Temperature 36.7 C (98.1 F) 10/25/2024 12:41 PM CDT Respiratory Rate 16 07/13/2024 11:05 AM SHADER AND TONER Oxygen Saturation 97% 10/25/2024 12:41 PM CDT Inhaled Oxygen Concentration - - Weight 81 kg (178 lb 9.6 oz) 11/03/2024 12:31 PM CDT Height 167.6 cm (5' 6) 11/03/2024 12:31 PM CDT Body Mass Index 28.83 11/03/2024 12:31 PM CDT Plan of Treatment Upcoming Encounters Date Type Department Care Team (Latest Contact Info) Description 11/14/2024 1:30 PM CDT Appointment [facility] Medical [place] [address] [facility] [address] [place] [address] Ness Guzman MD [address] [place] [address] 01/03/2025 7:00 AM CDT Hospital Encounter [facility] GI Lab S [facility] [address] [place] [address] Oma Patten MD [address] [facility] [address] [place] [address] Personal history of colon cancer 01/03/2025 7:00 AM CDT - 01/03/2025 7:45 AM CDT Surgery [facility] GI Lab S [facility] [address] [place] [address] Oma Patten MD [address] [facility] [address] [place] [address] COLONOSCOPY 01/18/2025 12:30 PM CDT Appointment [facility] Imaging Services [facility] [address] [place] [address] Ness Guzman MD [address] [place] [address] 02/05/2025 1:30 PM CDT Office Visit [facility] Surgical Spec [place] [address] [place] [address] Oma Patten MD [address] [facility] [address], [place] [address] Scheduled Procedures Name Priority Associated [...] 02/28/2020 OSTEOPOROSIS SCREENING 08/26/2025 , 02/12/2016, 07/02/2012 BREAST CANCER SCREENING 11/01/2025 11/02/19 25, 02/03/2022, 01/20/2021, Additional history exists RSV VACCINE (60+ or ) (1 - 1-dose 75+ series) 2033 COLORECTAL SCREENING Discontinued 12/30/2023, 12/30/19 24 Colorectal Cancer Screening Discontinued FIT-DNA Q 3 years Discontinued FIT/FOBT Q 1 year Discontinued Flex Sig/CT Colonography Q 5 years Discontinued Medical Devices Implanted Type Area Marble Polisher Device Identifier Shelf Expiration Date Model / Serial / Lot Clip Hemolok Lrg [id number] - Csc - [id number] Implanted:Qty : 1 on 01/18/2024 by Oma Patten MD at [facility] Clip N/A: Abdomen TELEFLEX- WECK CLOSURE SYS 05/10/2027 [id number] / / [id number] Clip Hemolok Lrg [id number] - Csc - [id number] Implanted:Qty : 1 on 01/18/2024 by Oma Patten MD at [facility] Clip N/A: Abdomen TELEFLEX- WECK CLOSURE SYS 05/06/2028 [id number] / / [id number] Mammary Silicone Gel 421ml 15-421 - [id number] Implanted:Qty : 1 on 09/01/2013 by Bon Savage MD at [facility] [place] Mammary Right: Breast ALLERGAN- MEDICAL 07/28/2018 [id number] / [id number] / Port Powerport Clearvue 8fr Mri [id number] - [id number] Implanted:Qty : 1 on 02/10/2024 by Oma Patten MD at [facility] Port N/A: Chest BARD AARON VASC 06/30/2025 [id number] / / [id number] Explanted Type Area Marble Polisher Device Identifier Shelf Expiration Date Model / Serial / Lot Rubber Production Machine Operator Tissue Mammary 500ml 133mx-13 - [id number] Implanted:Qty : 1 on 08/10/2012 by [place] [facility] [place]ed:Qty : 1 on 09/01/2013 by Bon aSvage [place] [facility] [place] Mammary Right: Breast ALLERGAN- MEDICAL 04/12/2016 [id number]-13 / [id number] / [id number] Description:Filled with 180 ml saline Port Pwrprt Slim Chrnflx Cath 6fr [id number] - [id number] Implanted:Qty : 1 on 08/26/2012 by Ellyn Rod [place] [facility] [place] Explanted:Qty : 1 on 09/01/2013 by Bon Savage [place] [facility] [place] Port Left: Chest 03/28/2014 [id number] / [id number] / [id number] Procedures Procedure Name Priority Date/Time Associated Diagnosis [...] RECOMMENDATIONS: Stereotactic biopsy left breast DICTATION LOCATION: [facility] 11/01/2024 11:03 AM CDT EXAM: LEFT BREAST [...] - 9.8 K/uL 10/25/2024 1:55 PM CDT [facility] RBC 4.18 3.90 - 4.90 M/uL 10/25/2024 1:55 PM CDT [facility] HEMOGLOBIN 12.7 11.8 - 14.8 g/dL 10/25/2024 1:55 PM CDT [facility] HEMATOCRIT 38.5 35.5 - 44.0 % 10/25/2024 1:55 PM CDT [facility] MCV 92.1 82.0 - 99.0 fL 10/25/2024 1:55 PM CDT [facility] MCH 30.4 27.2 - 32.6 pg 10/25/2024 1:55 PM CDT [facility] MCHC 33.0 31.5 - 35.5 g/dL 10/25/2024 1:55 PM CDT [facility] RDW 13.2 11.5 - 14.5 % 10/25/2024 1:55 PM CDT [facility] RDW-STDEV 44.9 37.1 - 48.7 fL 10/25/2024 1:55 PM CDT [facility] PLATELETS 198 140 - 350 K/uL 10/25/2024 1:55 PM CDT [facility] MPV 10.2 9.3 - 12.4 fL 10/25/2024 1:55 PM CDT [facility] NEUTROPHILS 51 % 10/25/2024 1:55 PM CDT [facility] LYMPHOCYTES 33 % 10/25/2024 1:55 PM CDT [facility] MONOCYTES 11 % 10/25/2024 1:55 PM CDT [facility] EOSINOPHILS 4 % 10/25/2024 1:55 PM CDT [facility] BASOPHILS 1 % 10/25/2024 1:[address] [facility]OR[facility]ORY SERVICES - . [facility] IMMATURE GRANULOCYTES 0 % 10/25/2024 1:[address] [facility]OR[facility]ORY SERVICES - . [facility] NEUTROPHIL ABSOLUTE 4.26 1.90 - 7.00 K/uL 10/25/2024 1:[address] [facility]OR[facility]ORY SERVICES - . [facility] LYMPHOCYTE ABSOLUTE 2.71 0.70 - 4.50 K/uL 10/25/2024 1:[address] [facility] LABORATORY SERVICES - . [facility] MONOCYTE ABSOLUTE 0.90 0.10 - 1.30 K/uL 10/25/2024 1:[address] [facility]ORY SERVICES - . [place] EOSINOPHIL ABSOLUTE 0.32 0.00 - 0.70 K/uL 10/25/2024 1:[address] [facility] - . [place] BASOPHILS ABSOLUTE 0.08 0.00 - 0.20 K/uL 10/25/2024 1:[address] [facility]ORY [facility] - . [facility] IMMATURE GRANULOCYTES ABSOLUTE 0.03 0.00 - 0.03 K/uL 10/25/2024 1:[address] [facility]ORATORY SERVICES - [facility] Blood Collection / Unknown 10/25/2024 1:27 PM CDT 10/25/2024 1:50 PM CDT us Ness Guzman MD HEMATOLOGY ORDERABLES Final Res ult [facility]# [id number] [address] [place] [address] * CEA (10/25/2024 1:27 PM CDT) CEA <2.0 See Note: ng/mL [facility] Comment: Reference Range: Non-Smoker: <2.5 Smoker: <5.0 This test was performed using the Siemens chemiluminescent method. Values obtained from different assay methods cannot be used interchangeably. CEA levels, regardless of value, should not be interpreted as absolute evidence of the presence or absence of disease. Test Performed at: [facility] [address] [place] [address] Seymour Snow MD Blood 10/25/2024 1:27 PM CDT 10/25/2024 2:52 PM CDT Ness Guzman MD CHEMISTRY ORDERABLES Final Resu lt [facility] [phone] [employer] [facility] [address] [place] [address] * (ABNORMAL) COMPREHENSIVE METABOLIC PANEL (10/25/2024 1:27 PM CDT) SODIUM 131(L) 136 - 145 mmol/L 10/25/2024 2:39 PM CDT [facility] POTASSIUM 4.2 3.5 - 5.0 mmol/L 10/25/2024 2:39 PM CDT [facility] CHLORIDE 95(L) 98 - 107 mmol/L 10/25/2024 2:39 PM CDT [facility] CO2 26 22 - 29 mmol/L 10/25/2024 2:39 PM CDT [facility] CALCIUM 9.7 8.6 - 10.2 mg/dL 10/25/2024 2:39 PM CDT [facility] BUN 11 8 - 23 mg/dL 10/25/2024 2:39 PM CDT [facility] CREATININE 0.79 0.51 - 0.95 mg/dL 10/25/2024 2:39 PM CDT [facility] GLUCOSE 107(H) 74 - 99 mg/dL 10/25/2024 2:39 PM CDT [facility] TOTAL PROTEIN 7.4 6.7 - 8.6 g/dL 10/25/2024 2:39 PM CDT [facility] ALBUMIN 4.5 3.5 - 5.2 g/dL 10/25/2024 2:39 PM CDT [facility] BILIRUBIN TOTAL 0.5 0.0 - 1.1 mg/dL 10/25/2024 2:39 PM CDT [facility] ALKALINE PHOSPHATASE 276(H) 35 - 104 U/L 10/25/2024 2:39 PM CDT [facility] AST 81(H) <33 U/L 10/25/2024 2:39 PM CDT [facility] ALT 91(H) <34 U/L 10/25/2024 2:39 PM T [facility] GFR >60 >=60 mL/min/1.7 3 sq meter 10/25/2024 2:39 PM T [facility] Comment:eGFR calculated with 2020 CKD-EPI equation. Vegetarian diet, extremely high or low muscle mass, and may affect results. Cystatin C with Glomerular Filtration Rate is a suitable alternative for these patients. ANION GAP 10 8 - 16 mmol/L 10/25/2024 2:39 PM T [facility] Blood Collection / Unknown 10/25/2024 1:27 PM CDT 10/25/2024 2:00 PM CDT Narrative [facility] - 10/25/2024 2:39 PM CDT Samples containing indocyanine green cause interferences on Total and/or Direct Bilirubin and must not be measured. Ness Guzman MD CHEMISTRY ORDERABLES Final Resu lt [facility]# [id number] [address] [place] [address] [place] [address] * MAMMO PRIOR STUDY (10/19/2024 10:00 AM CDT) Narrative 11/01/2024 9:58 AM CDT This exam was auto finalized to allow images to be scanned to PACS. External Provider [facility] DIAGNOSTIC IMAGING ORDER NURYS Final Result * CT CHEST ABDOMEN PELVIS W CONT (10/17/2024 12:25 PM CDT) Anatomical Region Laterality Modality Chest Computed Tomogra phy 10/17/2024 12:1 4 PM CDT Impressions 10/17/2024 12:56 PM CDT IMPRESSION: 1. Postoperative changes as above. 2. No evidence of metastatic disease. DICTATION LOCATION: Location [address] [place] [address] 10/17/2024 12:[address] CHEST, ABDOMEN [...] evidence of metastatic disease. DICTATION LOCATION: Location [address] [place] [address] us Ness Guzman MD CT ORDERABLES Final Result * POC CREATININE (10/17/2024 12:12 PM CDT) CREATININE POC 1.00 0.60 - 1.30 mg/dL 10/17/2024 12:12 PM CDT [facility] GFR POC >60 >=60 mL/min/1.7 3 sq meter 10/17/2024 12:12 PM CDT [facility] Comment:eGFR calculated with 2020 CKD-EPI equation. Vegetarian diet, extremely high or low muscle mass, and may affect results. Cystatin C with Glomerular Filtration Rate is a suitable alternative for these patients. Blood, whole 10/17/2024 12:1 2 PM CDT 10/17/2024 3:05 PM CDT us Ness Guzman MD POINT OF CARE TESTING Final Res ult [facility] CLIA# [id number] [address] [place] [address] * COLONOSCOPY REPORT (12/30/2023 11:20 AM CDT) Narrative Procedure Note Sandi Hernandez MD - 12/30/2023 11:20 AM CDT [facility] Endoscopy Patient Name: Pamela Peralta Procedure Date: [...] of Addenda: [address]; [place] [address] us Sandi Hernandez MD GI PROCEDURE ORDERABLES F inal Result * XR DEXA BONE DENSITY AXIAL 1 OR MORE SITES (08/26/2020 8:39 AM CDT) Anatomical Region Laterality Modality Digital Radiogra phy 08/26/2020 8:39 AM CDT Impressions 08/26/2020 8:46 AM CDT IMPRESSION: This is a summary page. Please refer to the complete detailed report found in the Imaging Section of the [facility] EMR. Osteopenia. Lumbar Spine: T-Score: -0.3 Left [...] the lumbar spine and hip(s) using a [employer] DEXA scanner for bone mineral density determination [...] T-Score: -1.9 INCIDENTAL FINDINGS: None. Procedure Note aFrzad Le MD - 08/26/2020 EXAMINATION: BONE DENSITY STUDY (DXA) DATE: 08/26/2020 8:39 AM HISTORY: 60 years Female. Postmenopausal. PROCEDURE: Planar images of the lumbar spine and hip(s) using a [employer] DEXA scanner for bone mineral density determination [...] found in the Imaging Section of the [facility] EMR. Osteopenia. Lumbar Spine: T-Score: -0.3 Left [...] Dr. Farzad Le MD DICTATION LOCATION: 1 [facility] Arvind Nolasco MD DIAGNOSTIC IMAGING ORDERABLES Final Result from Last 3 Months or Most Recently Relevant to Health Maintenance Insurance RX [employer] Commercial RX [employer] Commercial RX [employer]ARC[employer] PLANS (INTERNAL) [facility] Plans MEDICARE PART A HOSPITAL ONLY [facility] BLUE ACCESS CHOICE Advance Directives For more information, please contact: [phone] * Full Code (Latest Code Status on [...] 2:53 AM 12/31/2023 7:55 PM Care Teams Procedures Rn Relationship Specialty Start Date End Date Ashwini Enciso DO [address] [place] [address] PCP - General Family Practice 01/06/21
--- OUTSIDE RECORDS SUMMARY | 2024-11-09 04:55 | XMS_ITS ---
Author Organization [facility] [place] Address [address] [place] [address] Phone Care Team Providers Care Back Feeder Plywood Layup Line Name Role Phone Ashwini Enciso DO Primary Care Provider +1- [phone] Active Problems Patient Care Coordination No te Formatting of this note migh t be different from the original. Primary Care: Sg Mendoza MD Referring Provider: Sg Mendoza MD [address] [place] [address] Other: Dr Jaylene Stevenson Problem Noted Date [...] 3.2 cm IDC 0/1 LN ER 5/8 [place] - HER2/deo 6.5 Ki67 67% Surgeon: Graham/Hussein [...] year Assessment & Plan (07/19/2013 9:39 AM PHOTO JOURNALIST): Herceptin until August 30 On AI ECHO Jul 61% mammo Left Jul 27 Assessment & Plan (06/07/2013 2:18 PM PHOTO JOURNALIST): Herceptin u8ntil Apirl On AI - belly fat; hair not growing ECHO due mammo left October Seroma right breast Assessment & Plan (04/26/2013 10:14 AM PHOTO JOURNALIST): hercetpin until August On AI ECHO 65% [...]
--- OUTSIDE RECORDS SUMMARY | 2024-11-09 04:55 | XMS_ITS | Clinical Summary ---
Author Organization [facility] Medical [facility] 1 Address [address] [place] [address] Care Team Providers Care Thermal Cutter Helper Name Role Phone Ashwini Enciso DO Primary Care Provider +1- [phone] Allergies Active Allergy Reactions Criticality Noted Date [...] (02/16/2019): Added automatically from request for surgery [id number] Renal mass 03/04/2018 Overview (03/04/2018): Added automatically from request for surgery [id number] Ganglion cyst 08/07/2015 S/P MARCIAL (total abdominal hysterectomy) 3 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 Breast cancer 08/01/2012 Overview (11/05/2024): Stage: T2 N0 Date of diagnosis: 07/28/12 Diagnosis: right 3.2 cm IDC 0/1 LN ER 5/8 [place] - HER2/deo 6.5 Ki67 67% Surgeon: Graham/Hussein Surgery: 08/10/12 right Tm/SLN and TE Medical Oncologist: Stefanlin --> Gaurav Chemotherapy: TCH x 3 then Carbo HERCEPTIN UNTIL August 2013 Radiation: none Hormonal therapy: Aromasin switched 01/2015 (changed from letrozole 01/25/13) Acute postoperative abdominal pain Hx of total cystectomy Encounters Date Type Department Care Team Description 11/06/2024 Telephone [facility] at [address] [address] Jane Aponte [place] [facility] 11/05/2024 8:00 AM CDT Office Visit [facility] at [address] [address] Gabriela Rosario NP Left [...] on file 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 Gender Identity Not on file Sexual Orientation [...] 02/14/2019, 04/18/2018 Medical Devices Implanted Type Area Upholstery Covers Inspector Device Identifier Shelf Expiration Date Model / Serial / Lot [employer]ol Inc/C R Bard [id number] Bard Marlex [id number] Monofilament Gold Standard Flat Sheet - [id number] Implanted:Qty: 1 on 05/29/2019 by Robb Maier MD at [facility] Mesh N/A: Abdomen [employer] Inc/C R Bard [id number] 04/27/2022 [id number] / / [id number] [employer] [id number] Carter 6mm 14cm 7.4 Loop Catheter End Hole Arterial Venous Coil - [id number] Implanted:Qty: 1 on 03/10/2018 at [facility] [employer] 08/28/2021 [id number] / / [id number] [employer] [id number] Carter 6mm 14cm 7.4 Loop Catheter End Hole Arterial Venous Coil - [id number] Implanted:Qty: 1 on 03/10/2018 at [facility] [employer] 08/28/2021 [id number] / / [id number] [employer] [id number] Carter 6mm 14cm 7.4 Loop Catheter End Hole Arterial Venous Coil - [id number] Implanted:Qty: 1 on 03/10/2018 at [facility] [employer] 08/28/2021 [id number] / / [id number] [employer] [id number] Carter 6mm 14cm 7.4 Loop Catheter End Hole Arterial Venous Coil - [id number] Implanted:Qty: 1 on 03/10/2018 at [facility] [employer] 07/28/2022 [id number] / / [id number] [employer] [id number] Carter 6mm 14cm 7.4 Loop Catheter End Hole Arterial Venous Coil - [id number] Implanted:Qty: 1 on 03/10/2018 at [facility] [employer] 06/05/2020 [id number] / / [id number] [employer] [id number] Carter 6mm 14cm 7.4 Loop Catheter End Hole Arterial Venous Coil - [id number] Implanted:Qty: 1 on 03/10/2018 at [facility] [employer] 08/13/2021 [id number] / / [id number] Megan[employer] [id number] Angio-Seal Vip Bondek-Plus 6fr .035in 70cm Hemostatic Latex Free - [id number] Implanted:Qty: 1 on 03/10/2018 at [facility] 10/28/2018 [id number] / / [id number] Insurance CHOICE PLUS CHOICE PLUS CHOICE PLUS BL CHOICE PRF [place]PO [place] Advance Directives For more information, please contact: [phone] Documents on File Type Date Recorded Patient Cycle Consultant Expl anation ADVANCE DIRECTIVE 05/29/2019 11:54 AM Tawny ing Will * Full Code (Latest Code Status on File) Date Activated Date Inactivated Comments 05/29/2019 8:26 PM 06/01/2019 5:22 PM * Full Code Date Activated Date Inactivated Comments 03/10/2018 7:38 AM 03/14/2018 1:48 PM Care Teams Thermal Cutter Helper Relationship Specialty Start Date End Date Ashwini Enciso DO PCP - General Family Medicine 09/22/19
--- OUTSIDE RECORDS SUMMARY | 2024-11-09 04:55 | XMS_ITS ---
Author Organization [facility] Medical [facility] 1 Address [address] [place] [address] Care Team Providers Care Spaghetti Machine Operator Name Role Phone Ashwini Enciso DO Primary Care Provider +1- [phone] Active Problems Problem Noted Date Diagnosed Date HTN (hypertension) 11/05/2024 Hyperlipidemia 11/05/2024 Panic anxiety syndrome 11/05/2024 Cecal cancer 12/31/2023 Acute anemia 12/29/2023 Iron deficiency anemia due to chronic blood loss 12/29/2023 Incisional hernia, without obstruction or gangre ne 02/16/2019 Overview (02/16/2019): Added automatically from request for surgery [id number] Renal mass 03/04/2018 Overview (03/04/2018): Added automatically from request for surgery [id number] Ganglion cyst 08/07/2015 S/P MARCIAL (total abdominal [...]
--- NOTE | 2024-11-09 07:07 | WPDHPUPDATE1 ---
History and Physical Update Update Date/Time: 11/09/24 07:07 Patient seen and examined in pre-operative holding area. No interval change in medical history or symptoms. Patient recalls previous discussion of benefits and alternatives to procedure. Continues to desire to proceed with closed possible open reduction possible fixation left middle finger pipjoint fracture dislocation. Reviewed procedure, post-op expectations and risks including but not limited to bleeding, infection, injury to tendon/nerve/vessel, decreased hand function, stiffness, RSD, no change or worsening of symptoms, malunion, nonunion. I discussed the possible use of assistants and their participation in the case. Patient stated understanding and signed the consent form wishing to proceed.
--- NOTE | 2024-11-09 07:08 | W.PM.PROC2 ---
Procedure Note - Detailed Date of Procedure 11/09/24 Pre-op Diagnosis fracture dislocation left middle finger PIP joint Post-op Diagnosis Same Procedure Performed closed reduction left middle finger pipjoint fracture dislocation Surgeon Philipp Powers MD Anesthesia MAC Description of Procedure INFORMED CONSENT: The patient was seen and examined and marked in the pre-op area.? The patient signed the consent form. PROCEDURE IN DETAIL:The patient taken back to OR on the stretcher in supine position. Time out performed with anesthesia, surgeon and staff agreeing on patient's name site and surgery to be performed SCDs were placed on the lower extremities and inflated. After anesthesia administered sedation I injected {6}cc 1%lido and 0.5% marcaine plain for digital block in the palm The?{left upper extremity}?was prepped and draped in sterile fashion I the mini c-arm was draped and brought into the field. The left middle finger pipjoint was evaluated verifying fracture dislocation then closed reduction menauever performed and the joint was reduced. The volar plate avulsion fragment was initially malrotated but after further manipulation of the joint I was able to achieve adequate fracture reduction.This was verified on multiple views of fluorsocpy. A dressing of 4x4, nicolle, and a dorsal extension block splint was applied for patient safety, security, and comfort and secured with an doroteo bandage. The hand was warm and well perfused. The patient was then awaken from anesthesia and transferred to the recovery room in stable condition.? Complications - none EBL- 0cc Disposition - home in stable conditions [facility] Billing Surgery - Charge Forward: Surgery Billing ([id number])
[2024-11-09 11:42] VITALS: BP 129/69; PULSE 61; RESP 16; TEMP 36.6; O2SAT 99; BMI 28.5
[2024-11-09] MEDS: LACTATED RINGERS 1,000 ML 30 ML IV CONT (11:45)
--- NOTE | 2024-11-09 13:01 | P.PNAN_ITS ---
Anes - Initial Pre Proc Eval Procedure: Operation Date: 11/09/24 12:30 Proposed Procedures p Left Middle Finger Proximal Interphalangeal Joint Closed Reduction, Possible Pin Fixation - Philipp Powers MD Date/Time: 11/09/24 13:01 Surgeon: Philipp Powers MD Pre Op Diagnosis: dorsal dislocation left PIP joint Patient Data Age: 64 Gender: F Height: 1.68 m Weight: 80.4 kg Last Vital Signs Temp 36.6 C 11/09/24 11:42 Pulse 61 11/09/24 11:42 Resp 16 11/09/24 11:42 BP 129/69 11/09/24 11:42 Pulse Ox 99 11/09/24 11:42 O2 Del Method Room Air 11/09/24 11:42 Allergies Allergy/AdvReac Type Severity Reaction Status Date / Time Barbiturates Allergy Severe ANALPHALAXI Verified 11/07/24 14:09 S belladonna alkaloids Allergy Severe ANALPHALAXI Verified 11/07/24 14:09 S Cephalosporins Allergy Severe RASH Verified 11/07/24 14:09 cortisone Allergy Severe HIVES Verified 11/07/24 14:09 phenobarbital Allergy Severe ANALPHALAXI Verified 11/07/24 14:09 S cat dander Allergy Unknown Sneezing Verified 11/07/24 14:09 cephalexin Allergy Unknown serum Verified 11/07/24 14:09 sickness Corticosteroids Allergy Unknown Skin Verified 11/07/24 14:09 (Glucocorticoids) Reaction docetaxel Allergy Unknown Asthma Verified 11/07/24 14:09 mold Allergy Unknown Sneezing Verified 11/07/24 14:09 Penicillins Allergy Unknown Rash Verified 11/07/24 14:09 prochlorperazine Allergy Unknown dystonic Verified 11/07/24 14:09 reaction ciprofloxacin (From Cipro) Allergy Unknown Verified 11/07/24 14:09 hydromorphone (From Dilaudid) AdvReac Severe hallucinati Verified 11/07/24 14:09 on ANTICHOLINERGICS,OTHER Allergy Severe ANALPHALAXI Uncoded 11/07/24 14:09 S Home Medications ?Medication ?Instructions ?Recorded ?Confirmed ?Type calcium 600 mg (as carbonate)-vit 1 tablet PO DAILY 04/06/19 11/07/24 History D3 20 mcg (800 unit) chewable tablet (Caltrate plus D) coenzyme Q10 200 mg capsule (Co 200 mg PO DAILY 04/06/19 11/07/24 History Q-10) fluticasone propionate 50 2 spray intranasal DAILY PRN 04/06/19 11/07/24 History mcg/actuation nasal allergy symptoms spray,suspension sertraline 100 mg tablet 100 mg PO DAILY 04/06/19 11/07/24 History estradiol 0.01% (0.1 mg/gram) See Rx Instructions vaginal DAILY 07/21/21 11/07/24 History vaginal cream (Estrace) clonazepam 0.5 mg tablet (Klonopin) 0.5 mg PO BID 02/12/22 11/07/24 History alprazolam 0.5 mg tablet (Xanax) 0.5 mg PO DAILY PRN anxiety 03/09/22 11/07/24 History cholecalciferol (vitamin D3) 25 25 mcg PO DAILY 07/07/22 11/07/24 History mcg (1,000 unit) tablet vitamin B complex 1 cap PO DAILY 04/18/24 11/07/24 History metoprolol tartrate 50 mg tablet See Rx Instructions .Route 08/25/24 11/07/24 Rx .COMPLEX #180 tabs atorvastatin 20 mg tablet See Rx Instructions .Route 10/24/24 11/07/24 Rx .COMPLEX #90 tabs hydrocodone 5 mg-acetaminophen 325 1 tablet PO Q8H PRN pain #14 tabs 11/06/24 11/07/24 Rx mg tablet omeprazole 20 mg capsule,delayed 20 mg PO DAILY PRN GERD 11/07/24 11/07/24 History release Patient hx anesthesia problems: none Family hx anesthesia problems: none Results Review: All pre-operative results and documents have been reviewed as part of the pre- operative evaluation. [facility] Past Medical History Medical History Seborrheic keratosis Encounter for HCV screening test for low risk patient (~09/24/17) Cyst (~10/24/08) Mammogram normal (~07/02/11) History of bone density study (~07/19/12) Breast cancer (~2012) Surgical History Surgical History History of hernia surgery (~05/29/19) History of kidney removal (~02/2018) History of section (~1987) History of vaginal hysterectomy (~09/24/17) History of shoulder surgery (~2004) History of colonoscopy (~06/21/09) History of breast biopsy (~07/29/12) Family History Family History Grandparent Family history of mental disorder Malignant neoplasm of prostate Family history of malignant neoplasm of breast Mother Hypertension Family history of malignant neoplasm Sibling Hypertension Cerebrovascular accident Father Cerebrovascular accident Malignant neoplasm of prostate Family history of coronary artery disease Diabetes mellitus Family history of cardiovascular disease Family history of malignant neoplasm of thyroid Other Family history of elevated blood lipids Social History Social History Smoking status: Never smoker Alcohol intake: current Alcohol use details: rarely Substance use: never Substance use type: does not use Lack of Transportation: No Lack of Food: Never True Current Housing: I Have Housing Concerned About Future Housing: No Difficulty Paying Gas/Electric Bills: No Difficulty Paying for Meds: No Currently Unemployed: No Education: Bachelor's Degree Difficulty w/ Childcare or Family Care: No Living arrangements: with family Occupation/Education: occupation Gender identity (if verbalized by the patient): Female Sexual Orientation (if Verbalized by the Patient): Straight or Heterosexual Agree to blood products: Yes Anes - Eval Final PreProcedure Day of Procedure 11/09/24 13:01 Patient weight: overweight Heart: regular rate and rhythm Lungs: clear to auscultation Airway: Mallampati scale class II Neurological: alert and oriented Last oral intake: >/= 8 hours ASA classification: III Emergent: no Anesthetic plan: proceed Anesthesia type and monitoring: general LMA and standard monitoring Results Review: All pre-operative results and documents have been reviewed as part of the pre- operative evaluation. Informed Consent: The patient's anesthetic plan and its attendant risks and benefits were discussed with the patient/family/POA. Questions were solicited and answers provided to the satisfaction of the patient/family/POA.
[2024-11-09] MEDS: BUPivacaine HCL 0.5% PF 30 ML VIAL INFILTRATE (13:15)
[2024-11-09 13:26] VITALS: BP 111/60; PULSE 68; RESP 21; O2SAT 96
[2024-11-09 13:55] VITALS: BP 126/63; PULSE 62; RESP 18; O2SAT 99
[2024-11-09 14:17] VITALS: BP 135/55; PULSE 59; RESP 16; O2SAT 100
== END 2024-11-09 14:34 | disposition home or self-care (01) ==
PROVIDERS: PCP Family Medicine; Visit Provider Plastic Surgery
PROC: (CPT 26742; principal; 2024-11-09 12:30)
DX: S62.613A Displaced fracture of proximal phalanx of left middle finger, initial encounter for closed fracture (principal); W19.XXXA Unspecified fall, initial encounter
CPT/HCPCS: 26742; 99199; A9270; J2003; J2250; J2405; J2704; J3010; J7120

== ENCOUNTER 2024-12-04 10:17 | Outpatient (CLI) | payer MEDICARE, SELFPAY ==
--- NOTE | ~2024-12-04 | XR_ITS ---
EXAM/ PROCEDURE: XR finger 3rd LT min 2V - 12/04/2024 10:36 CDT HISTORY: 64 years old Female with S62.623A - Displaced fracture of middle phalanx of left m... COMPARISON: 11/09/2024 TECHNIQUE: Four view(s) FINDINGS/ IMPRESSION: Healing nondisplaced fracture of the volar aspect of the base of the third middle phalanx. Normal ali gnment. Joint space narrowing, subchondral sclerosis, subchondral cyst formation and osteophyte forma tion, compatible with mild osteoarthritis. Reviewed, dictated and finalized at location A.
--- OUTSIDE RECORDS SUMMARY | 2024-12-04 10:38 | XMS_ITS | Referral Summary ---
Author Organization [facility] Medical [facility] 1 Address [address] [place] [address] Care Team Providers Care Cutter Apprentice Hand Name Role Phone Ashwini Enciso DO Primary Care Provider +1- [phone] Encounters Date Type Department Care Team Description 11/06/2024 Telephone [facility] at [address] [address] Cierra [place], [place] Media 11/05/2024 8:00 AM CDT Office Visit [facility] Medical [facility] Care at [address] [address] Gabriela Rosario NP Left [...] (02/16/2019): Added automatically from request for surgery [id number] Renal mass 03/04/2018 Overview (03/04/2018): Added automatically from request for surgery [id number] Ganglion cyst 08/07/2015 S/P MARCIAL (total abdominal hysterectomy) 3 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 Breast cancer 08/01/2012 Overview (11/05/2024): Stage: T2 N0 Date of diagnosis: 07/28/12 Diagnosis: right 3.2 cm IDC 0/1 LN ER 5/8 MS - HER2/deo 6.5 Ki67 67% Surgeon: Graham/Hussein [...] on file 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 Gender Identity Not on file Sexual Orientation [...] on file Medical Devices Implanted Type Area Awning Hanger Device Identifier Shelf Expiration Date Model / Serial / Lot Davol Inc/C R Bard [id number] Bard Marlex [id number] Monofilament Gold Standard Flat Sheet - [id number] Implanted:Qty: 1 on 05/29/2019 by Robb Maier MD at [facility] Mesh N/A: Abdomen Davol Inc/C R Bard [id number] 04/27/2022 [id number] / / [id number] [employer] [id number] Carter 6mm 14cm 7.4 Loop Catheter End Hole Arterial Venous Coil - [id number] Implanted:Qty: 1 on 03/10/2018 at [facility] [employer] 08/28/2021 [id number] / / [id number] [employer] [id number] Carter 6mm 14cm 7.4 Loop Catheter End Hole Arterial Venous Coil - [id number] Implanted:Qty: 1 on 03/10/2018 at [facility] [employer] 08/28/2021 [id number] / / [id number] [employer] [id number] Carter 6mm 14cm 7.4 Loop Catheter End Hole Arterial Venous Coil - [id number] Implanted:Qty: 1 on 03/10/2018 at [facility] [employer] 08/28/2021 [id number] / / [id number] [employer] [id number] Carter 6mm 14cm 7.4 Loop Catheter End Hole Arterial Venous Coil - [id number] Implanted:Qty: 1 on 03/10/2018 at [facility] [employer] 07/28/2022 [id number] / / [id number] [employer] [id number] Carter 6mm 14cm 7.4 Loop Catheter End Hole Arterial Venous Coil - [id number] Implanted:Qty: 1 on 03/10/2018 at [facility] [employer] 06/05/2020 [id number] / / [id number] [employer] [id number] Carter 6mm 14cm 7.4 Loop Catheter End Hole Arterial Venous Coil - [id number] Implanted:Qty: 1 on 03/10/2018 at [facility] [employer] 08/13/2021 [id number] / / [id number] Daig Megan[employer] [id number] Angio-Seal Vip Bondek-Plus 6fr .035in 70cm Hemostatic Latex Free - [id number] Implanted:Qty: 1 on 03/10/2018 at [facility] [employer] 10/28/2018 [id number] / / [id number] Insurance [facility] CHOICE PLUS [facility] CHOICE PLUS CHOICE PRF PPO [place] Advance Directives For more information, please contact: [phone] Documents on File Type Date Recorded Patient Dry House Attendant Expl anation ADVANCE DIRECTIVE 05/29/2019 11:54 AM Tawny ing Will * Full Code (Latest Code Status on File) Date Activated Date Inactivated Comments 05/29/2019 8:26 PM 06/01/2019 5:22 PM * Full Code Date Activated Date Inactivated Comments 03/10/2018 7:38 AM 03/14/2018 1:48 PM Care Teams Cutter Apprentice Hand Relationship Specialty Start Date End Date Ashwini Enciso DO PCP - General Family Medicine 09/22/19
--- OUTSIDE RECORDS SUMMARY | 2024-12-04 10:38 | XMS_ITS ---
Author Organization [facility] Medical [facility] 1 Address [address] [place] [address] Care Team Providers Care Grey Roll Worker Name Role Phone Ashwini Enciso DO Primary Care Provider +1- [phone] Active Problems Problem Noted Date Diagnosed Date HTN (hypertension) 11/05/2024 Hyperlipidemia 11/05/2024 Panic anxiety syndrome 11/05/2024 Cecal cancer 12/31/2023 Acute anemia 12/29/2023 Iron deficiency anemia due to chronic blood loss 12/29/2023 Incisional hernia, without obstruction or gangre ne 02/16/2019 Overview (02/16/2019): Added automatically from request for surgery [id number] Renal mass 03/04/2018 Overview (03/04/2018): Added automatically from request for surgery [id number] Ganglion cyst 08/07/2015 S/P MARCIAL (total abdominal hysterectomy) 3 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 Breast cancer 08/01/2012 Overview (11/05/2024): Stage: T2 N0 Date of diagnosis: 07/28/12 Diagnosis: right 3.2 cm IDC 0/1 LN ER 5/8 AR - HER2/deo 6.5 Ki67 67% Surgeon: Graham/Hussein [...]
--- OUTSIDE RECORDS SUMMARY | 2024-12-04 10:38 | XMS_ITS | Continuity of Care Document ---
Author Organization [facility] Address [address] [place] [address] Phone Care Team Providers Care Keyboard Instrument Repairer Name Role Phone Myers OD, Farzad Unavailable Unavailable Advance Directives Directive Yes / No Effective Date File Name No Information Encounters Encounter Description Practice Location Reason(s) For Visit Diagnoses Date Provider Providers Copied on Encounter [facility], [address], [place], [place], [id number], [place] tel:[phone] [facility] No Information Sep-0 5-200 6 Myers OD Farzad. [address] , [address], [place], [address], [place]. tel:[phone] Family History Family Member Type Diagnosis Age At Onset No Information Payers Payer name Insurance type Covered constitution party ID Authoriza tion(s) No Information Social [...]
--- OUTSIDE RECORDS SUMMARY | 2024-12-04 10:38 | XMS_ITS | Encounter Summary ---
Author Organization [facility] Address [address] [place] [address] Care Team Providers Care Oysterman Name Role Phone Ashwini Enciso DO Primary Care Provider +1- [phone] Encounter Details Date Type Department Care Team (Late st Contact Info) Description 11/16/2024 Results Follow-Up [facility] [address] [place] [address] Freedom Cazares MD [address] [facility] 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 Not on file Not on file Not on file documented as of this encounter Plan of Treatment Upcoming Encounters Date Type Department Care Team (Latest Contact Info) Description 01/08/2025 9:15 AM CDT Hospital Encounter [facility] [address] [place] [address] Oma Patten MD [address] [facility] [address] [place] [address] Personal history of colon cancer 01/08/2025 9:15 AM CDT - 01/08/2025 10:00 AM CDT Surgery [facility] [address] [place] [address] Oma Patten MD [address] [place] [address] [place] [address] COLONOSCOPY 01/18/2025 12:30 PM CDT Appointment [facility] Imaging Services [facility] [address] [place] [address] Ness Guzman MD [address] [facility] [address] [place] [address] 01/24/2025 9:30 AM CDT Office Visit [facility] Oncology and Hematology [facility] [address] [address] Ness Guzman MD [address] [facility] [address] [place] [address] 02/05/2025 1:30 PM CDT Office Visit [facility] Surgical Spec [place] [address] [facility] [address] [place] [address] Oma Patten MD [address] [place] [address] [place] [address] Scheduled Procedures Name Priority Associated Diagnoses Date/Ti me COLONOSCOPY Personal history of colon cancer 01/08/2025 9:15 AM CDT documented as of this encounter Visit Diagnoses Not on filedocumented in this encounter Care Teams Oysterman Relationship Specialty Start Date End Date Ashwini Enciso DO [address] [place] [address] PCP - General Family Practice 01/06/21 documented as of this encounter
--- OUTSIDE RECORDS SUMMARY | 2024-12-04 10:38 | XMS_ITS | Clinical Summary ---
Author Organization [facility] Medical [facility] 1 Address [address] [place] [address] Care Team Providers Care Air Gun Operator Name Role Phone Ashwini Enciso DO Primary Care Provider +1- [phone] Allergies Active Allergy Reactions Criticality Noted Date [...] (02/16/2019): Added automatically from request for surgery [id number] Renal mass 03/04/2018 Overview (03/04/2018): Added automatically from request for surgery [id number] Ganglion cyst 08/07/2015 S/P MARCIAL (total abdominal hysterectomy) 3 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 Breast cancer 08/01/2012 Overview (11/05/2024): Stage: T2 N0 Date of diagnosis: 07/28/12 Diagnosis: right 3.2 cm IDC 0/1 LN ER 5/8 SD - HER2/deo 6.5 Ki67 67% Surgeon: Graham/Hussein Surgery: 08/10/12 right Tm/SLN and TE Medical Oncologist: Stefanlin --> Gaurav Chemotherapy: TCH x 3 then Carbo HERCEPTIN UNTIL August 2013 Radiation: none Hormonal therapy: Aromasin switched 01/2015 (changed from letrozole 01/25/13) Acute postoperative abdominal pain Hx of total cystectomy Encounters Date Type Department Care Team Description 11/06/2024 Telephone [facility] Medical [facility] Convenient Care at [address] [address] Jane Aponte [facility] 11/05/2024 8:00 AM CDT Office Visit [facility] Medical [facility] at [address] [address] Gabriela Rosario NP Left hand [...] on file 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 Gender Identity Not on file Sexual Orientation [...] 01/20/2021 Well Visit 65+ 2023 Influenza Vaccine (#1) 2025 9, 02/14/2019, 04/18/2018 Medical Devices Implanted Type Area Unit Director Device Identifier Shelf Expiration Date Model / Serial / Lot Joeyol Inc/C R Bard [id number] Bard Marlex [id number] Monofilament Gold Standard Flat Sheet - [id number] Implanted:Qty: 1 on 05/29/2019 by Robb Maier MD at [facility] Mesh N/A: Abdomen Davol Inc/C R Bard [id number] 04/27/2022 [id number] / / [id number] [employer] [id number] Carter 6mm 14cm 7.4 Loop Catheter End Hole Arterial Venous Coil - [id number] Implanted:Qty: 1 on 03/10/2018 at [facility] [employer] 08/28/2021 [id number] / / [id number] [employer] [id number] Carter 6mm 14cm 7.4 Loop Catheter End Hole Arterial Venous Coil - [id number] Implanted:Qty: 1 on 03/10/2018 at [facility] [employer] 08/28/2021 [id number] / / [id number] [employer] [id number] Carter 6mm 14cm 7.4 Loop Catheter End Hole Arterial Venous Coil - [id number] Implanted:Qty: 1 on 03/10/2018 at [facility] [employer] 08/28/2021 [id number] / / [id number] [employer] [id number] Carter 6mm 14cm 7.4 Loop Catheter End Hole Arterial Venous Coil - [id number] Implanted:Qty: 1 on 03/10/2018 at [facility] [employer] 07/28/2022 [id number] / / [id number] [employer] [id number] Carter 6mm 14cm 7.4 Loop Catheter End Hole Arterial Venous Coil - [id number] Implanted:Qty: 1 on 03/10/2018 at [facility] [employer] 06/05/2020 [id number] / / [id number] [employer] [id number] Carter 6mm 14cm 7.4 Loop Catheter End Hole Arterial Venous Coil - [id number] Implanted:Qty: 1 on 03/10/2018 at [facility] [employer] 08/13/2021 [id number] / / [id number] Daig [employer] [id number] Angio-Seal Vip Bondek-Plus 6fr .035in 70cm Hemostatic Latex Free - [id number] Implanted:Qty: 1 on 03/10/2018 [place] [facility] 10/28/2018 [id number] / / [id number] Insurance CHOICE PLUS CHOICE PLUS CHOICE PLUS BL CHOICE PRF PPO [place] Advance Directives For more information, please contact: [phone] Documents on File Type Date Recorded Patient Network Mgr Expl anation ADVANCE DIRECTIVE 05/29/2019 11:54 AM Tawny ing Will * Full Code (Latest Code Status on File) Date Activated Date Inactivated Comments 05/29/2019 8:26 PM 06/01/2019 5:22 PM * Full Code Date Activated Date Inactivated Comments 03/10/2018 7:38 AM 03/14/2018 1:48 PM Care Teams Air Gun Operator Relationship Specialty Start Date End Date Ashwini Enciso DO PCP - General Family Medicine 09/22/19
--- OUTSIDE RECORDS SUMMARY | 2024-12-04 10:38 | XMS_ITS ---
Author Organization [facility] Address [address] [place] [address] Phone Care Team Providers Care Vehicle Care Specialist Name Role Phone Ashwini Enciso DO Primary Care Provider +1- [phone] Active Problems Patient Care Coordination No te Formatting of this note migh t be different from the original. Primary Care: Sg Mendoza MD Referring Provider: Sg Mendoza MD [address] [place] [address] Other: Dr Jaylene Stevenson Problem Noted Date [...] year Assessment & Plan (07/19/2013 9:39 AM CONTINUOUS IMPROVEMENT CONSULTANT): Herceptin until August 30 On AI ECHO Jul 61% mammo Left Jul 27 Assessment & Plan (06/07/2013 2:18 PM CONTINUOUS IMPROVEMENT CONSULTANT): Herceptin u8ntil Apirl On AI - belly fat; hair not growing ECHO due mammo left October Seroma right breast Assessment & Plan (04/26/2013 10:14 AM CONTINUOUS IMPROVEMENT CONSULTANT): hercetpin until August On AI ECHO 65% [...]
--- OUTSIDE RECORDS SUMMARY | 2024-12-04 10:38 | XMS_ITS | Clinical Summary ---
Author Organization [facility] Address [address] [place] [address] Phone Care Team Providers Care Dance Master Name Role Phone ReinaldoberhaneAshwini loving Primary Care Provider [phone] Allergies Active Allergy Reactions Criticality Noted Date [...] daily. 180 Tablet 1 04/07/2024 9:53 AM ROTARY PLANER SET UP OPERATOR 4 Active atorvastatin (LIPITOR) 20 mg tablet Take 1 Tablet (20 mg) by mouth daily. 90 Tablet 1 04/19/2024 9:35 AM ROTARY PLANER SET UP OPERATOR 4 Active VITAMIN B COMPLEX ORAL Take by mouth. Ac tive ALPRAZolam (XANAX) 1 mg tablet Take 1 Tablet (1 mg) by mouth 1 time daily as needed. 30 Tablet 5 07/07/2024 3:09 PM ROTARY PLANER SET UP OPERATOR 5 Active PEG-Electrolyt e Soln (NULYTELY) 420 g Recon Soln Take 4,000 mL by mouth see administration instructions. 4000 mL 08/11/2024 3:10 PM CDT 5 Active metoprolol tartrate (LOPRESSOR) 50 mg tablet Take 1 Tablet (50 mg) by mouth 2 times daily (every 12 hours). 180 Tablet 1 11/24/2024 10:52 AM CDT 5 Active sertraline (ZOLOFT) 100 mg tablet Take 1 Tablet (100 mg) by mouth daily. 90 Tablet 1 12/02/2024 12:50 PM CDT 5 Active omeprazole (PriLOSEC) 20 mg [...] Mendoza MD [address] [place] [address] Other: Dr Jaylene Stevenson Problem Noted Date [...] year Assessment & Plan (07/19/2013 9:39 AM ROTARY PLANER SET UP OPERATOR): Herceptin until August 30 On AI ECHO b 61% mammo Left Jul 27 Assessment & Plan (06/07/2013 2:18 PM ROTARY PLANER SET UP OPERATOR): Herceptin u8ntil Apirl On AI - belly fat; hair not growing ECHO due mammo left October Seroma right breast Assessment & Plan (04/26/2013 10:14 AM ROTARY PLANER SET UP OPERATOR): hercetpin until August On AI ECHO 65% [...] Encounters Date Type Department Care Team Description 11/28/2024 External Device Data STL ABSTRACTION Provider, Abstract 11/16/2024 Chart Note [facility] [place] [address] [place] [address] Lesley Perry, NATHALIE Breast Problem (Biopsy results) 11/16/2024 Results Follow-Up [facility] [place] [address] [place] [phone] Freedom Cazares MD PATHOLOGY 11/14/2024 1:26 PM CDT - 11/14/2024 11:59 PM CDT Hospital Encounter [facility] [place] [facility] [address] [place] [address] Ness Guzman MD Discharge Disposition: Home or Self Care 11/14/2024 12:50 PM CDT - 11/14/2024 11:59 PM CDT Hospital Encounter [facility] [place] [facility] [address] [place] [address] Ness Guzman MD Discharge Disposition: Home or Self Care 11/14/2024 External Device Data STL ABSTRACTION Provider, Abstract 11/03/2024 12:30 PM CDT Office Visit [facility] [place] [id number] [place] [address] Oma Patten MD History of colon cancer (Primary Dx) 11/01/2024 9:40 AM CDT - 11/01/2024 11:59 PM CDT Hospital Encounter [facility] [place] [facility] [address] [place] [address] Ness Guzman MD Discharge Disposition: Home or Self Care 11/01/2024 Chart Note [facility] [place] [address] [place] [address] Lesley Perry, NATHALIE Breast Problem (Left breast calcifications) 10/31/2024 External Device Data STL ABSTRACTION Provider, Abstract 10/25/2024 1:00 PM CDT Office Visit [facility] Oncology and Hematology [facility] [address] [place] [address] Ness Guzman MD 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 [address] [facility] [address] [place] [address] Ness Guzman MD 10/24/2024 External Device Data STL ABSTRACTION Provider, Abstract 10/19/2024 10:00 AM CDT - 10/19/2024 11:59 PM CDT Hospital Encounter [facility] [place] [address] [facility] [address] [facility] [address] [place] [address] [facility], External Provider Discharge Disposition: Home or Self Care 10/19/2024 External Device Data STL ABSTRACTION Provider, Abstract 10/18/2024 External Device Data STL ABSTRACTION Provider, Abstract 10/17/2024 11:43 AM CDT - 10/17/2024 11:59 PM CDT Hospital Encounter [facility] Imaging Services [address] [place] [address] Ness Guzman MD Discharge Disposition: Home or [...] on file Legal Sex Female 8:11 AM ROTARY PLANER SET UP OPERATOR Gender Identity Not on file Sexual Orientation Not on file 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 Not on file Not on file Not on file Last Filed Vital Signs Vital Sign Reading Time Taken Comments Blood Pressure 112/72 11/03/2024 12:31 PM CDT Pulse 71 10/25/2024 12:41 PM CDT Temperature 36.7 C (98.1 F) 10/25/2024 12:41 PM CDT Respiratory Rate 16 07/13/2024 11:05 AM ROTARY PLANER SET UP OPERATOR Oxygen Saturation 97% 10/25/2024 12:41 PM CDT Inhaled Oxygen Concentration - - Weight 81 kg (178 lb 9.6 oz) 11/03/2024 12:31 PM CDT Height 167.6 cm (5' 6) 11/03/2024 12:31 PM CDT Body Mass Index 28.83 11/03/2024 12:31 PM CDT Plan of Treatment Upcoming Encounters Date Type Department Care Team (Latest Contact Info) Description 01/08/2025 9:15 AM CDT Hospital Encounter [facility] GI Lab [address] [facility] [address] [place] [address] Oma Patten MD [address] [facility] [address] [place] [address] Personal history of colon cancer 01/08/2025 9:15 AM CDT - 01/08/2025 10:00 AM CDT Surgery [facility] GI Lab [address] [facility] [address] [place] [address] Oma Patten MD [address] [facility] [address] [place] [address] COLONOSCOPY 01/18/2025 12:30 PM CDT Appointment [facility] Imaging Services [facility] [address] [place] [address] Ness Guzman MD [address] [facility] [address] [place] [address] 01/24/2025 9:30 AM CDT Office Visit [facility] Oncology and Hematology [facility] [address] [address] Ness Guzman MD [address] [facility] [address] [place] [phone] 02/05/2025 1:30 PM CDT Office Visit [facility] [place] [address] [facility] [address] [place] [address] Oma Patten MD [address] [facility] [address] [place] [address] Scheduled Procedures Name Priority Associated Diagnoses Date/Ti me COLONOSCOPY Personal history of colon cancer 01/08/2025 9:15 AM CDT Health Maintenance Due Date Last Done Comments Pre-Diabetes and Diabetes Screening 1960 DTAP/TDAP/TD VACCINES (1 - Tdap) 1977 PNEUMOCOCCAL VACCINE 50+ YEA RS (1 of 1 - PCV) 2008 ZOSTER VACCINE (1 of 2) 2008 INFLUENZA VACCINE (#1) 2024 02/28/2020 OSTEOPOROSIS SCREENING 08/26/2025 1, 02/12/2016, 07/02/2012 BREAST CANCER SCREENING 11/01/2025 11/02/19 25, 02/03/2022, 01/20/2021, Additional history exists RSV VACCINE (60+ or ) (1 - 1-dose 75+ series) 2033 COLORECTAL SCREENING Discontinued 12/30/2023, 12/30/19 24 Colorectal Cancer Screening Discontinued FIT-DNA Q 3 years Discontinued FIT/FOBT Q 1 year Discontinued Flex Sig/CT Colonography Q 5 years Discontinued Medical Devices Implanted Type Area Vat Washer Device Identifier Shelf Expiration Date Model / Serial / Lot Clip Hemolok Lrg [id number] - Csc - [id number] Implanted:Qty : 1 on 01/18/2024 by Oma Patten MD at [facility] N/A: Abdomen TELEFLEX- WECK CLOSURE SYS 05/10/2027 [id number] / / [id number] Clip Hemolok Lrg [id number] - Csc - [id number] Implanted:Qty : 1 on 01/18/2024 by Oma Patten MD at [facility] Clip N/A: Abdomen TELEFLEX- WECK CLOSURE SYS 05/06/2028 [id number] / / [id number] Mammary Silicone Gel 421ml 15-421 - [id number] Implanted:Qty : 1 on 09/01/2013 by Bon Savage MD at [facility] Mammary Right: Breast ALLERGAN- MEDICAL 07/28/2018 [id number] / [id number] / Port Powerport Clearvue 8fr Mri [id number] - [id number] Implanted:Qty : 1 on 02/10/2024 by Oma Patten MD at [facility] Port N/A: Chest BARD AARON VASC 06/30/2025 [id number] / / [id number] Explanted Type Area Vat Washer Device Identifier Shelf Expiration Date Model / Serial / Lot Telephone Operators Supervisor Tissue Mammary 500ml 133mx-13 - [id number] Implanted:Qty : 1 on 08/10/2012 by Bon Savage MD at [facility] Explanted:Qty : 1 on 09/01/2013 by Bon Savage MD at [facility] Mammary Right: Breast ALLERGAN- MEDICAL 04/12/2016 [id number]-13 / [id number] / [id number] Description:Filled with 180 ml saline Port Pwrprt Slim Chrnflx Cath 6fr [id number] - [id number] Implanted:Qty : 1 on 08/26/2012 by Ellyn Rod MD at [facility] Explanted:Qty : 1 on 09/01/2013 by Bon Savage MD at [facility] Port Left: Chest 03/28/2014 [id number] / [id number] / [id number] Procedures Procedure Name Priority Date/Time Associated Diagnosis Comments MAMMO POST US/STEREO GUIDED PROCEDURE LT Routine 11/14/2024 2:35 PM CDT Abnormal mammogram MAMMO 3D JESSICA & STEREOTACTIC GUIDED BREAST BX LT Routine 11/14/2024 2:34 PM CDT Abnormal mammogram PATHOLOGY Pathology 11/14/2024 2:34 PM CDT MAMMO DIAG UNI LEFT 3D JESSICA W [...] Recently Relevant to Health Maintenance Results * MAMMO POST US/STEREO GUIDED PROCEDURE LT (11/14/2024 2:35 PM CDT) Anatomical Region Laterality Modality Breast Left Mammography 11/14/2024 2:36 PM CDT Addenda Addendum by Freedom Cazares MD on 11/16/2024 1:19 PM CDT PATHOLOGY CORRELATION: The patient recently underwent a stereotactic guided core biopsy Pathology results reveal fibroadenomatoid changes with associated calcifications. This is a concordant result. RECOMMENDATIONS: Recommend annual mammography Impressions 11/14/2024 2:41 PM CDT IMPRESSION: 1. Successful stereotactic core biopsy of the left breast with tissue marker placement. 2. Superior migration of the biopsy site marker with respect to the remaining calcifications. DICTATION LOCATION: [facility] Narrative 11/14/2024 2:41 PM CDT VACUUM-ASSISTED CORE BIOPSY OF THE LEFT BREAST UTILIZING TOMOGRAPHIC AND STEREOTACTIC GUIDANCE, BIOPSY SITE MARKER PLACEMENT, SPECIMEN RADIOGRAPH AND POST PROCEDURE DIAGNOSTIC LEFT MAMMOGRAM DATE: 11/14/2024 2:34 PM HISTORY: Concerning abnormality within the breast COMPARISON: Studies dating back to December 2020 PROCEDURE AND FINDINGS: The risks, potential benefits and alternatives of the procedure were discussed with the patient and written informed consent was obtained. The patient was placed in the prone position on the stereotactic table with the left breast in caudocranial compression and the callus occasions of interest posteriorly were localized and targeted utilizing digital imaging with tomosynthesis and stereotactic guidance. After sterile preparation of the skin, local anesthesia was administered at the skin puncture site and for deeper local anesthesia about the biopsy site. A small skin incision was then made. The vacuum-assisted biopsy needle was advanced to the area of interest utilizing tomographic and stereotactic guidance and multiple tissue cores were obtained. Specimen radiographs were performed. The needle was removed and hemostasis was achieved. A metallic clip was deployed into the biopsy cavity. Skin glue was applied to the area for closure. A two-view confirmatory full-field digital left mammogram was obtained after the procedure. On the postprocedure mammogram there is 4 cm superior migration of the biopsy site marker with respect to the remaining calcifications.. The patient tolerated the procedure well and there is no evidence of significant immediate complication. The patient was given verbal as well as written postprocedural instructions prior to release from the department. The tissue cores were submitted to surgical pathology in formalin for histologic analysis. Procedure Note Freedom Cazares MD - 11/14/2024 VACUUM-ASSISTED CORE BIOPSY OF THE LEFT BREAST UTILIZING TOMOGRAPHIC AND STEREOTACTIC GUIDANCE, BIOPSY SITE MARKER PLACEMENT, SPECIMEN RADIOGRAPH AND POST PROCEDURE DIAGNOSTIC LEFT MAMMOGRAM DATE: 11/14/2024 2:34 PM HISTORY: Concerning abnormality within the breast COMPARISON: Studies dating back to December 2020 PROCEDURE AND FINDINGS: The risks, potential benefits and alternatives of the procedure were discussed with the patient and written informed consent was obtained. The patient was placed in the prone position on the stereotactic table with the left breast in caudocranial compression and the callus occasions of interest posteriorly were localized and targeted utilizing digital imaging with tomosynthesis and stereotactic guidance. After sterile preparation of the skin, local anesthesia was administered at the skin puncture site and for deeper local anesthesia about the biopsy site. A small skin incision was then made. The vacuum-assisted biopsy needle was advanced to the area of interest utilizing tomographic and stereotactic guidance and multiple tissue cores were obtained. Specimen radiographs were performed. The needle was removed and hemostasis was achieved. A metallic clip was deployed into the biopsy cavity. Skin glue was applied to the area for closure. A two-view confirmatory full-field digital left mammogram was obtained after the procedure. On the postprocedure mammogram there is 4 cm superior migration of the biopsy site marker with respect to the remaining calcifications.. The patient tolerated the procedure well and there is no evidence of significant immediate complication. The patient was given verbal as well as written postprocedural instructions prior to release from the department. The tissue cores were submitted to surgical pathology in formalin for histologic analysis. IMPRESSION: 1. Successful stereotactic core biopsy of the left breast with tissue marker placement. 2. Superior migration of the biopsy site marker with respect to the remaining calcifications. DICTATION LOCATION: [facility] [place] Ness Guzman MD MAMMO ORDERABLES Edited Result - Final * MAMMO 3D JESSICA & STEREOTACTIC GUIDED BREAST BX LT (11/14/2024 2:34 PM CDT) Anatomical Region Laterality Modality Breast Left Mammography Tissue SPECIMEN FROM BREAST / Unknown 11/14/2024 2:35 PM CDT Addenda Addendum by Freedom Cazares MD on 11/16/2024 1:19 PM CDT PATHOLOGY CORRELATION: The patient recently underwent a stereotactic guided core biopsy Pathology results reveal fibroadenomatoid changes with associated calcifications. This is a concordant result. RECOMMENDATIONS: Recommend annual mammography Impressions 11/14/2024 2:41 PM CDT IMPRESSION: 1. Successful stereotactic core biopsy of the left breast with tissue marker placement. 2. Superior migration of the biopsy site marker with respect to the remaining calcifications. DICTATION LOCATION: [facility] Narrative 11/14/2024 2:41 PM CDT VACUUM-ASSISTED CORE BIOPSY OF THE LEFT BREAST UTILIZING TOMOGRAPHIC AND STEREOTACTIC GUIDANCE, BIOPSY SITE MARKER PLACEMENT, SPECIMEN RADIOGRAPH AND POST PROCEDURE DIAGNOSTIC LEFT MAMMOGRAM DATE: 11/14/2024 2:34 PM HISTORY: Concerning abnormality within the breast COMPARISON: Studies dating back to December 2020 PROCEDURE AND FINDINGS: The risks, potential benefits and alternatives of the procedure were discussed with the patient and written informed consent was obtained. The patient was placed in the prone position on the stereotactic table with the left breast in caudocranial compression and the callus occasions of interest posteriorly were localized and targeted utilizing digital imaging with tomosynthesis and stereotactic guidance. After sterile preparation of the skin, local anesthesia was administered at the skin puncture site and for deeper local anesthesia about the biopsy site. A small skin incision was then made. The vacuum-assisted biopsy needle was advanced to the area of interest utilizing tomographic and stereotactic guidance and multiple tissue cores were obtained. Specimen radiographs were performed. The needle was removed and hemostasis was achieved. A metallic clip was deployed into the biopsy cavity. Skin glue was applied to the area for closure. A two-view confirmatory full-field digital left mammogram was obtained after the procedure. On the postprocedure mammogram there is 4 cm superior migration of the biopsy site marker with respect to the remaining calcifications.. The patient tolerated the procedure well and there is no evidence of significant immediate complication. The patient was given verbal as well as written postprocedural instructions prior to release from the department. The tissue cores were submitted to surgical pathology in formalin for histologic analysis. Procedure Note Freedom Cazares MD - 11/14/2024 VACUUM-ASSISTED CORE BIOPSY OF THE LEFT BREAST UTILIZING TOMOGRAPHIC AND STEREOTACTIC GUIDANCE, BIOPSY SITE MARKER PLACEMENT, SPECIMEN RADIOGRAPH AND POST PROCEDURE DIAGNOSTIC LEFT MAMMOGRAM DATE: 11/14/2024 2:34 PM HISTORY: Concerning abnormality within the breast COMPARISON: Studies dating back to December 2020 PROCEDURE AND FINDINGS: The risks, potential benefits and alternatives of the procedure were discussed with the patient and written informed consent was obtained. The patient was placed in the prone position on the stereotactic table with the left breast in caudocranial compression and the callus occasions of interest posteriorly were localized and targeted utilizing digital imaging with tomosynthesis and stereotactic guidance. After sterile preparation of the skin, local anesthesia was administered at the skin puncture site and for deeper local anesthesia about the biopsy site. A small skin incision was then made. The vacuum-assisted biopsy needle was advanced to the area of interest utilizing tomographic and stereotactic guidance and multiple tissue cores were obtained. Specimen radiographs were performed. The needle was removed and hemostasis was achieved. A metallic clip was deployed into the biopsy cavity. Skin glue was applied to the area for closure. A two-view confirmatory full-field digital left mammogram was obtained after the procedure. On the postprocedure mammogram there is 4 cm superior migration of the biopsy site marker with respect to the remaining calcifications.. The patient tolerated the procedure well and there is no evidence of significant immediate complication. The patient was given verbal as well as written postprocedural instructions prior to release from the department. The tissue cores were submitted to surgical pathology in formalin for histologic analysis. IMPRESSION: 1. Successful stereotactic core biopsy of the left breast with tissue marker placement. 2. Superior migration of the biopsy site marker with respect to the remaining calcifications. DICTATION LOCATION: [facility] us Ness Guzman MD MAMMO ORDERABLES Edited Result - Final * PATHOLOGY (11/14/2024 2:34 PM CDT) CASE REPORT Surgical Pathology Report Case: [id number] Authorizing Provider: Freedom Cazares MD Collected: 11/14/2024 02:34 PM Ordering Location: [facility] Received: 11/14/2024 04:13 PM [facility] [place] [facility] Pathologist: Gabby Caro MD Specimen: Breast, left, calcifications 5:37 PM CDT [facility] FINAL DIAGNOSIS Breast, left breast calcifications, biopsy: - Fibroadenomatoid changes with associated coarse calcifications. 5 5:37 PM CDT [facility] at 1737 CDT GROSS DESCRIPTION Received in one container labeled Pamela T [place] and left breast calcifications is a gridlike device containing tissue in 3 compartments, all of which are indicated to contain calcifications. Within these compartments are 6 soft yellow fatty tissue fragments ranging from 1.3 to 2 cm in length and 0.2 to 0.4 cm in diameter. Entirely submitted labeled A1 through A2. ARC 5 5:37 PM CDT [facility] MICROSCOPIC DESCRIPTION The slides are labeled [id number] and Pamela Peralta. Sections of the left breast calcification biopsy show fibroglandular breast tissue with focal fibroadenomatoid changes and associated coarse calcifications. Periductal lymphocytic infiltrates are also present. No evidence of in situ or invasive carcinoma is identified. 5 5:37 PM CDT [facility] OPERATIVE PROCEDURE stereotactic core 5 5:37 PM CDT [facility] CLINICAL INFORMATION Left Breast Calcifications, TISSUE OBTAINED @ 1410 IN FORMALIN @ 1411 calcifications No Dx found. 5 5:37 PM CDT [facility] COMMENT Special stain, immunohistochemical, and/or in situ hybridization results are interpreted with controls that demonstrate appropriate staining reactions. Note on use of immunohistochemistry reagents and in situ hybridization probes: These tests were developed and their performance characteristics determined by [facility], Department of Laboratory Medicine. It has not been cleared or approved by the U.S. Food and Drug Administration. The FDA has determined that such clearance or approval is not necessary. The test is used for clinical purposes. It should not be regarded as investigational or for research. This laboratory is certified to perform high complexity testing. Frozen section/operating room consultation, gross examination and dissection, and case sign out may have been performed in part or completely in the following laboratories: [facility], CLIA #[id number] [address] [place] [address] [facility], [place] #[id number] [address] [place] [id number] [place] [address]/[place], [place] #[id number] [address] [place] [address] This report was created with the [employer] voice-activated dictation system. Inherent to this system is the possibility of syntax, grammar, punctuation and other errors that could impact the interpretation of the report. If there are interpretative questions about aspects of this report, please contact the performing pathologist. 5:37 PM CDT [facility] Tissue LEFT BREAST STRUCTURE / Unknown Collection / Unknown 11/14/2024 2:34 PM CDT 11/14/2024 4:13 PM CDT Comment:Left Breast Calcific ations, TISSUE OBTAINED @ 1410IN FORMALIN @ 1411 us Freedom Cazares MD PATHOLOGY/CYTOLOGY ORDERABLES Final Result [facility] CLIA# [id number] [address] [facility] [place] [address] * (ABNORMAL) MAMMO 3D JESSICA DIAGNOSTIC UNI LT W OR WO CAD (11/01/2024 10:40 AM CDT) Anatomical Region Laterality Modality Breast Left Mammography 11/01/2024 10:4 0 AM CDT Impressions 11/01/2024 11:03 AM CDT IMPRESSION: New grouped microcalcifications in the central inferior left breast RECOMMENDATIONS: Stereotactic biopsy left breast DICTATION LOCATION: [facility] 11/01/2024 11:03 AM CDT EXAM: LEFT BREAST [...] - 9.8 K/uL 10/25/2024 1:55 PM CDT [facility] RBC 4.18 3.90 - 4.90 M/uL 10/25/2024 1:55 PM CDT [facility] HEMOGLOBIN 12.7 11.8 - 14.8 g/dL 10/25/2024 1:55 PM CDT [facility] HEMATOCRIT 38.5 35.5 - 44.0 % 10/25/2024 1:55 PM CDT [facility] MCV 92.1 82.0 - 99.0 fL 10/25/2024 1:55 PM CDT [facility] MCH 30.4 27.2 - 32.6 pg 10/25/2024 1:55 PM CDT [facility] [facility] 33.0 31.5 - 35.5 g/dL 10/25/2024 1:55 PM CDT [facility] RDW 13.2 11.5 - 14.5 % 10/25/2024 1:55 PM CDT [facility] RDW-STDEV 44.9 37.1 - 48.7 fL 10/25/2024 1:55 PM CDT [facility] PLATELETS 198 140 - 350 K/uL 10/25/2024 1:55 PM CDT [facility] MPV 10.2 9.3 - 12.4 fL 10/25/2024 1:55 PM CDT [facility] NEUTROPHILS 51 % 10/25/2024 1:55 PM CDT [facility] LYMPHOCYTES 33 % 10/25/2024 1:55 PM CDT [facility] MONOCYTES 11 % 10/25/2024 1:55 PM CDT [facility] EOSINOPHILS 4 % 10/25/2024 1:55 PM CDT [facility] BASOPHILS 1 % 10/25/2024 1:55 PM CDT [facility] IMMATURE GRANULOCYTES 0 % 10/25/2024 1:55 PM CDT [facility] NEUTROPHIL ABSOLUTE 4.26 1.90 - 7.00 K/uL 10/25/2024 1:55 PM CDT [facility] . [facility] LYMPHOCYTE ABSOLUTE 2.71 0.70 - 4.50 K/uL 10/25/2024 1:55 PM CDT [facility] . [facility] MONOCYTE ABSOLUTE 0.90 0.10 - 1.30 K/uL 10/25/2024 1:55 PM CDT [facility] - . [facility] EOSINOPHIL ABSOLUTE 0.32 0.00 - 0.70 K/uL 10/25/2024 1:55 PM CDT [facility] BASOPHILS ABSOLUTE 0.08 0.00 - 0.20 K/uL 10/25/2024 1:55 PM CDT [facility] IMMATURE GRANULOCYTES ABSOLUTE 0.03 0.00 - 0.03 K/uL 10/25/2024 1:55 PM CDT [facility] Blood Collection / Unknown 10/25/2024 1:27 PM CDT 10/25/2024 1:50 PM CDT Ness Guzman MD HEMATOLOGY ORDERABLES Final Res ult Performing Organization Address [facility]/ZIP Co de Phone Number [facility] [employer] [facility] CLIA# [id number] [address] [place] [address] * CEA (10/25/2024 1:27 PM CDT) Pathologist [facility] CEA <2.0 See Note: ng/mL [employer] Comment: Reference Range: Non-Smoker: <2.5 Smoker: <5.0 This test was performed using the Siemens chemiluminescent method. Values obtained from different assay methods cannot be used interchangeably. CEA levels, regardless of value, should not be interpreted as absolute evidence of the presence or absence of disease. Test Performed at: [employer] [place] [id number] Seymour Snow MD Blood 10/25/2024 1:27 PM CDT 10/25/2024 2:52 PM CDT Ness Guzman MD CHEMISTRY ORDERABLES Final Resu lt Performing Organization Address [facility] Co de Phone Number [facility] [phone] [employer] [employer] [address] [address] [employer] [phone] * (ABNORMAL) COMPREHENSIVE METABOLIC PANEL (10/25/2024 1:27 PM CDT) Pathologist [facility] SODIUM 131(L) 136 - 145 mmol/L 10/25/2024 2:39 PM CDT [facility] POTASSIUM 4.2 3.5 - 5.0 mmol/L 10/25/2024 2:39 PM CDT [facility] CHLORIDE 95(L) 98 - 107 mmol/L 10/25/2024 2:39 PM [facility] [employer] [facility] CO2 26 22 - 29 mmol/L 10/25/2024 2:39 PM [facility] [employer] [facility] SERVICES - [facility] CALCIUM 9.7 8.6 - 10.2 mg/dL 10/25/2024 2:39 PM [facility] [employer] [facility] - . [facility] BUN 11 8 - 23 mg/dL 10/25/2024 2:39 PM [facility] - . [facility] CREATININE 0.79 0.51 - 0.95 mg/dL 10/25/2024 2:39 PM [facility] [employer] [facility] - . [facility] GLUCOSE 107(H) 74 - 99 mg/dL 10/25/2024 2:39 PM [facility] [employer] [facility] [facility] - . [facility] TOTAL PROTEIN 7.4 6.7 - 8.6 g/dL 10/25/2024 2:39 PM [facility] [employer] [facility] - . [facility] ALBUMIN 4.5 3.5 - 5.2 g/dL 10/25/2024 2:39 PM [facility] [employer] [facility] - . [facility] BILIRUBIN TOTAL 0.5 0.0 - 1.1 mg/dL 10/25/2024 2:39 PM [facility] [employer] [facility] - . [facility] ALKALINE PHOSPHATASE 276(H) 35 - 104 U/L 10/25/2024 2:39 PM [facility] AST 81(H) <33 U/L 10/25/2024 2:39 PM [facility] - . [facility] ALT 91(H) <34 U/L 10/25/2024 2:39 PM [facility] [employer] [facility] - . [facility] GFR >60 >=60 mL/min/1.7 3 sq meter 10/25/2024 2:39 PM [facility] [employer] [facility] Comment:eGFR calculated with 2020 CKD-EPI equation. Vegetarian diet, extremely high or low muscle mass, and may affect results. Cystatin C with Glomerular Filtration Rate is a suitable alternative for these patients. ANION GAP 10 8 - 16 mmol/L 10/25/2024 2:39 PM [facility] [employer] LABORATORY SERVICES [facility] Blood Collection / Unknown 10/25/2024 1:27 PM CDT 10/25/2024 2:00 PM CDT Narrative [facility] - 10/25/2024 2:39 PM CDT Samples containing indocyanine green cause interferences on Total and/or Direct Bilirubin and must not be measured. Ness Guzman MD CHEMISTRY ORDERABLES Final Resu lt [facility] CLIA# [id number] [address] [place] [address] * MAMMO PRIOR STUDY (10/19/2024 10:00 AM CDT) Narrative 11/01/2024 9:58 AM CDT This exam was auto finalized to allow images to be scanned to PACS. External Provider [facility] DIAGNOSTIC IMAGING ORDER NURYS Final Result * CT CHEST ABDOMEN PELVIS W CONT (10/17/2024 12:25 PM CDT) Anatomical Region Laterality Modality Chest Computed Tomogra phy 10/17/2024 12:1 4 PM CDT Impressions 10/17/2024 12:56 PM CDT IMPRESSION: 1. Postoperative changes as above. 2. No evidence of metastatic disease. DICTATION LOCATION: Location [facility] Narrative 10/17/2024 12:[address] CHEST, [...] No evidence of metastatic disease. DICTATION LOCATION: [address] Ness Guzman MD CT ORDERABLES Final Result * POC CREATININE (10/17/2024 12:12 PM CDT) CREATININE POC 1.00 0.60 - 1.30 mg/dL 10/17/2024 12:12 PM CDT [facility] GFR POC >60 >=60 mL/min/1.7 3 sq meter 10/17/2024 12:12 PM T [facility] Comment:eGFR calculated with 2020 CKD-EPI equation. Vegetarian diet, extremely high or low muscle mass, and may affect results. Cystatin C with Glomerular Filtration Rate is a suitable alternative for these patients. Blood, whole 10/17/2024 12:1 2 PM CDT 10/17/2024 3:05 PM CDT us Ness Guzman MD POINT OF CARE TESTING Final Res ult [facility] LEANDRO JERRY# [id number] [address] [place] [address] * COLONOSCOPY REPORT (12/30/2023 11:20 AM CDT) Narrative Procedure Note Sandi Hernandez MD - 12/30/2023 11:20 AM CDT [facility] Endoscopy Patient Name: Pamela Peralta Procedure [...] electronically. Number of Addenda: [address]; [place] [address] us Sandi Hernandez MD GI PROCEDURE ORDERABLES F inal Result * XR DEXA BONE DENSITY AXIAL 1 OR MORE SITES (08/26/2020 8:39 AM CDT) Anatomical Region Laterality Modality Digital Radiogra phy 08/26/2020 8:39 AM CDT Impressions 08/26/2020 8:46 AM CDT IMPRESSION: This is a summary page. Please refer to the complete detailed report found in the Imaging Section of the [facility] EMR. Osteopenia. Lumbar Spine: T-Score: -0.3 [...] found in the Imaging Section of the [facility] EMR. Osteopenia. Lumbar Spine: T-Score: -0.3 [...] Dr. Farzad Le MD DICTATION LOCATION: 1 [facility] Arvind Nolasco MD DIAGNOSTIC IMAGING ORDERABLES Final Result from Last 3 Months or Most Recently Relevant to Health Maintenance Insurance RX [employer] RX [employer] (INTERNAL) [facility] [employer] RX [employer] Medicare Part D MEDICARE PART A AND B Advance Directives For more information, please contact: [phone] * Full Code (Latest Code Status on [...] 2:53 AM 12/31/2023 7:55 PM Care Teams Dance Master Relationship Specialty Start Date End Date Ashwini Enciso DO [address] [place] [phone] PCP - General Family Practice 01/06/21
== END 2024-12-04 10:18 | disposition home or self-care (01) ==
PROVIDERS: PCP Family Medicine; Visit Provider Physician Assistant Surgical
DX: S62.623D Displaced fracture of middle phalanx of left middle finger, subsequent encounter for fracture with routine healing (principal); X58.XXXD Exposure to other specified factors, subsequent encounter
CPT/HCPCS: 73140